=== PATIENT | female | born 1945 | race Hispanic/Latino ===

== ENCOUNTER 2019-02-02 17:28 | Inpatient (IN) | payer MEDICARE ==
[2019-02-02] MEDS: ATIVAN IM PRN (23:17)
[2019-02-02] MEDS: HALDOL IM PRN (23:18)
--- NOTE | 2019-02-03 11:03 | History and Physical Report ---
GP History & Physical - History of Present Illness Date of admission: 02/02/19 Date of Examination: 02/03/19 Reason for Admission: Impaired reality testing, Psychopathology interference, Severe anxiety/depression Chief Complaint: I tired to kill myself History of Present Illness: Patient is a 74 yo retired woman with a history of MDD, Anxiety disorder and multiple medical problems including hypertension, gout, dyslipidemia, CAD s/p CABG, CHF, afib no on anticoagulation, CVA x 2, early dementia and DM type. She was transferred from [facility] to [facility] unit after suicidal attempt via Drug Overdose with Xanax. In my interview with the patient, she admits to have intentional overdosed on Xanax with suicidal intent. She endorses feeling depressed and overwhelmed. She relates her depression to multiple stresses including the behavior of his and their son who lives with them. Her appetite and sleep are decreased. She denies HI/AVH/Paranoia. She continues to feel very depressed and overwhelmed this morning. Legal Status: Voluntary Patient Problems: Current Active Problems Anxiety disorder, unspecified (Acute) MDD (major depressive disorder), recurrent episode, severe (Acute) Reaction to Hospitalization: Resistant Substance History - Substance History Drug Use: none Hx Tobacco Use: No Alcohol Use: No Past psychiatric history - Past Medical History Past Medical History: arthritis, diabetes, hypertension - past Psychiatric treatment and history Psych: Anxiety, Depression - Social History Social history: , lives with family (completed 7th grade ed, retired, no legal problems , has access to guns at home. ) Review of Systems All systems: negative Psychiatric: anxiety, depression Results - Results Labs/Vitals: Laboratory Last Values POC Glucose 264 (70-105) H 02/02/19 21:08 Last Vital Signs Temp 97.5 F L 02/02/19 22:00 Pulse 65 02/02/19 22:00 Resp 18 02/02/19 22:00 BP 182/85 02/02/19 22:00 Pulse Ox 95 02/02/19 22:00 Physical Examination - Constitutional Vitals: Vital Signs Temp Pulse Resp BP Pulse Ox 97.5 F L 65 18 182/85 95 02/02/19 22:00 02/02/19 22:00 02/02/19 22:00 02/02/19 22:00 02/02/19 22:00 Temperature -Last 24 Hours Temperature 97.5 F Temperature 97.5 F General appearance: Present: no acute distress - EENT Eyes: Present: PERRL, EOM intact ENT: hearing intact, clear oral mucosa - Neck Neck: Present: supple, normal ROM - Respiratory Respiratory effort: normal Mental Status Exam - Vital signs Last Vital Signs Temp 97.5 F L 02/02/19 22:00 Pulse 65 02/02/19 22:00 Resp 18 02/02/19 22:00 BP 182/85 02/02/19 22:00 Pulse Ox 95 02/02/19 22:00 - Exam Orientation: time, place, person Affect: depressed, anxious Mood: congruent with affect Thought Process: Intact Perceptions: none Speech: normal rate and pattern Concentration: focused Motor activity: normal Level of consciousness: alert Memory: Intact Sleep Symptoms: Insomnia Appetite: decreased Interaction: cooperative Mini mental status exam(if necessary): 24-30 Assessment and Plan - Psychiatric problem (1) MDD (major depressive disorder), recurrent episode, severe Current Visit: Yes Status: Acute plan to address problem: Patient will be admitted for inpatient psychiatric evaluation, medication adjustment and close monitoring The patient's behavior, mood, sleep and appetite will be closely monitored. Patient will be enrolled in individual and group therapeutic sessions and encouraged to attend. Patient will be provided with a safe and structured environment. Patient's physical health needs will be addressed by the Hospitalist. Social Assessment will be completed and the Cardiac Monitor Technician will work with patient and family to ensure a suitable and safe disposition Medication adjustment will be made as clinically indicated The patient agreed on the treatment plan, understood the risk, benefit, alternative treatment, potential consequence of no treatment, and gave informed consent. (2) Anxiety disorder, unspecified Current Visit: Yes Status: Acute plan to address problem: As above Physician Certification - Certification Statement Physician Certification Statement: This is an acknowledgement statement that STEPHANY STEPHENSON is a 74 year old F who requires inpatient psychiatric admission for treatment which could reasonably be expected to improve the patient's condition for MDD Estimated period of time patient will need to remain in the hospital: 7 days Plan for post-hospital care: Out-patient treatment Medications & Allergies - Medications Allergies/Adverse Reactions: Allergies codeine Adverse Reaction (Verified 02/03/19 03:04) Unknown morphine Adverse Reaction (Verified 02/03/19 03:04) Unknown Penicillins Adverse Reaction (Verified 02/03/19 03:04) Unknown Home Medications: Home Medications Medication Instructions Recorded Confirmed Last Taken Type Hydrocodone-Acetamin 5-300 mg 5 - 325 mg PO BID PRN 02/02/19 02/02/19 Unknown History Insulin NPH Human Isophane 10 units SUB-Q TID 02/02/19 02/02/19 Unknown History [Humulin N] ALPRAZolam [Xanax TAB] 0.5 mg PO BID 02/03/19 02/03/19 Unknown History ARIPiprazole [Abilify TAB] 2 mg PO DAILY 02/03/19 02/03/19 Unknown History Allopurinol [Zyloprim] 300 mg PO DAILY 02/03/19 02/03/19 Unknown History Aspirin 325 mg PO DAILY 02/03/19 02/03/19 Unknown History Atenolol [Tenormin] 50 mg PO DAILY 02/03/19 02/03/19 Unknown History AtorvaSTATin [Lipitor] 40 mg PO HS 02/03/19 02/03/19 Unknown History Clopidogrel [Plavix] 75 mg PO DAILY 02/03/19 02/03/19 Unknown History Escitalopram [Lexapro] 10 mg PO DAILY 02/03/19 02/03/19 Unknown History Fexofenadine HCl 180 mg PO DAILY 02/03/19 02/03/19 Unknown History Insulin Glargine [Lantus VIAL] 30 units SUB-Q HS 02/03/19 02/03/19 Unknown History Insulin Regular, Human [Humulin R] 10 units SUB-Q TID 02/03/19 02/03/19 Unknown History Magnesium Oxide 400 400 mg PO DAILY 02/03/19 02/03/19 Unknown History Montelukast Sodium 10 mg PO DAILY 02/03/19 02/03/19 Unknown History Potassium Chloride [K-Dur] 20 meq PO DAILY 02/03/19 02/03/19 Unknown History Torsemide [Demadex] 20 mg PO DAILY 02/03/19 02/03/19 Unknown History Trazodone HCl 150 mg PO HS 02/03/19 02/03/19 Unknown History amLODIPine [Norvasc] 5 mg PO DAILY 02/03/19 02/03/19 Unknown History Active Medications: Generic Name Dose Route Start Last Admin Trade Name Freq PRN Reason Stop Dose Admin Acetaminophen 650 mg 02/03/19 10:03 Tylenol PO Q6H PRN Pain, Mild (1-3) Haloperidol 5 mg 02/02/19 22:53 Haldol PO Q6H PRN Agitation Haloperidol Lactate 5 mg 02/02/19 22:51 02/02/19 23:18 Haldol IM 5 mg Q6H PRN Administration Agitation Lorazepam 2 mg 02/02/19 22:51 02/02/19 23:17 Ativan IM 2 mg Q6H PRN Administration Agitation Lorazepam 2 mg 02/02/19 22:53 Ativan PO Q6H PRN Agitation
[2019-02-03] MEDS ORDERED: ARIPIPRAZOLE 2 MG PO SCH (11:15)
[2019-02-03 11:36] LABS: Basophils # (Auto) 0.1 K/mm3 (0.0-0.1); Basophils % (Auto) 0.6 % (0.0-1.8); Eosinophils # (Auto) 0.5 K/mm3 (0.0-0.4); Eosinophils % (Auto) 4.8 % (0.0-4.3); Hematocrit 41.5 % (30.3-42.9); Hemoglobin 13.9 gm/dl (10.1-14.3); Lymphocytes # (Auto) 1.8 K/mm3 (1.2-5.4); Lymphocytes % (Auto) 17.8 % (13.4-35.0); Mean Corpuscular HGB Conc 33 % (30-34); Mean Corpuscular Volume 90 fl (79-97); Monocytes # (Auto) 0.8 K/mm3 (0.0-0.8); Monocytes % (Auto) 8.3 % (0.0-7.3); Platelet Count 223 K/mm3 (140-440); Red Blood Count 4.62 M/mm3 (3.65-5.03); Red Cell Distribution Width 14.6 % (13.2-15.2)
[2019-02-03 11:50] LABS: Calcium 8.9 mg/dL (8.4-10.2); Chol/HDL Ratio 5.75 %
[2019-02-03] MEDS: LEXAPRO PO SCH (11:56)
[2019-02-03] MEDS: TYLENOL PO PRN (11:56)
--- NOTE | 2019-02-03 12:27 | Consultation ---
History of Present Illness - Reason for Consult Consult date: 02/03/19 Hyperglycemia, Diabetes Mellitus needing SSI - History of Present Illness Patient is a 74 yo woman with a history of hypertension, gout, dyslipidemia, CAD s/p CABG, CHF, afib no on anticoagulation, CVA x 2, early d ementia, depression and IDDM type 2 on Lantus and Humulin R SSI who presented from [facility] to [facility] Ger[facility] unit after suicidal attempt via Drug Overdose with Xanax. We are consulted for Medical evaluation and management of DM. Patient denies SI. She fell and bite her tongue after the drug overdose. Currently, she denies any specific complaints. PMH: as hpi PSH: left shoulder surgery, bilateral TKR, hysterectomy, CABG, back surgery with rods down spine SH: denies tob/etoh/illicit drug use FH: hypertesnion, DM, OA ROS: Constitutional: denies: fever ENT: denies: throat or neck pain Respiratory: denies: cough, shortness of breath Cardiovascular: denies: chest pain Endocrine: denies unexplained weight loss or gain Gastrointestinal: denies: abdominal pain, nausea Genitourinary: denies: dysuria Rectal: denies no incontinence, no bleeding, no itching, no discharge Musculoskeletal: denies swelling, myaglia, muscle weakness Skin: denies: rash Neurological: denies: headache Hematological/Lymphatic: denies: easy bleeding or easy bruising Allergic/Immunologic: no urticaria, no allergic rhinitis, no anaphylaxis Psych: denies sadness or hopelessness, SI/HI Medications and Allergies Allergies Allergy/AdvReac Type Severity Reaction Status Date / Time codeine AdvReac Unknown Verified 02/03/19 03:04 morphine AdvReac Unknown Verified 02/03/19 03:04 Penicillins AdvReac Unknown Verified 02/03/19 03:04 Home Medications Medication Instructions Recorded Confirmed Last Taken Type Hydrocodone-Acetamin 5-300 mg 5 - 325 mg PO BID PRN 02/02/19 02/02/19 Unknown History Insulin NPH Human Isophane 10 units SUB-Q TID 02/02/19 02/02/19 Unknown History [Humulin N] ALPRAZolam [Xanax TAB] 0.5 mg PO BID 02/03/19 02/03/19 Unknown History ARIPiprazole [Abilify TAB] 2 mg PO DAILY 02/03/19 02/03/19 Unknown History Allopurinol [Zyloprim] 300 mg PO DAILY 02/03/19 02/03/19 Unknown History Aspirin 325 mg PO DAILY 02/03/19 02/03/19 Unknown History Atenolol [Tenormin] 50 mg PO DAILY 02/03/19 02/03/19 Unknown History AtorvaSTATin [Lipitor] 40 mg PO HS 02/03/19 02/03/19 Unknown History Clopidogrel [Plavix] 75 mg PO DAILY 02/03/19 02/03/19 Unknown History Escitalopram [Lexapro] 10 mg PO DAILY 02/03/19 02/03/19 Unknown History Fexofenadine HCl 180 mg PO DAILY 02/03/19 02/03/19 Unknown History Insulin Glargine [Lantus VIAL] 30 units SUB-Q HS 02/03/19 02/03/19 Unknown History Insulin Regular, Human [Humulin R] 10 units SUB-Q TID 02/03/19 02/03/19 Unknown History Magnesium Oxide 400 400 mg PO DAILY 02/03/19 02/03/19 Unknown History Montelukast Sodium 10 mg PO DAILY 02/03/19 02/03/19 Unknown History Potassium Chloride [K-Dur] 20 meq PO DAILY 02/03/19 02/03/19 Unknown History Torsemide [Demadex] 20 mg PO DAILY 02/03/19 02/03/19 Unknown History Trazodone HCl 150 mg PO HS 02/03/19 02/03/19 Unknown History amLODIPine [Norvasc] 5 mg PO DAILY 02/03/19 02/03/19 Unknown History Active Meds: Active Medications Acetaminophen (Tylenol) 650 mg PO Q6H PRN PRN Reason: Pain, Mild (1-3) Last Admin: 02/03/19 11:56 Dose: 650 mg Documented by: Clonazepam (Klonopin) 0.5 mg PO BID [facility] Last Admin: 02/03/19 11:56 Dose: 0.5 mg Documented by: Escitalopram Oxalate (Lexapro) 10 mg PO DAILY [facility] Last Admin: 02/03/19 11:56 Dose: 10 mg Documented by: Haloperidol (Haldol) 5 mg PO Q6H PRN PRN Reason: Agitation Haloperidol Lactate (Haldol) 5 mg IM Q6H PRN PRN Reason: Agitation Last Admin: 02/02/19 23:18 Dose: 5 mg Documented by: Lorazepam (Ativan) 2 mg IM Q6H PRN PRN Reason: Agitation Last Admin: 02/02/19 23:17 Dose: 2 mg Documented by: Lorazepam (Ativan) 2 mg PO Q6H PRN PRN Reason: Agitation Miscellaneous Medication (Aripiprazole [Abilify Tab]) 2 mg PO DAILY BENEDICTO Trazodone HCl (Desyrel) 150 mg PO QHS BENEDICTO Exam - Physical Exam Narrative exam: Gen: WDWN, NAD, Awake, Alert, Orientated HEENT: NCAT, EOMI, PERRL, OP with right tip of tongue laceration Neck: supple, no adenopathy, no thyromegaly, no JVD CVS/Heart: irregular normal S1S2, pulses present bilaterally Chest/Lungs: CTA B, Symmetrical chest expansion, good air entry bilaterally GI/Abdomen: soft, NTND, good bowel sounds, no guarding or rebound /Bladder: no suprapubic tenderness, no CVA or paraspinal tenderness Extermity/Skin: no c/c/e, no obvious rash MSK: FROM x 4 Neuro: CN 2-12 grossly intact, no new focal deficits Psych: calm - Constitutional Vitals: Temp Pulse Resp BP Pulse Ox 97.5 F L 65 18 182/85 95 02/02/19 22:00 02/02/19 22:00 02/02/19 22:00 02/02/19 22:00 02/02/19 22:00 Results - Labs CBC & Chem 7: 02/03/19 11:18 02/03/19 11:18 Labs: Abnormal lab results 02/02/19 02/03/19 02/03/19 Range/Units 21:08 07:04 11:18 Arroyo % (Auto) 8.3 H (0.0-7.3) % Eos % (Auto) 4.8 H (0.0-4.3) % Eos # 0.5 H (0.0-0.4) K/mm3 Sodium (137-145) mmol/L Potassium (3.6-5.0) mmol/L Carbon Dioxide (22-30) mmol/L BUN (7-17) mg/dL Glucose (65-100) mg/dL POC Glucose 264 H 263 H (70-105) Hemoglobin A1c (4-6) % Albumin (3.9-5) g/dL Triglycerides (2-149) mg/dL HDL Cholesterol (40-59) mg/dL 02/03/19 02/03/19 02/03/19 Range/Units 11:18 11:18 11:57 Arroyo % (Auto) (0.0-7.3) % Eos % (Auto) (0.0-4.3) % Eos # (0.0-0.4) K/mm3 Sodium 136 L (137-145) mmol/L Potassium 3.5 L (3.6-5.0) mmol/L Carbon Dioxide 20 L (22-30) mmol/L BUN 18 H (7-17) mg/dL Glucose 333 H (65-100) mg/dL POC Glucose 308 H (70-105) Hemoglobin A1c 9.1 H (4-6) % Albumin 3.0 L (3.9-5) g/dL Triglycerides 315 H (2-149) mg/dL HDL Cholesterol 33 L (40-59) mg/dL Assessment and Plan Patient is a 74 yo woman with a history of hypertension, gout, dyslipidemia, CAD s/p CABG, CHF, afib no on anticoagulation, CVA x 2, early dementia, depression and IDDM type 2 on Lantus and Humulin R SSI who presented from [facility] to [facility] unit after suicidal attempt via Drug Overdose with Xanax. We are consulted for Medical evaluation and management of DM. Patient denies SI. She fell and bite her tongue after the drug overdose. Currently, she denies any specific complaints. -Uncontrolled type 2 DM with hyperglycemia on insulin: Restart Lantus and sliding scale, check A1C (I reviewed [facility] medical records and did not see an A1c) -Afib: continue rate control medication, not on anticoagulation maybe due to f all risk,get baseline EKG -CHF: continue lasix 20mg/d -Gout: Allopurinol -Depression with SA: per psych -Stage 2 sacral ulcer: consult wound care -Functional quadriplegia: consult PT -Accelerated hypertension: restart bblocker Thank you, please call me with future issues
[2019-02-03] MEDS ORDERED: NON-FORMULARY (Aripiprazole [Abilify Tab] 5 MG) PO SCH (13:00)
[2019-02-03] MEDS ORDERED: ZYLOPRIM PO SCH (13:00)
[2019-02-03] MEDS ORDERED: MIRALAX 3350 PO PRN (13:00)
[2019-02-03] MEDS ORDERED: D50W (25GM) Syringe IV PRN (13:00)
[2019-02-03] MEDS: ARIPiprazole PO SCH (13:36)
[2019-02-03] MEDS: ASPIRIN PO SCH (13:38)
[2019-02-03] MEDS: PLAVIX PO SCH (13:38)
[2019-02-03] MEDS: PROTONIX PO SCH (13:38)
[2019-02-03] MEDS: HumaLOG SUB-Q SCH ×2 (13:39→17:15)
[2019-02-03] MEDS: NORVASC PO SCH (13:56)
[2019-02-03] MEDS: ZYLOPRIM PO SCH (15:27)
[2019-02-03 15:50] LABS: Bilirubin,Urine NEG (Negative); Blood,Urine MOD (Negative); Color,Urine Yellow (Yellow); Hyaline Casts,Urine 2 /LPF; Mucus,Urine FEW /HPF; Urobilinogen,Urine < 2.0 mg/dL (<2.0)
[2019-02-03 15:57] LABS: Protein,Urine >500 mg/dL (Negative)
[2019-02-03] MEDS ORDERED: NON-FORMULARY (Trazodone Hcl [Trazodone Hcl] 150 MG) PO SCH (22:00)
[2019-02-03] MEDS: ATIVAN PO PRN (22:35)
[2019-02-03] MEDS: DESYREL PO SCH (22:36)
[2019-02-03] MEDS: LANTUS SUB-Q SCH (23:45)
[2019-02-04] MEDS: HumaLOG SUB-Q SCH ×5 (00:11→21:14)
[2019-02-04 07:04] LABS: Hematocrit 39.1 % (30.3-42.9); Hemoglobin 13.4 gm/dl (10.1-14.3); Mean Corpuscular HGB Conc 34 % (30-34); Mean Corpuscular Volume 89 fl (79-97); Platelet Count 197 K/mm3 (140-440); Red Cell Distribution Width 14.7 % (13.2-15.2)
[2019-02-04] MEDS ORDERED: K-DUR PO NR (07:31)
[2019-02-04 07:35] LABS: Calcium 8.8 mg/dL (8.4-10.2)
[2019-02-04] MEDS ORDERED: NON-FORMULARY (Fexofenadine Hcl [Fexofenadine Hcl] 180 MG) PO SCH (10:00)
[2019-02-04] MEDS ORDERED: MAGNESIUM OXIDE PO SCH (10:00)
[2019-02-04] MEDS: ARIPiprazole PO SCH (10:12)
[2019-02-04] MEDS: ZYLOPRIM PO SCH (10:14)
[2019-02-04] MEDS: K-DUR PO SCH (10:14)
[2019-02-04] MEDS: ASPIRIN PO SCH (10:15)
[2019-02-04] MEDS: LEXAPRO PO SCH (10:15)
[2019-02-04] MEDS: PLAVIX PO SCH (10:15)
[2019-02-04] MEDS: SINGULAIR PO SCH (10:15)
[2019-02-04] MEDS: CLARITIN PO SCH (10:15)
[2019-02-04] MEDS: PROTONIX PO SCH (10:15)
[2019-02-04] MEDS: MAG-OX PO SCH (10:15)
[2019-02-04] MEDS: NORVASC PO SCH (10:17)
[2019-02-04] MEDS: TENORMIN PO SCH (10:17)
[2019-02-04] MEDS: HALDOL PO PRN (21:13)
[2019-02-04] MEDS: ATIVAN PO PRN (21:13)
[2019-02-04] MEDS: DESYREL PO SCH (21:13)
[2019-02-04] MEDS: LANTUS SUB-Q SCH (22:16)
[2019-02-05] MEDS: HumaLOG SUB-Q SCH ×4 (08:11→21:18)
[2019-02-05] MEDS: K-DUR PO SCH (09:13)
[2019-02-05] MEDS: ARIPiprazole PO SCH (09:13)
[2019-02-05] MEDS: PLAVIX PO SCH (09:13)
[2019-02-05] MEDS: ASPIRIN PO SCH (09:14)
[2019-02-05] MEDS: CLARITIN PO SCH (09:14)
[2019-02-05] MEDS: TENORMIN PO SCH (09:14)
[2019-02-05] MEDS: SINGULAIR PO SCH (09:15)
[2019-02-05] MEDS: NORVASC PO SCH (09:15)
[2019-02-05] MEDS: ZYLOPRIM PO SCH (09:15)
[2019-02-05] MEDS: PROTONIX PO SCH (09:46)
[2019-02-05] MEDS: LEXAPRO PO SCH (09:46)
[2019-02-05] MEDS: MAG-OX PO SCH (09:46)
--- NOTE | 2019-02-05 16:56 | Progress Note ---
Subjective Date of service: 02/05/19 Principal diagnosis: Severe depression and Anxiety Subjective Comment: The patient is easily irritable, anxious and very depressed. She is guarded and unrealistic. She denies SI/HI/AVH/Paranoia. She is compliant with medications and denies side effects. MSE Orientation: time, place, person Affect: depressed, anxious Mood: congruent with affect Thought Process: Intact Perceptions: none Speech: normal rate and pattern Concentration: focused Motor activity: normal Level of consciousness: alert Memory: Intact Sleep Symptoms: Insomnia Appetite: decreased Interaction: cooperative Objective - Criteria for Continued Treatment Criteria for Continued Treatment: Improving Level of Functioning, Stablizing Level of Functioning, Improving Emotional/Socia - Objective Observation Participation Level: Moderate Assessment and Plan - Patient Problems (1) MDD (major depressive disorder), recurrent episode, severe Current Visit: Yes Status: Acute Plan to address problem: Patient will be admitted for inpatient psychiatric evaluation, medication adjustment and close monitoring The patient's behavior, mood, sleep and appetite will be closely monitored. Patient will be enrolled in individual and group therapeutic sessions and encouraged to attend. Patient will be provided with a safe and structured environment. Patient's physical health needs will be addressed by the Hospitalist. Social Assessment will be completed and the Instrumentation And Controls Technician will work with patient and family to ensure a suitable and safe disposition Medication adjustment will be made as clinically indicated The patient agreed on the treatment plan, understood the risk, benefit, alternative treatment, potential consequence of no treatment, and gave informed consent. (2) Anxiety disorder, unspecified Current Visit: Yes Status: Acute Plan to address problem: As above Medications & Allergies - Medications Allergies/Adverse Reactions: Allergies codeine Adverse Reaction (Verified 02/03/19 03:04) Unknown morphine Adverse Reaction (Verified 02/03/19 03:04) Unknown Penicillins Adverse Reaction (Verified 02/03/19 03:04) Unknown Home Medications: Home Medications Medication Instructions Recorded Confirmed Last Taken Type Hydrocodone-Acetamin 5-300 mg 5 - 325 mg PO BID PRN 02/02/19 02/02/19 Unknown History Insulin NPH Human Isophane 10 units SUB-Q TID 02/02/19 02/02/19 Unknown History [Humulin N] ALPRAZolam [Xanax TAB] 0.5 mg PO BID 02/03/19 02/03/19 Unknown History ARIPiprazole [Abilify TAB] 2 mg PO DAILY 02/03/19 02/03/19 Unknown History Allopurinol [Zyloprim] 300 mg PO DAILY 02/03/19 02/03/19 Unknown History Aspirin 325 mg PO DAILY 02/03/19 02/03/19 Unknown History Atenolol [Tenormin] 50 mg PO DAILY 02/03/19 02/03/19 Unknown History AtorvaSTATin [Lipitor] 40 mg PO HS 02/03/19 02/03/19 Unknown History Clopidogrel [Plavix] 75 mg PO DAILY 02/03/19 02/03/19 Unknown History Escitalopram [Lexapro] 10 mg PO DAILY 02/03/19 02/03/19 Unknown History Fexofenadine HCl 180 mg PO DAILY 02/03/19 02/03/19 Unknown History Insulin Glargine [Lantus VIAL] 30 units SUB-Q HS 02/03/19 02/03/19 Unknown History Insulin Regular, Human [Humulin R] 10 units SUB-Q TID 02/03/19 02/03/19 Unknown History Magnesium Oxide 400 400 mg PO DAILY 02/03/19 02/03/19 Unknown History Montelukast Sodium 10 mg PO DAILY 02/03/19 02/03/19 Unknown History Potassium Chloride [K-Dur] 20 meq PO DAILY 02/03/19 02/03/19 Unknown History Torsemide [Demadex] 20 mg PO DAILY 02/03/19 02/03/19 Unknown History Trazodone HCl 150 mg PO HS 02/03/19 02/03/19 Unknown History amLODIPine [Norvasc] 5 mg PO DAILY 02/03/19 02/03/19 Unknown History Active Medications: Generic Name Dose Route Start Last Admin Trade Name Freq PRN Reason Stop Dose Admin Acetaminophen 650 mg 02/03/19 10:03 02/03/19 11:56 Tylenol PO 650 mg Q6H PRN Administration Pain, Mild (1-3) Allopurinol 150 mg 02/03/19 14:00 02/05/19 09:15 Zyloprim PO 150 mg DAILY BENEDICTO Administration Amlodipine Besylate 5 mg 02/03/19 14:00 02/05/19 09:15 Norvasc PO 5 mg DAILY BENEDICTO Administration Aripiprazole 5 mg 02/03/19 14:00 02/05/19 09:13 Abilify PO 5 mg QDAY BENEDICTO Administration Aspirin 325 mg 02/03/19 14:00 02/05/19 09:14 Aspirin PO 325 mg DAILY BENEDICTO Administration Atenolol 50 mg 02/04/19 10:00 02/05/19 09:14 Tenormin PO 50 mg DAILY BENEDICTO Administration Atorvastatin Calcium 40 mg 02/03/19 22:00 02/04/19 21:12 Lipitor PO 40 mg HS BENEDICTO Administration Clonazepam 0.5 mg 02/03/19 12:00 02/05/19 09:13 Klonopin PO 0.5 mg BID BENEDICTO Administration Clopidogrel Bisulfate 75 mg 02/03/19 14:00 02/05/19 09:13 Plavix PO 75 mg DAILY BENEDICTO Administration Dextrose 50 ml 02/03/19 13:00 D50w (25gm) Syringe IV PRN PRN Hypoglycemia Escitalopram Oxalate 10 mg 02/03/19 12:00 02/05/19 09:46 Lexapro PO 10 mg DAILY BENEDICTO Administration Haloperidol 5 mg 02/02/19 22:53 02/04/19 21:13 Haldol PO 5 mg Q6H PRN Administration Agitation Haloperidol Lactate 5 mg 02/02/19 22:51 02/02/19 23:18 Haldol IM 5 mg Q6H PRN Administration Agitation Insulin Glargine 20 units 02/03/19 22:00 02/04/19 22:16 Lantus SUB-Q 20 units HS BENEDICTO Administration Insulin Human Lispro 0 unit 02/03/19 13:00 02/05/19 11:47 Humalog SUB-Q 6 unit ACHS BENEDICTO Administration Protocol Loratadine 10 mg 02/04/19 10:00 02/05/19 09:14 Claritin PO 10 mg DAILY BENEDICTO Administration Lorazepam 2 mg 02/02/19 22:51 02/02/19 23:17 Ativan IM 2 mg Q6H PRN Administration Agitation Lorazepam 2 mg 02/02/19 22:53 02/04/19 21:13 Ativan PO 2 mg Q6H PRN Administration Agitation Magnesium Oxide 400 mg 02/04/19 10:00 02/05/19 09:46 Mag-Ox PO 400 mg QDAY BENEDICTO Administration Montelukast Sodium 10 mg 02/04/19 10:00 02/05/19 09:15 Singulair PO 10 mg DAILY BENEDICTO Administration Pantoprazole Sodium 40 mg 02/03/19 13:00 02/05/19 09:46 Protonix PO 40 mg QDAY BENEDICTO Administration Polyethylene Glycol 17 gm 02/03/19 13:00 Miralax 3350 PO QDAY PRN Constipation Potassium Chloride 20 meq 02/04/19 10:00 02/05/19 09:13 K-Dur PO 20 meq DAILY BENEDICTO Administration Trazodone HCl 150 mg 02/03/19 22:00 02/04/19 21:13 Desyrel PO 150 mg QHS BENEDICTO Administration
[2019-02-05] MEDS: TYLENOL PO PRN (17:04)
[2019-02-05] MEDS: HALDOL PO PRN (20:13)
[2019-02-05] MEDS: ATIVAN PO PRN (20:13)
[2019-02-05] MEDS: LANTUS SUB-Q SCH (21:17)
[2019-02-05] MEDS: DESYREL PO SCH (21:19)
--- NOTE | 2019-02-06 09:15 | Progress Note ---
Subjective Date of service: 02/06/19 Principal diagnosis: Severe depression and Anxiety Subjective Comment: The patient is anxious and very depressed. She is guarded and unrealistic. She denies SI/HI/AVH/Paranoia. She is compliant with medications and denies side effects. MSE Orientation: time, place, person Affect: depressed, anxious Mood: congruent with affect Thought Process: Intact Perceptions: none Speech: normal rate and pattern Concentration: focused Motor activity: normal Level of consciousness: alert Memory: Intact Sleep Symptoms: Insomnia Appetite: decreased Interaction: cooperative Objective - Criteria for Continued Treatment Criteria for Continued Treatment: Improving Level of Functioning, Stablizing Level of Functioning, Improving Emotional/Socia - Objective Observation Participation Level: Minimal Assessment and Plan - Patient Problems (1) MDD (major depressive disorder), recurrent episode, severe Current Visit: Yes Status: Acute Plan to address problem: Patient will be admitted for inpatient psychiatric evaluation, medication adjustment and close monitoring The patient's behavior, mood, sleep and appetite will be closely monitored. Patient will be enrolled in individual and group therapeutic sessions and encouraged to attend. Patient will be provided with a safe and structured environment. Patient's physical health needs will be addressed by the Hospitalist. Social Assessment will be completed and the Outdoor Landscape Architect will work with patient and family to ensure a suitable and safe disposition Medication adjustment will be made as clinically indicated The patient agreed on the treatment plan, understood the risk, benefit, alternative treatment, potential consequence of no treatment, and gave informed consent. (2) Anxiety disorder, unspecified Current Visit: Yes Status: Acute Plan to address problem: As above
[2019-02-06] MEDS: HumaLOG SUB-Q SCH ×4 (09:30→21:42)
[2019-02-06] MEDS: ASPIRIN PO SCH (09:31)
[2019-02-06] MEDS: CLARITIN PO SCH (09:31)
[2019-02-06] MEDS: ARIPiprazole PO SCH (09:31)
[2019-02-06] MEDS: K-DUR PO SCH (09:32)
[2019-02-06] MEDS: PROTONIX PO SCH (09:32)
[2019-02-06] MEDS: PLAVIX PO SCH (09:32)
[2019-02-06] MEDS: LEXAPRO PO SCH (09:32)
[2019-02-06] MEDS: MAG-OX PO SCH (09:32)
[2019-02-06] MEDS: SINGULAIR PO SCH (09:33)
[2019-02-06] MEDS: ZYLOPRIM PO SCH (09:35)
[2019-02-06] MEDS: TENORMIN PO SCH (10:09)
[2019-02-06] MEDS: NORVASC PO SCH (10:10)
[2019-02-06] MEDS: TYLENOL PO PRN ×2 (14:23→20:39)
[2019-02-06] MEDS: HALDOL PO PRN (20:40)
[2019-02-06] MEDS: ATIVAN PO PRN (20:40)
[2019-02-06] MEDS: DESYREL PO SCH (21:41)
[2019-02-06] MEDS: LANTUS SUB-Q SCH (21:43)
[2019-02-07] MEDS: TYLENOL PO PRN (03:20)
[2019-02-07] MEDS: ATIVAN IM PRN (03:43)
[2019-02-07] MEDS: HALDOL IM PRN (03:45)
[2019-02-07] MEDS: HumaLOG SUB-Q SCH ×4 (08:57→22:00)
[2019-02-07] MEDS: NORVASC PO SCH (09:53)
[2019-02-07] MEDS: MAG-OX PO SCH (09:53)
[2019-02-07] MEDS: LEXAPRO PO SCH (09:54)
[2019-02-07] MEDS: ASPIRIN PO SCH (09:54)
[2019-02-07] MEDS: PLAVIX PO SCH (09:54)
[2019-02-07] MEDS: K-DUR PO SCH (09:54)
[2019-02-07] MEDS: SINGULAIR PO SCH (09:54)
[2019-02-07] MEDS: ARIPiprazole PO SCH (09:54)
[2019-02-07] MEDS: TENORMIN PO SCH (09:55)
[2019-02-07] MEDS: CLARITIN PO SCH (09:55)
[2019-02-07] MEDS: ZYLOPRIM PO SCH (09:55)
[2019-02-07] MEDS: PROTONIX PO SCH (09:55)
[2019-02-07] MEDS ORDERED: HumaLOG SUB-Q ONE (18:00)
[2019-02-07] MEDS: DESYREL PO SCH (22:57)
[2019-02-07] MEDS: LANTUS SUB-Q SCH (23:58)
--- NOTE | 2019-02-08 06:50 | Progress Note ---
Subjective Date of service: 03/09/19 Principal diagnosis: Severe depression and Anxiety Subjective Comment: The patient irritable, disruptive and required PRN Haldol and Lorazepam last night. She continues to be anxious and very depressed. She denies SI/HI/AVH/Paranoia. She is compliant with medications and denies side effects. MSE Orientation: time, place, person Affect: depressed, anxious Mood: congruent with affect Thought Process: Intact Perceptions: none Speech: normal rate and pattern Concentration: focused Motor activity: normal Level of consciousness: alert Memory: Intact Sleep Symptoms: Insomnia Appetite: decreased Interaction: cooperative Objective - Criteria for Continued Treatment Criteria for Continued Treatment: Improving Level of Functioning, Stablizing Level of Functioning, Improving Emotional/Socia - Objective Observation Participation Level: Minimal Assessment and Plan - Patient Problems (1) MDD (major depressive disorder), recurrent episode, severe Current Visit: Yes Status: Acute Plan to address problem: Patient will be admitted for inpatient psychiatric evaluation, medication adjustment and close monitoring The patient's behavior, mood, sleep and appetite will be closely monitored. Patient will be enrolled in individual and group therapeutic sessions and encouraged to attend. Patient will be provided with a safe and structured environment. Patient's physical health needs will be addressed by the Hospitalist. Social Assessment will be completed and the Safemaker will work with patient and family to ensure a suitable and safe disposition Medication adjustment will be made as clinically indicated Will gradually decrease and discontinue Clonazepam The patient agreed on the treatment plan, understood the risk, benefit, alternative treatment, potential consequence of no treatment, and gave informed consent. (2) Anxiety disorder, unspecified Current Visit: Yes Status: Acute Plan to address problem: As above Medications & Allergies - Medications Allergies/Adverse Reactions: Allergies codeine Adverse Reaction (Verified 02/03/19 03:04) Unknown morphine Adverse Reaction (Verified 02/03/19 03:04) Unknown Penicillins Adverse Reaction (Verified 02/03/19 03:04) Unknown Home Medications: Home Medications Medication Instructions Recorded Confirmed Last Taken Type Hydrocodone-Acetamin 5-300 mg 5 - 325 mg PO BID PRN 02/02/19 02/02/19 Unknown History Insulin NPH Human Isophane 10 units SUB-Q TID 02/02/19 02/02/19 Unknown History [Humulin N] ALPRAZolam [Xanax TAB] 0.5 mg PO BID 02/03/19 02/03/19 Unknown History ARIPiprazole [Abilify TAB] 2 mg PO DAILY 02/03/19 02/03/19 Unknown History Allopurinol [Zyloprim] 300 mg PO DAILY 02/03/19 02/03/19 Unknown History Aspirin 325 mg PO DAILY 02/03/19 02/03/19 Unknown History Atenolol [Tenormin] 50 mg PO DAILY 02/03/19 02/03/19 Unknown History AtorvaSTATin [Lipitor] 40 mg PO HS 02/03/19 02/03/19 Unknown History Clopidogrel [Plavix] 75 mg PO DAILY 02/03/19 02/03/19 Unknown History Escitalopram [Lexapro] 10 mg PO DAILY 02/03/19 02/03/19 Unknown History Fexofenadine HCl 180 mg PO DAILY 02/03/19 02/03/19 Unknown History Insulin Glargine [Lantus VIAL] 30 units SUB-Q HS 02/03/19 02/03/19 Unknown History Insulin Regular, Human [Humulin R] 10 units SUB-Q TID 02/03/19 02/03/19 Unknown History Magnesium Oxide 400 400 mg PO DAILY 02/03/19 02/03/19 Unknown History Montelukast Sodium 10 mg PO DAILY 02/03/19 02/03/19 Unknown History Potassium Chloride [K-Dur] 20 meq PO DAILY 02/03/19 02/03/19 Unknown History Torsemide [Demadex] 20 mg PO DAILY 02/03/19 02/03/19 Unknown History Trazodone HCl 150 mg PO HS 02/03/19 02/03/19 Unknown History amLODIPine [Norvasc] 5 mg PO DAILY 02/03/19 02/03/19 Unknown History Active Medications: Generic Name Dose Route Start Last Admin Trade Name Freq PRN Reason Stop Dose Admin Acetaminophen 650 mg 02/03/19 10:03 02/07/19 03:20 Tylenol PO 650 mg Q6H PRN Administration Pain, Mild (1-3) Allopurinol 150 mg 02/03/19 14:00 02/07/19 09:55 Zyloprim PO 150 mg DAILY BENEDICTO Administration Amlodipine Besylate 5 mg 02/03/19 14:00 02/07/19 09:53 Norvasc PO 5 mg DAILY BENEDICTO Administration Aripiprazole 5 mg 02/03/19 14:00 02/07/19 09:54 Abilify PO 5 mg QDAY BENEDICTO Administration Aspirin 325 mg 02/03/19 14:00 02/07/19 09:54 Aspirin PO 325 mg DAILY BENEDICTO Administration Atenolol 50 mg 02/04/19 10:00 02/07/19 09:55 Tenormin PO 50 mg DAILY BENEDICTO Administration Atorvastatin Calcium 40 mg 02/03/19 22:00 02/07/19 22:58 Lipitor PO 40 mg HS BENEDICTO Administration Clonazepam 0.5 mg 02/03/19 12:00 02/07/19 22:58 Klonopin PO 0.5 mg BID BENEDICTO Administration Clopidogrel Bisulfate 75 mg 02/03/19 14:00 02/07/19 09:54 Plavix PO 75 mg DAILY BENEDICTO Administration Dextrose 50 ml 02/03/19 13:00 D50w (25gm) Syringe IV PRN PRN Hypoglycemia Escitalopram Oxalate 10 mg 02/03/19 12:00 02/07/19 09:54 Lexapro PO 10 mg DAILY BENEDICTO Administration Haloperidol 5 mg 02/02/19 22:53 02/06/19 20:40 Haldol PO 5 mg Q6H PRN Administration Agitation Haloperidol Lactate 5 mg 02/02/19 22:51 02/07/19 03:45 Haldol IM 5 mg Q6H PRN Administration Agitation Insulin Glargine 20 units 02/03/19 22:00 02/07/19 23:58 Lantus SUB-Q 20 units HS BENEDICTO Administration Insulin Human Lispro 0 unit 02/03/19 13:00 02/07/19 22:00 Humalog SUB-Q 4 unit ACHS BENEDICTO Administration Protocol Loratadine 10 mg 02/04/19 10:00 02/07/19 09:55 Claritin PO 10 mg DAILY BENEDICTO Administration Lorazepam 2 mg 02/02/19 22:51 02/07/19 03:43 Ativan IM 2 mg Q6H PRN Administration Agitation Lorazepam 2 mg 02/02/19 22:53 02/06/19 20:40 Ativan PO 2 mg Q6H PRN Administration Agitation Magnesium Oxide 400 mg 02/04/19 10:00 02/07/19 09:53 Mag-Ox PO 400 mg QDAY BENEDICTO Administration Montelukast Sodium 10 mg 02/04/19 10:00 02/07/19 09:54 Singulair PO 10 mg DAILY BENEDICTO Administration Pantoprazole Sodium 40 mg 02/03/19 13:00 02/07/19 09:55 Protonix PO 40 mg QDAY BENEDICTO Administration Polyethylene Glycol 17 gm 02/03/19 13:00 Miralax 3350 PO QDAY PRN Constipation Potassium Chloride 20 meq 02/04/19 10:00 02/07/19 09:54 K-Dur PO 20 meq DAILY BENEDICTO Administration Trazodone HCl 150 mg 02/03/19 22:00 02/07/19 22:57 Desyrel PO 150 mg QHS BENEDICTO Administration
[2019-02-08] MEDS: ARIPiprazole PO SCH (09:25)
[2019-02-08] MEDS: CLARITIN PO SCH (09:26)
[2019-02-08] MEDS: PLAVIX PO SCH (09:26)
[2019-02-08] MEDS: TENORMIN PO SCH (09:26)
[2019-02-08] MEDS: MAG-OX PO SCH (09:26)
[2019-02-08] MEDS: PROTONIX PO SCH (09:27)
[2019-02-08] MEDS: ASPIRIN PO SCH (09:27)
[2019-02-08] MEDS: SINGULAIR PO SCH (09:27)
[2019-02-08] MEDS: ZYLOPRIM PO SCH (09:27)
[2019-02-08] MEDS: K-DUR PO SCH (09:27)
[2019-02-08] MEDS: NORVASC PO SCH (09:30)
[2019-02-08] MEDS: HumaLOG SUB-Q SCH ×4 (09:32→21:08)
[2019-02-08] MEDS: LEXAPRO PO SCH (10:00)
--- NOTE | 2019-02-08 11:30 | Progress Note ---
Subjective Date of service: 02/08/19 Principal diagnosis: Severe depression and Anxiety Subjective Comment: The patient continues to be irritable, disruptive, anxious and very depressed. She denies SI/HI/AVH/Paranoia. She is compliant with medications and denies side effects. MSE Orientation: time, place, person Affect: depressed, anxious Mood: congruent with affect Thought Process: Intact Perceptions: none Speech: normal rate and pattern Concentration: focused Motor activity: normal Level of consciousness: alert Memory: Intact Sleep Symptoms: Insomnia Appetite: decreased Interaction: cooperative Objective - Criteria for Continued Treatment Criteria for Continued Treatment: Improving Level of Functioning, Reducing Isolative Behaviors, Stablizing Level of Functioning, Improving Emotional/Socia - Objective Observation Participation Level: Minimal Assessment and Plan - Patient Problems (1) MDD (major depressive disorder), recurrent episode, severe Current Visit: Yes Status: Acute Plan to address problem: Patient will be admitted for inpatient psychiatric evaluation, medication adjustment and close monitoring The patient's behavior, mood, sleep and appetite will be closely monitored. Patient will be enrolled in individual and group therapeutic sessions and encouraged to attend. Patient will be provided with a safe and structured environment. Patient's physical health needs will be addressed by the Hospitalist. Social Assessment will be completed and the Agricultural Plow Operator will work with patient and family to ensure a suitable and safe disposition Medication adjustment will be made as clinically indicated Will continue to wean off Clonazepam The patient agreed on the treatment plan, understood the risk, benefit, alternative treatment, potential consequence of no treatment, and gave informed consent. (2) Anxiety disorder, unspecified Current Visit: Yes Status: Acute Plan to address problem: As above
[2019-02-08] MEDS: ATIVAN PO PRN (21:09)
[2019-02-08] MEDS: DESYREL PO SCH (21:10)
[2019-02-08] MEDS: HALDOL PO PRN (21:10)
[2019-02-08] MEDS: LANTUS SUB-Q SCH (21:26)
[2019-02-09] MEDS ORDERED: ATIVAN IM ONE (01:16)
[2019-02-09] MEDS ORDERED: HALDOL IM ONE (01:16)
[2019-02-09] MEDS ORDERED: COGENTIN IM ONE (01:17)
[2019-02-09] MEDS: TYLENOL PO PRN ×3 (04:16→20:12)
[2019-02-09] MEDS: HumaLOG SUB-Q SCH ×4 (08:12→21:38)
[2019-02-09] MEDS: PLAVIX PO SCH (09:41)
[2019-02-09] MEDS: LEXAPRO PO SCH (09:42)
[2019-02-09] MEDS: TENORMIN PO SCH (09:42)
[2019-02-09] MEDS: NORVASC PO SCH (09:42)
[2019-02-09] MEDS: PROTONIX PO SCH (09:42)
[2019-02-09] MEDS: ASPIRIN PO SCH (09:42)
[2019-02-09] MEDS: K-DUR PO SCH (09:42)
[2019-02-09] MEDS: SINGULAIR PO SCH (09:42)
[2019-02-09] MEDS: MAG-OX PO SCH (09:42)
[2019-02-09] MEDS: ZYLOPRIM PO SCH (09:43)
[2019-02-09] MEDS: CLARITIN PO SCH (09:43)
[2019-02-09] MEDS: ARIPiprazole PO SCH (09:43)
--- NOTE | 2019-02-09 10:47 | Progress Note ---
Subjective Date of service: 02/09/19 Principal diagnosis: Severe depression and Anxiety Subjective Comment: The patient was very agitated, restless and distressed last night. She hallucinated, called out for people that were not in the room. She received multiple PRN meds for agitation. She did not sleep well last night. She continues to be irritable, disruptive, anxious and very depressed. No SI/HI She is compliant with medications and denies side effects. MSE Orientation: time, place, person Affect: depressed, anxious Mood: congruent with affect Thought Process: Intact Perceptions: none Speech: normal rate and pattern Concentration: focused Motor activity: normal Level of consciousness: alert Memory: Intact Sleep Symptoms: Insomnia Appetite: decreased Interaction: cooperative Objective - Criteria for Continued Treatment Criteria for Continued Treatment: Improving Level of Functioning, Stablizing Level of Functioning, Improving Emotional/Socia - Objective Observation Participation Level: Minimal Reason(s) For Not Participating: Not Interested Assessment and Plan - Patient Problems (1) MDD (major depressive disorder), recurrent episode, severe Current Visit: Yes Status: Acute Plan to address problem: Patient will be admitted for inpatient psychiatric evaluation, medication adjustment and close monitoring The patient's behavior, mood, sleep and appetite will be closely monitored. Patient will be enrolled in individual and group therapeutic sessions and encouraged to attend. Patient will be provided with a safe and structured environment. Patient's physical health needs will be addressed by the Hospitalist. Social Assessment will be completed and the Wheelchair Van Driver will work with patient and family to ensure a suitable and safe disposition Medication adjustment will be made as clinically indicated Will continue to wean off Clonazepam. Will decrease it to 0.5mg qhs from tonight. The patient agreed on the treatment plan, understood the risk, benefit, alternative treatment, potential consequence of no treatment, and gave informed consent. (2) Anxiety disorder, unspecified Current Visit: Yes Status: Acute Plan to address problem: As above Medications & Allergies - Medications Allergies/Adverse Reactions: Allergies codeine Adverse Reaction (Verified 02/03/19 03:04) Unknown morphine Adverse Reaction (Verified 02/03/19 03:04) Unknown Penicillins Adverse Reaction (Verified 02/03/19 03:04) Unknown Home Medications: Home Medications Medication Instructions Recorded Confirmed Last Taken Type Hydrocodone-Acetamin 5-300 mg 5 - 325 mg PO BID PRN 02/02/19 02/02/19 Unknown History Insulin NPH Human Isophane 10 units SUB-Q TID 02/02/19 02/02/19 Unknown History [Humulin N] ALPRAZolam [Xanax TAB] 0.5 mg PO BID 02/03/19 02/03/19 Unknown History ARIPiprazole [Abilify TAB] 2 mg PO DAILY 02/03/19 02/03/19 Unknown History Allopurinol [Zyloprim] 300 mg PO DAILY 02/03/19 02/03/19 Unknown History Aspirin 325 mg PO DAILY 02/03/19 02/03/19 Unknown History Atenolol [Tenormin] 50 mg PO DAILY 02/03/19 02/03/19 Unknown History AtorvaSTATin [Lipitor] 40 mg PO HS 02/03/19 02/03/19 Unknown History Clopidogrel [Plavix] 75 mg PO DAILY 02/03/19 02/03/19 Unknown History Escitalopram [Lexapro] 10 mg PO DAILY 02/03/19 02/03/19 Unknown History Fexofenadine HCl 180 mg PO DAILY 02/03/19 02/03/19 Unknown History Insulin Glargine [Lantus VIAL] 30 units SUB-Q HS 02/03/19 02/03/19 Unknown History Insulin Regular, Human [Humulin R] 10 units SUB-Q TID 02/03/19 02/03/19 Unknown History Magnesium Oxide 400 400 mg PO DAILY 02/03/19 02/03/19 Unknown History Montelukast Sodium 10 mg PO DAILY 02/03/19 02/03/19 Unknown History Potassium Chloride [K-Dur] 20 meq PO DAILY 02/03/19 02/03/19 Unknown History Torsemide [Demadex] 20 mg PO DAILY 02/03/19 02/03/19 Unknown History Trazodone HCl 150 mg PO HS 02/03/19 02/03/19 Unknown History amLODIPine [Norvasc] 5 mg PO DAILY 02/03/19 02/03/19 Unknown History Active Medications: Generic Name Dose Route Start Last Admin Trade Name Freq PRN Reason Stop Dose Admin Acetaminophen 650 mg 02/03/19 10:03 02/09/19 04:16 Tylenol PO 650 mg Q6H PRN Administration Pain, Mild (1-3) Allopurinol 150 mg 02/03/19 14:00 02/09/19 09:43 Zyloprim PO 150 mg DAILY BENEDICTO Administration Amlodipine Besylate 5 mg 02/03/19 14:00 02/09/19 09:42 Norvasc PO 5 mg DAILY BENEDICTO Administration Aripiprazole 5 mg 02/03/19 14:00 02/09/19 09:43 Abilify PO 5 mg QDAY BENEDICTO Administration Aspirin 325 mg 02/03/19 14:00 02/09/19 09:42 Aspirin PO 325 mg DAILY BENEDICTO Administration Atenolol 50 mg 02/04/19 10:00 02/09/19 09:42 Tenormin PO 50 mg DAILY BENEDICTO Administration Atorvastatin Calcium 40 mg 02/03/19 22:00 02/08/19 21:09 Lipitor PO 40 mg HS BENEDICTO Administration Clonazepam 0.5 mg 02/03/19 12:00 02/09/19 09:41 Klonopin PO 0.5 mg BID BENEDICTO Administration Clopidogrel Bisulfate 75 mg 02/03/19 14:00 02/09/19 09:41 Plavix PO 75 mg DAILY BENEDICTO Administration Dextrose 50 ml 02/03/19 13:00 D50w (25gm) Syringe IV PRN PRN Hypoglycemia Escitalopram Oxalate 10 mg 02/03/19 12:00 02/09/19 09:42 Lexapro PO 10 mg DAILY BENEDICTO Administration Haloperidol 5 mg 02/02/19 22:53 02/08/19 21:10 Haldol PO 5 mg Q6H PRN Administration Agitation Haloperidol Lactate 5 mg 02/02/19 22:51 02/07/19 03:45 Haldol IM 5 mg Q6H PRN Administration Agitation Insulin Glargine 20 units 02/03/19 22:00 02/08/19 21:26 Lantus SUB-Q 20 units HS BENEDICTO Administration Insulin Human Lispro 0 unit 02/03/19 13:00 02/09/19 08:12 Humalog SUB-Q 2 unit ACHS BENEDICTO Administration Protocol Loratadine 10 mg 02/04/19 10:00 02/09/19 09:43 Claritin PO 10 mg DAILY BENEDICTO Administration Lorazepam 2 mg 02/02/19 22:51 02/07/19 03:43 Ativan IM 2 mg Q6H PRN Administration Agitation Lorazepam 2 mg 02/02/19 22:53 02/08/19 21:09 Ativan PO 2 mg Q6H PRN Administration Agitation Magnesium Oxide 400 mg 02/04/19 10:00 02/09/19 09:42 Mag-Ox PO 400 mg QDAY BENEDICTO Administration Montelukast Sodium 10 mg 02/04/19 10:00 02/09/19 09:42 Singulair PO 10 mg DAILY BENEDICTO Administration Pantoprazole Sodium 40 mg 02/03/19 13:00 02/09/19 09:42 Protonix PO 40 mg QDAY BENEDICTO Administration Polyethylene Glycol 17 gm 02/03/19 13:00 Miralax 3350 PO QDAY PRN Constipation Potassium Chloride 20 meq 02/04/19 10:00 02/09/19 09:42 K-Dur PO 20 meq DAILY BENEDICTO Administration Trazodone HCl 150 mg 02/03/19 22:00 02/08/19 21:10 Desyrel PO 150 mg QHS BENEDICTO Administration
[2019-02-09] MEDS: HALDOL PO PRN (20:12)
[2019-02-09] MEDS: ATIVAN PO PRN (20:12)
[2019-02-09] MEDS: DESYREL PO SCH (21:14)
[2019-02-09] MEDS: LANTUS SUB-Q SCH (21:35)
[2019-02-10] MEDS: HumaLOG SUB-Q SCH ×4 (08:07→22:06)
[2019-02-10] MEDS: HALDOL IM PRN (08:09)
--- NOTE | 2019-02-10 09:48 | Progress Note ---
Subjective Date of service: 02/10/19 Principal diagnosis: Severe depression and Anxiety Subjective Comment: The patient continues to be very agitated, restless and distressed by hallucinations. Her sleep is poor. She continues to be irritable, disruptive, anxious and very depressed. No SI/HI She is compliant with medications and denies side effects. MSE Orientation: time, place, person Affect: depressed, anxious Mood: congruent with affect Thought Process: Intact Perceptions: none Speech: normal rate and pattern Concentration: focused Motor activity: normal Level of consciousness: alert Memory: Intact Sleep Symptoms: Insomnia Appetite: decreased Interaction: cooperative Objective - Criteria for Continued Treatment Criteria for Continued Treatment: Improving Level of Functioning, Stablizing Level of Functioning, Improving Emotional/Socia - Objective Observation Participation Level: Minimal Assessment and Plan - Patient Problems (1) MDD (major depressive disorder), recurrent episode, severe Current Visit: Yes Status: Acute Plan to address problem: Patient will be admitted for inpatient psychiatric evaluation, medication adjustment and close monitoring The patient's behavior, mood, sleep and appetite will be closely monitored. Patient will be enrolled in individual and group therapeutic sessions and encouraged to attend. Patient will be provided with a safe and structured environment. Patient's physical health needs will be addressed by the Hospitalist. Social Assessment will be completed and the Tree Inspector will work with patient and family to ensure a suitable and safe disposition Medication adjustment will be made as clinically indicated Will continue to wean off Clonazepam. The patient agreed on the treatment plan, understood the risk, benefit, alternative treatment, potential consequence of no treatment, and gave informed consent. (2) Anxiety disorder, unspecified Current Visit: Yes Status: Acute Plan to address problem: As above Medications & Allergies - Medications Allergies/Adverse Reactions: Allergies codeine Adverse Reaction (Verified 02/03/19 03:04) Unknown morphine Adverse Reaction (Verified 02/03/19 03:04) Unknown Penicillins Adverse Reaction (Verified 02/03/19 03:04) Unknown Home Medications: Home Medications Medication Instructions Recorded Confirmed Last Taken Type Hydrocodone-Acetamin 5-300 mg 5 - 325 mg PO BID PRN 02/02/19 02/02/19 Unknown History Insulin NPH Human Isophane 10 units SUB-Q TID 02/02/19 02/02/19 Unknown History [Humulin N] ALPRAZolam [Xanax TAB] 0.5 mg PO BID 02/03/19 02/03/19 Unknown History ARIPiprazole [Abilify TAB] 2 mg PO DAILY 02/03/19 02/03/19 Unknown History Allopurinol [Zyloprim] 300 mg PO DAILY 02/03/19 02/03/19 Unknown History Aspirin 325 mg PO DAILY 02/03/19 02/03/19 Unknown History Atenolol [Tenormin] 50 mg PO DAILY 02/03/19 02/03/19 Unknown History AtorvaSTATin [Lipitor] 40 mg PO HS 02/03/19 02/03/19 Unknown History Clopidogrel [Plavix] 75 mg PO DAILY 02/03/19 02/03/19 Unknown History Escitalopram [Lexapro] 10 mg PO DAILY 02/03/19 02/03/19 Unknown History Fexofenadine HCl 180 mg PO DAILY 02/03/19 02/03/19 Unknown History Insulin Glargine [Lantus VIAL] 30 units SUB-Q HS 02/03/19 02/03/19 Unknown History Insulin Regular, Human [Humulin R] 10 units SUB-Q TID 02/03/19 02/03/19 Unknown History Magnesium Oxide 400 400 mg PO DAILY 02/03/19 02/03/19 Unknown History Montelukast Sodium 10 mg PO DAILY 02/03/19 02/03/19 Unknown History Potassium Chloride [K-Dur] 20 meq PO DAILY 02/03/19 02/03/19 Unknown History Torsemide [Demadex] 20 mg PO DAILY 02/03/19 02/03/19 Unknown History Trazodone HCl 150 mg PO HS 02/03/19 02/03/19 Unknown History amLODIPine [Norvasc] 5 mg PO DAILY 02/03/19 02/03/19 Unknown History Active Medications: Generic Name Dose Route Start Last Admin Trade Name Freq PRN Reason Stop Dose Admin Acetaminophen 650 mg 02/03/19 10:03 02/09/19 20:12 Tylenol PO 650 mg Q6H PRN Administration Pain, Mild (1-3) Allopurinol 150 mg 02/03/19 14:00 02/09/19 09:43 Zyloprim PO 150 mg DAILY BENEDICTO Administration Amlodipine Besylate 5 mg 02/03/19 14:00 02/09/19 09:42 Norvasc PO 5 mg DAILY BENEDICTO Administration Aripiprazole 5 mg 02/03/19 14:00 02/09/19 09:43 Abilify PO 5 mg QDAY BENEDICTO Administration Aspirin 325 mg 02/03/19 14:00 02/09/19 09:42 Aspirin PO 325 mg DAILY BENEDICTO Administration Atenolol 50 mg 02/04/19 10:00 02/09/19 09:42 Tenormin PO 50 mg DAILY BENEDICTO Administration Atorvastatin Calcium 40 mg 02/03/19 22:00 02/09/19 21:14 Lipitor PO 40 mg HS BENEDICTO Administration Clonazepam 0.5 mg 02/09/19 22:00 02/09/19 21:14 Klonopin PO 0.5 mg QHS BENEDICTO Administration Clopidogrel Bisulfate 75 mg 02/03/19 14:00 02/09/19 09:41 Plavix PO 75 mg DAILY BENEDICTO Administration Dextrose 50 ml 02/03/19 13:00 D50w (25gm) Syringe IV PRN PRN Hypoglycemia Escitalopram Oxalate 10 mg 02/03/19 12:00 02/09/19 09:42 Lexapro PO 10 mg DAILY BENEDICTO Administration Haloperidol 5 mg 02/02/19 22:53 02/09/19 20:12 Haldol PO 5 mg Q6H PRN Administration Agitation Haloperidol Lactate 5 mg 02/02/19 22:51 02/10/19 08:09 Haldol IM 5 mg Q6H PRN Administration Agitation Insulin Glargine 20 units 02/03/19 22:00 02/09/19 21:35 Lantus SUB-Q 20 units HS BENEDICTO Administration Insulin Human Lispro 0 unit 02/03/19 13:00 02/10/19 08:07 Humalog SUB-Q 2 unit ACHS BENEDICTO Administration Protocol Loratadine 10 mg 02/04/19 10:00 02/09/19 09:43 Claritin PO 10 mg DAILY BENEDICTO Administration Lorazepam 2 mg 02/02/19 22:51 02/07/19 03:43 Ativan IM 2 mg Q6H PRN Administration Agitation Lorazepam 2 mg 02/02/19 22:53 02/09/19 20:12 Ativan PO 2 mg Q6H PRN Administration Agitation Magnesium Oxide 400 mg 02/04/19 10:00 02/09/19 09:42 Mag-Ox PO 400 mg QDAY BENEDICTO Administration Montelukast Sodium 10 mg 02/04/19 10:00 02/09/19 09:42 Singulair PO 10 mg DAILY BENEDICTO Administration Pantoprazole Sodium 40 mg 02/03/19 13:00 02/09/19 09:42 Protonix PO 40 mg QDAY BENEDICTO Administration Polyethylene Glycol 17 gm 02/03/19 13:00 Miralax 3350 PO QDAY PRN Constipation Potassium Chloride 20 meq 02/04/19 10:00 02/09/19 09:42 K-Dur PO 20 meq DAILY BENEDICTO Administration Trazodone HCl 150 mg 02/03/19 22:00 02/09/19 21:14 Desyrel PO 150 mg QHS BENEDICTO Administration
[2019-02-10] MEDS: ZYLOPRIM PO SCH (10:11)
[2019-02-10] MEDS: PLAVIX PO SCH (10:11)
[2019-02-10] MEDS: SINGULAIR PO SCH (10:11)
[2019-02-10] MEDS: LEXAPRO PO SCH (10:11)
[2019-02-10] MEDS: ARIPiprazole PO SCH (10:12)
[2019-02-10] MEDS: CLARITIN PO SCH (10:12)
[2019-02-10] MEDS: K-DUR PO SCH (10:12)
[2019-02-10] MEDS: TENORMIN PO SCH (10:13)
[2019-02-10] MEDS: ASPIRIN PO SCH (10:14)
[2019-02-10] MEDS: NORVASC PO SCH (10:14)
[2019-02-10] MEDS: PROTONIX PO SCH (10:31)
[2019-02-10] MEDS: MAG-OX PO SCH (10:31)
[2019-02-10] MEDS: RisperDAL PO SCH ×2 (10:33→22:03)
[2019-02-10] MEDS: LANTUS SUB-Q SCH (22:00)
[2019-02-10] MEDS: DESYREL PO SCH (22:02)
[2019-02-11] MEDS: HumaLOG SUB-Q SCH ×4 (09:00→21:36)
[2019-02-11] MEDS: K-DUR PO SCH (10:05)
[2019-02-11] MEDS: ASPIRIN PO SCH (10:07)
[2019-02-11] MEDS: TENORMIN PO SCH (10:07)
[2019-02-11] MEDS: ZYLOPRIM PO SCH (10:08)
[2019-02-11] MEDS: PLAVIX PO SCH (10:08)
[2019-02-11] MEDS: MAG-OX PO SCH (10:10)
[2019-02-11] MEDS: SINGULAIR PO SCH (10:10)
[2019-02-11] MEDS: ARIPiprazole PO SCH (10:10)
[2019-02-11] MEDS: NORVASC PO SCH (10:12)
[2019-02-11] MEDS: RisperDAL PO SCH (10:12)
[2019-02-11] MEDS: LEXAPRO PO SCH (10:12)
[2019-02-11] MEDS: PROTONIX PO SCH (10:12)
[2019-02-11] MEDS: CLARITIN PO SCH (10:12)
[2019-02-11] MEDS: LANTUS SUB-Q SCH (21:32)
[2019-02-11] MEDS: DESYREL PO SCH (21:37)
[2019-02-12] MEDS: ATIVAN IM PRN (00:22)
[2019-02-12] MEDS: HALDOL IM PRN (00:24)
[2019-02-12] MEDS: HumaLOG SUB-Q SCH ×5 (09:26→21:44)
[2019-02-12] MEDS: PLAVIX PO SCH (09:48)
[2019-02-12] MEDS: NORVASC PO SCH (09:48)
[2019-02-12] MEDS: ZYLOPRIM PO SCH (09:49)
[2019-02-12] MEDS: MAG-OX PO SCH (09:51)
[2019-02-12] MEDS: TENORMIN PO SCH (09:51)
[2019-02-12] MEDS: CLARITIN PO SCH (09:52)
[2019-02-12] MEDS: ASPIRIN PO SCH (09:52)
[2019-02-12] MEDS: SINGULAIR PO SCH (09:52)
[2019-02-12] MEDS: PROTONIX PO SCH (09:53)
[2019-02-12] MEDS: LEXAPRO PO SCH (09:53)
[2019-02-12] MEDS: K-DUR PO SCH (10:25)
[2019-02-12] MEDS: HALDOL PO PRN (20:57)
[2019-02-12] MEDS: DESYREL PO SCH (21:02)
[2019-02-12] MEDS: LANTUS SUB-Q SCH (21:34)
[2019-02-13] MEDS: HALDOL IM PRN ×3 (00:29→15:34)
[2019-02-13] MEDS: ATIVAN IM PRN ×2 (00:29→15:34)
[2019-02-13] MEDS: HumaLOG SUB-Q SCH ×4 (08:00→22:00)
[2019-02-13] MEDS: ATIVAN PO PRN (09:34)
[2019-02-13] MEDS: MAG-OX PO SCH (10:07)
[2019-02-13] MEDS: K-DUR PO SCH (10:07)
[2019-02-13] MEDS: PROTONIX PO SCH (10:07)
[2019-02-13] MEDS: ASPIRIN PO SCH (10:07)
[2019-02-13] MEDS: PLAVIX PO SCH (10:08)
[2019-02-13] MEDS: SINGULAIR PO SCH (10:08)
[2019-02-13] MEDS: CLARITIN PO SCH (10:08)
[2019-02-13] MEDS: TENORMIN PO SCH (10:08)
[2019-02-13] MEDS: LEXAPRO PO SCH (10:08)
[2019-02-13] MEDS: ZYLOPRIM PO SCH (10:09)
[2019-02-13] MEDS: NORVASC PO SCH (10:09)
[2019-02-13] MEDS: TYLENOL PO PRN (13:29)
--- NOTE | 2019-02-13 16:46 | Progress Note ---
Subjective Date of service: 02/11/19 Principal diagnosis: Severe depression and Anxiety Subjective Comment: The patient continues to be very agitated, restless and distressed by hallucinations. Her sleep is poor. She continues to be irritable, disruptive, anxious and very depressed. No SI/HI She is compliant with medications and denies side effects. MSE Orientation: time, place, person Affect: depressed, anxious Mood: congruent with affect Thought Process: Intact Perceptions: none Speech: normal rate and pattern Concentration: focused Motor activity: normal Level of consciousness: alert Memory: Intact Sleep Symptoms: Insomnia Appetite: decreased Interaction: cooperative Objective - Criteria for Continued Treatment Criteria for Continued Treatment: Improving Level of Functioning, Reducing Isolative Behaviors, Improving Emotional/Socia - Objective Observation Participation Level: Minimal Assessment and Plan - Patient Problems (1) MDD (major depressive disorder), recurrent episode, severe Current Visit: Yes Status: Acute Plan to address problem: Patient will be admitted for inpatient psychiatric evaluation, medication adjustment and close monitoring The patient's behavior, mood, sleep and appetite will be closely monitored. Patient will be enrolled in individual and group therapeutic sessions and encouraged to attend. Patient will be provided with a safe and structured environment. Patient's physical health needs will be addressed by the Hospitalist. Social Assessment will be completed and the Wire Coiner will work with patient and family to ensure a suitable and safe disposition Medication adjustment will be made as clinically indicated Will continue to wean off Clonazepam. The patient agreed on the treatment plan, understood the risk, benefit, alternative treatment, potential consequence of no treatment, and gave informed consent. (2) Anxiety disorder, unspecified Current Visit: Yes Status: Acute Plan to address problem: As above
--- NOTE | 2019-02-13 16:47 | Progress Note ---
Subjective Date of service: 02/12/19 Principal diagnosis: Severe depression and Anxiety Subjective Comment: The patient continues to be very agitated, restless and distressed by hallucinations. Her sleep is poor. She continues to be irritable, disruptive, anxious and very depressed. No SI/HI She is compliant with medications and denies side effects. MSE Orientation: time, place, person Affect: depressed, anxious Mood: congruent with affect Thought Process: Intact Perceptions: none Speech: normal rate and pattern Concentration: focused Motor activity: normal Level of consciousness: alert Memory: Intact Sleep Symptoms: Insomnia Appetite: decreased Interaction: cooperative Objective - Criteria for Continued Treatment Criteria for Continued Treatment: Improving Level of Functioning, Stablizing Level of Functioning, Improving Emotional/Socia - Objective Observation Participation Level: Minimal Assessment and Plan - Patient Problems (1) MDD (major depressive disorder), recurrent episode, severe Current Visit: Yes Status: Acute Plan to address problem: Patient will be admitted for inpatient psychiatric evaluation, medication adjustment and close monitoring The patient's behavior, mood, sleep and appetite will be closely monitored. Patient will be enrolled in individual and group therapeutic sessions and encouraged to attend. Patient will be provided with a safe and structured environment. Patient's physical health needs will be addressed by the Hospitalist. Social Assessment will be completed and the Switch Inspector will work with patient and family to ensure a suitable and safe disposition Medication adjustment will be made as clinically indicated Will increase Clonazepam. The patient agreed on the treatment plan, understood the risk, benefit, alternative treatment, potential consequence of no treatment, and gave informed consent. (2) Anxiety disorder, unspecified Current Visit: Yes Status: Acute Plan to address problem: As above
--- NOTE | 2019-02-13 16:50 | Progress Note ---
Subjective Date of service: 02/13/19 Principal diagnosis: Severe depression and Anxiety Subjective Comment: The patient continues to be very agitated, restless and distressed by hallucinations. Her sleep is poor. She continues to be irritable, disruptive, anxious and very depressed. No SI/HI She is compliant with medications and denies side effects. MSE Orientation: time, place, person Affect: depressed, anxious Mood: congruent with affect Thought Process: Intact Perceptions: none Speech: normal rate and pattern Concentration: focused Motor activity: normal Level of consciousness: alert Memory: Intact Sleep Symptoms: Insomnia Appetite: decreased Interaction: cooperative Objective - Criteria for Continued Treatment Criteria for Continued Treatment: Improving Level of Functioning, Stablizing Level of Functioning, Improving Emotional/Socia - Objective Observation Participation Level: Minimal Assessment and Plan - Patient Problems (1) MDD (major depressive disorder), recurrent episode, severe Current Visit: Yes Status: Acute Plan to address problem: Patient will be admitted for inpatient psychiatric evaluation, medication adjustment and close monitoring The patient's behavior, mood, sleep and appetite will be closely monitored. Patient will be enrolled in individual and group therapeutic sessions and encouraged to attend. Patient will be provided with a safe and structured environment. Patient's physical health needs will be addressed by the Hospitalist. Social Assessment will be completed and the Sorter [employer] will work with patient and family to ensure a suitable and safe disposition Medication adjustment will be made as clinically indicated (2) Anxiety disorder, unspecified Current Visit: Yes Status: Acute Medications & Allergies - Medications Allergies/Adverse Reactions: Allergies codeine Adverse Reaction (Verified 02/03/19 03:04) Unknown morphine Adverse Reaction (Verified 02/03/19 03:04) Unknown Penicillins Adverse Reaction (Verified 02/03/19 03:04) Unknown Home Medications: Home Medications Medication Instructions Recorded Confirmed Last Taken Type Hydrocodone-Acetamin 5-300 mg 5 - 325 mg PO BID PRN 02/02/19 02/02/19 Unknown History Insulin NPH Human Isophane 10 units SUB-Q TID 02/02/19 02/02/19 Unknown History [Humulin N] ALPRAZolam [Xanax TAB] 0.5 mg PO BID 02/03/19 02/03/19 Unknown History ARIPiprazole [Abilify TAB] 2 mg PO DAILY 02/03/19 02/03/19 Unknown History Allopurinol [Zyloprim] 300 mg PO DAILY 02/03/19 02/03/19 Unknown History Aspirin 325 mg PO DAILY 02/03/19 02/03/19 Unknown History Atenolol [Tenormin] 50 mg PO DAILY 02/03/19 02/03/19 Unknown History AtorvaSTATin [Lipitor] 40 mg PO HS 02/03/19 02/03/19 Unknown History Clopidogrel [Plavix] 75 mg PO DAILY 02/03/19 02/03/19 Unknown History Escitalopram [Lexapro] 10 mg PO DAILY 02/03/19 02/03/19 Unknown History Fexofenadine HCl 180 mg PO DAILY 02/03/19 02/03/19 Unknown History Insulin Glargine [Lantus VIAL] 30 units SUB-Q HS 02/03/19 02/03/19 Unknown History Insulin Regular, Human [Humulin R] 10 units SUB-Q TID 02/03/19 02/03/19 Unknown History Magnesium Oxide 400 400 mg PO DAILY 02/03/19 02/03/19 Unknown History Montelukast Sodium 10 mg PO DAILY 02/03/19 02/03/19 Unknown History Potassium Chloride [K-Dur] 20 meq PO DAILY 02/03/19 02/03/19 Unknown History Torsemide [Demadex] 20 mg PO DAILY 02/03/19 02/03/19 Unknown History Trazodone HCl 150 mg PO HS 02/03/19 02/03/19 Unknown History amLODIPine [Norvasc] 5 mg PO DAILY 02/03/19 02/03/19 Unknown History Active Medications: Generic Name Dose Route Start Last Admin Trade Name Freq PRN Reason Stop Dose Admin Acetaminophen 650 mg 02/03/19 10:03 02/13/19 13:29 Tylenol PO 650 mg Q6H PRN Administration Pain, Mild (1-3) Allopurinol 150 mg 02/03/19 14:00 02/13/19 10:09 Zyloprim PO 150 mg DAILY BENEDICTO Administration Amlodipine Besylate 5 mg 02/03/19 14:00 02/13/19 10:09 Norvasc PO 5 mg DAILY BENEDICTO Administration Aspirin 325 mg 02/03/19 14:00 02/13/19 10:07 Aspirin PO 325 mg DAILY BENEDICTO Administration Atenolol 50 mg 02/04/19 10:00 02/13/19 10:08 Tenormin PO 50 mg DAILY BENEDICTO Administration Atorvastatin Calcium 40 mg 02/03/19 22:00 02/12/19 21:02 Lipitor PO 40 mg HS BENEDICTO Administration Clonazepam 0.5 mg 02/09/19 22:00 02/12/19 21:03 Klonopin PO 0.5 mg QHS BEENDICTO Administration Clopidogrel Bisulfate 75 mg 02/03/19 14:00 02/13/19 10:08 Plavix PO 75 mg DAILY BENEDICTO Administration Dextrose 50 ml 02/03/19 13:00 D50w (25gm) Syringe IV PRN PRN Hypoglycemia Divalproex Sodium 500 mg 02/11/19 22:00 02/12/19 21:02 Depakote Er PO 500 mg HS BENEDICTO Administration Escitalopram Oxalate 10 mg 02/03/19 12:00 02/13/19 10:08 Lexapro PO 10 mg DAILY BENEDICTO Administration Haloperidol 5 mg 02/02/19 22:53 02/12/19 20:57 Haldol PO 5 mg Q6H PRN Administration Agitation Haloperidol Lactate 5 mg 02/02/19 22:51 02/13/19 15:34 Haldol IM 5 mg Q6H PRN Administration Agitation Insulin Glargine 20 units 02/03/19 22:00 02/12/19 21:34 Lantus SUB-Q 20 units HS BENEDICTO Administration Insulin Human Lispro 0 unit 02/03/19 13:00 02/13/19 12:21 Humalog SUB-Q 2 unit ACHS BENEDICTO Administration Protocol Loratadine 10 mg 02/04/19 10:00 02/13/19 10:08 Claritin PO 10 mg DAILY BENEDICTO Administration Lorazepam 2 mg 02/02/19 22:51 02/13/19 15:34 Ativan IM 2 mg Q6H PRN Administration Agitation Lorazepam 2 mg 02/02/19 22:53 02/13/19 09:34 Ativan PO 2 mg Q6H PRN Administration Agitation Magnesium Oxide 400 mg 02/04/19 10:00 02/13/19 10:07 Mag-Ox PO 400 mg QDAY BENEDICTO Administration Montelukast Sodium 10 mg 02/04/19 10:00 02/13/19 10:08 Singulair PO 10 mg DAILY BENEDICTO Administration Pantoprazole Sodium 40 mg 02/03/19 13:00 02/13/19 10:07 Protonix PO 40 mg QDAY BENEDICTO Administration Polyethylene Glycol 17 gm 02/03/19 13:00 Miralax 3350 PO QDAY PRN Constipation Potassium Chloride 20 meq 02/04/19 10:00 02/13/19 10:07 K-Dur PO 20 meq DAILY BENEDICTO Administration Quetiapine Fumarate 100 mg 02/11/19 22:00 02/12/19 21:03 Seroquel PO 100 mg QHS BENEDICTO Administration Trazodone HCl 150 mg 02/03/19 22:00 02/12/19 21:02 Desyrel PO 150 mg QHS BENEDICTO Administration
[2019-02-13] MEDS: RisperDAL PO SCH (17:55)
[2019-02-13] MEDS: MELATONIN PO SCH (17:56)
[2019-02-13] MEDS: DESYREL PO SCH (21:11)
[2019-02-13] MEDS: HALDOL PO PRN (21:12)
[2019-02-13] MEDS: LANTUS SUB-Q SCH (21:24)
[2019-02-14] MEDS: ATIVAN IM PRN (02:04)
[2019-02-14] MEDS: HALDOL IM PRN ×2 (04:47→13:55)
--- NOTE | 2019-02-14 09:08 | Progress Note ---
Subjective Date of service: 02/14/19 Principal diagnosis: Severe depression and Anxiety Subjective Comment: The patient continues to be very agitated, restless and distressed by hallucinations. Her sleep is poor. She continues to be irritable, disruptive, anxious and very depressed. No SI/HI She is compliant with medications and denies side effects. Last night's Nursing Report: @ 05:54: Pt was still agitated Haldol 5mg Im given as ordered @ 0430 and medication was effective. Pt asleep no s/s distress noted. Pt was compliant with her routine meds. @ 02:10: Pt awake restless shouting and hallucinating calling for and talking to people that are not there. Pt is oriented to reality but continues to shout. Ativan 2mg Im given for agitation. @ 19:04 Pt observed in the dayroom yelling "help me" with eyes closed but has no visible sign of distress and denies any pain. She is confused and a/o to self only. She appears neat and appropriately dressed, sitting in the jose chair with wheels locked and in place. MSE Orientation: time, place, person Affect: depressed, anxious Mood: congruent with affect Thought Process: Intact Perceptions: none Speech: normal rate and pattern Concentration: focused Motor activity: normal Level of consciousness: alert Memory: Intact Sleep Symptoms: Insomnia Appetite: decreased Interaction: cooperative Objective - Criteria for Continued Treatment Criteria for Continued Treatment: Improving Level of Functioning, Stablizing Level of Functioning, Improving Emotional/Socia - Objective Observation Participation Level: Minimal Reason(s) For Not Participating: Unable Assessment and Plan - Patient Problems (1) MDD (major depressive disorder), recurrent episode, severe Current Visit: Yes Status: Acute Plan to address problem: Patient will be admitted for inpatient psychiatric evaluation, medication adjustment and close monitoring The patient's behavior, mood, sleep and appetite will be closely monitored. Patient will be enrolled in individual and group therapeutic sessions and encouraged to attend. Patient will be provided with a safe and structured environment. Patient's physical health needs will be addressed by the Hospitalist. Social Assessment will be completed and the Farmworker [employer] will work with patient and family to ensure a suitable and safe disposition Medication adjustment will be made as clinically indicated (2) Anxiety disorder, unspecified Current Visit: Yes Status: Acute Plan to address problem: As above Medications & Allergies - Medications Allergies/Adverse Reactions: Allergies codeine Adverse Reaction (Verified 02/03/19 03:04) Unknown morphine Adverse Reaction (Verified 02/03/19 03:04) Unknown Penicillins Adverse Reaction (Verified 02/03/19 03:04) Unknown Home Medications: Home Medications Medication Instructions Recorded Confirmed Last Taken Type Hydrocodone-Acetamin 5-300 mg 5 - 325 mg PO BID PRN 02/02/19 02/02/19 Unknown History Insulin NPH Human Isophane 10 units SUB-Q TID 02/02/19 02/02/19 Unknown History [Humulin N] ALPRAZolam [Xanax TAB] 0.5 mg PO BID 02/03/19 02/03/19 Unknown History ARIPiprazole [Abilify TAB] 2 mg PO DAILY 02/03/19 02/03/19 Unknown History Allopurinol [Zyloprim] 300 mg PO DAILY 02/03/19 02/03/19 Unknown History Aspirin 325 mg PO DAILY 02/03/19 02/03/19 Unknown History Atenolol [Tenormin] 50 mg PO DAILY 02/03/19 02/03/19 Unknown History AtorvaSTATin [Lipitor] 40 mg PO HS 02/03/19 02/03/19 Unknown History Clopidogrel [Plavix] 75 mg PO DAILY 02/03/19 02/03/19 Unknown History Escitalopram [Lexapro] 10 mg PO DAILY 02/03/19 02/03/19 Unknown History Fexofenadine HCl 180 mg PO DAILY 02/03/19 02/03/19 Unknown History Insulin Glargine [Lantus VIAL] 30 units SUB-Q HS 02/03/19 02/03/19 Unknown History Insulin Regular, Human [Humulin R] 10 units SUB-Q TID 02/03/19 02/03/19 Unknown History Magnesium Oxide 400 400 mg PO DAILY 02/03/19 02/03/19 Unknown History Montelukast Sodium 10 mg PO DAILY 02/03/19 02/03/19 Unknown History Potassium Chloride [K-Dur] 20 meq PO DAILY 02/03/19 02/03/19 Unknown History Torsemide [Demadex] 20 mg PO DAILY 02/03/19 02/03/19 Unknown History Trazodone HCl 150 mg PO HS 02/03/19 02/03/19 Unknown History amLODIPine [Norvasc] 5 mg PO DAILY 02/03/19 02/03/19 Unknown History Active Medications: Generic Name Dose Route Start Last Admin Trade Name Freq PRN Reason Stop Dose Admin Acetaminophen 650 mg 02/03/19 10:03 02/13/19 13:29 Tylenol PO 650 mg Q6H PRN Administration Pain, Mild (1-3) Allopurinol 150 mg 02/03/19 14:00 02/13/19 10:09 Zyloprim PO 150 mg DAILY BENEDICTO Administration Amlodipine Besylate 5 mg 02/03/19 14:00 02/13/19 10:09 Norvasc PO 5 mg DAILY BENEDICTO Administration Aspirin 325 mg 02/03/19 14:00 02/13/19 10:07 Aspirin PO 325 mg DAILY BENEDICTO Administration Atenolol 50 mg 02/04/19 10:00 02/13/19 10:08 Tenormin PO 50 mg DAILY BENEDICTO Administration Atorvastatin Calcium 40 mg 02/03/19 22:00 02/13/19 21:12 Lipitor PO 40 mg HS BENEDICTO Administration Clonazepam 0.5 mg 02/09/19 22:00 02/13/19 21:12 Klonopin PO 0.5 mg QHS BENEDICTO Administration Clopidogrel Bisulfate 75 mg 02/03/19 14:00 02/13/19 10:08 Plavix PO 75 mg DAILY BENEDICTO Administration Dextrose 50 ml 02/03/19 13:00 D50w (25gm) Syringe IV PRN PRN Hypoglycemia Divalproex Sodium 250 mg 02/13/19 18:00 02/13/19 17:47 Depakote Er PO 250 mg QPM BENEDICTO Administration Divalproex Sodium 500 mg 02/13/19 18:00 02/13/19 17:48 Depakote Er PO 500 mg QPM BENEDICTO Administration Haloperidol 5 mg 02/02/19 22:53 02/13/19 21:12 Haldol PO 5 mg Q6H PRN Administration Agitation Haloperidol Lactate 5 mg 02/02/19 22:51 02/14/19 04:47 Haldol IM 5 mg Q6H PRN Administration Agitation Insulin Glargine 20 units 02/03/19 22:00 02/13/19 21:24 Lantus SUB-Q 20 units HS BENEDICTO Administration Insulin Human Lispro 0 unit 02/03/19 13:00 02/13/19 22:00 Humalog SUB-Q 2 unit ACHS BENEDICTO Administration Protocol Loratadine 10 mg 02/04/19 10:00 02/13/19 10:08 Claritin PO 10 mg DAILY BENEDICTO Administration Lorazepam 2 mg 02/02/19 22:51 02/14/19 02:04 Ativan IM 2 mg Q6H PRN Administration Agitation Lorazepam 2 mg 02/02/19 22:53 02/13/19 09:34 Ativan PO 2 mg Q6H PRN Administration Agitation Magnesium Oxide 400 mg 02/04/19 10:00 02/13/19 10:07 Mag-Ox PO 400 mg QDAY BENEDICTO Administration Melatonin 10 mg 02/13/19 18:00 02/13/19 17:56 Melatonin PO 10 mg QPM BENEDICTO Administration Montelukast Sodium 10 mg 02/04/19 10:00 02/13/19 10:08 Singulair PO 10 mg DAILY BENEDICTO Administration Pantoprazole Sodium 40 mg 02/03/19 13:00 02/13/19 10:07 Protonix PO 40 mg QDAY BENEDICTO Administration Polyethylene Glycol 17 gm 02/03/19 13:00 Miralax 3350 PO QDAY PRN Constipation Potassium Chloride 20 meq 02/04/19 10:00 02/13/19 10:07 K-Dur PO 20 meq DAILY BENEDICTO Administration Risperidone 2 mg 02/13/19 18:00 02/13/19 17:55 Risperdal PO 2 mg QPM BENEDICTO Administration Trazodone HCl 150 mg 02/03/19 22:00 02/13/19 21:11 Desyrel PO 150 mg QHS BENEDICTO Administration
[2019-02-14] MEDS: K-DUR PO SCH (10:05)
[2019-02-14] MEDS: CLARITIN PO SCH (10:05)
[2019-02-14] MEDS: SINGULAIR PO SCH (10:05)
[2019-02-14] MEDS: ASPIRIN PO SCH (11:27)
[2019-02-14] MEDS: PLAVIX PO SCH (11:28)
[2019-02-14] MEDS: XANAX PO SCH ×2 (11:33→21:02)
[2019-02-14] MEDS: TENORMIN PO SCH (11:33)
[2019-02-14] MEDS: NORVASC PO SCH (11:35)
[2019-02-14] MEDS: ZYLOPRIM PO SCH (11:37)
[2019-02-14] MEDS: HumaLOG SUB-Q SCH ×4 (11:40→21:03)
[2019-02-14] MEDS: MAG-OX PO SCH (13:45)
[2019-02-14] MEDS: PROTONIX PO SCH (13:46)
[2019-02-14] MEDS: RisperDAL PO SCH (19:56)
[2019-02-14] MEDS: MELATONIN PO SCH (19:58)
[2019-02-14] MEDS: DESYREL PO SCH (21:03)
[2019-02-14] MEDS: LANTUS SUB-Q SCH (21:07)
[2019-02-15] MEDS: XANAX PO SCH ×3 (05:44→18:20)
--- NOTE | 2019-02-15 07:59 | Progress Note ---
Subjective Date of service: 02/15/19 Principal diagnosis: Severe depression and Anxiety Subjective Comment: The patient is requiring 1:1 close monitoring. She is agitated, restless and distressed by hallucinations. Her sleep is poor. She continues to be irritable, disruptive, anxious and very depressed. No SI/HI She is compliant with medications and denies side effects. Last night's Nursing Report: Pt yelling "daddy come get me." Pt alert and oriented x 1. Pt needs constant redirection and reorientation. Pt attempting to disrobe in the day room. Pt observed with eyes closed no distress noted. Pt is 1:1 observation with sitter for safety. MSE Orientation: time, place, person Affect: depressed, anxious Mood: congruent with affect Thought Process: Intact Perceptions: none Speech: normal rate and pattern Concentration: focused Motor activity: normal Level of consciousness: alert Memory: Intact Sleep Symptoms: Insomnia Appetite: decreased Interaction: cooperative Objective - Criteria for Continued Treatment Criteria for Continued Treatment: Improving Level of Functioning, Stablizing Level of Functioning, Improving Emotional/Socia - Objective Observation Participation Level: Minimal Reason(s) For Not Participating: Unable Assessment and Plan - Patient Problems (1) MDD (major depressive disorder), recurrent episode, severe Current Visit: Yes Status: Acute Plan to address problem: Patient will be admitted for inpatient psychiatric evaluation, medication adjustment and close monitoring The patient's behavior, mood, sleep and appetite will be closely monitored. Patient will be enrolled in individual and group therapeutic sessions and encouraged to attend. Patient will be provided with a safe and structured environment. Patient's physical health needs will be addressed by the Hospitalist. Social Assessment will be completed and the Stereotyper Helper will work with patient and family to ensure a suitable and safe disposition Medication adjustment will be made as clinically indicated Alprazolam (Xanax) 0.5 mg PO Q8H was added yesterday (2) Anxiety disorder, unspecified Current Visit: Yes Status: Acute Plan to address problem: As above Medications and Allergies Allergies Allergy/AdvReac Type Severity Reaction Status Date / Time codeine AdvReac Unknown Verified 02/03/19 03:04 morphine AdvReac Unknown Verified 02/03/19 03:04 Penicillins AdvReac Unknown Verified 02/03/19 03:04 Home Medications Medication Instructions Recorded Confirmed Last Taken Type Hydrocodone-Acetamin 5-300 mg 5 - 325 mg PO BID PRN 02/02/19 02/02/19 Unknown History Insulin NPH Human Isophane 10 units SUB-Q TID 02/02/19 02/02/19 Unknown History [Humulin N] ALPRAZolam [Xanax TAB] 0.5 mg PO BID 02/03/19 02/03/19 Unknown History ARIPiprazole [Abilify TAB] 2 mg PO DAILY 02/03/19 02/03/19 Unknown History Allopurinol [Zyloprim] 300 mg PO DAILY 02/03/19 02/03/19 Unknown History Aspirin 325 mg PO DAILY 02/03/19 02/03/19 Unknown History Atenolol [Tenormin] 50 mg PO DAILY 02/03/19 02/03/19 Unknown History AtorvaSTATin [Lipitor] 40 mg PO HS 02/03/19 02/03/19 Unknown History Clopidogrel [Plavix] 75 mg PO DAILY 02/03/19 02/03/19 Unknown History Escitalopram [Lexapro] 10 mg PO DAILY 02/03/19 02/03/19 Unknown History Fexofenadine HCl 180 mg PO DAILY 02/03/19 02/03/19 Unknown History Insulin Glargine [Lantus VIAL] 30 units SUB-Q HS 02/03/19 02/03/19 Unknown History Insulin Regular, Human [Humulin R] 10 units SUB-Q TID 02/03/19 02/03/19 Unknown History Magnesium Oxide 400 400 mg PO DAILY 02/03/19 02/03/19 Unknown History Montelukast Sodium 10 mg PO DAILY 02/03/19 02/03/19 Unknown History Potassium Chloride [K-Dur] 20 meq PO DAILY 02/03/19 02/03/19 Unknown History Torsemide [Demadex] 20 mg PO DAILY 02/03/19 02/03/19 Unknown History Trazodone HCl 150 mg PO HS 02/03/19 02/03/19 Unknown History amLODIPine [Norvasc] 5 mg PO DAILY 02/03/19 02/03/19 Unknown History Active Meds: Active Medications Acetaminophen (Tylenol) 650 mg PO Q6H PRN PRN Reason: Pain, Mild (1-3) Last Admin: 02/13/19 13:29 Dose: 650 mg Documented by: Allopurinol (Zyloprim) 150 mg PO DAILY [facility] Last Admin: 02/14/19 11:37 Dose: 150 mg Documented by: Alprazolam (Xanax) 0.5 mg PO Q8H [facility] Last Admin: 02/15/19 05:44 Dose: Not Given Documented by: Amlodipine Besylate (Norvasc) 5 mg PO DAILY [facility] Last Admin: 02/14/19 11:35 Dose: 5 mg Documented by: Aspirin (Aspirin) 325 mg PO DAILY [facility] Last Admin: 02/14/19 11:27 Dose: 325 mg Documented by: Atenolol (Tenormin) 50 mg PO DAILY [facility] Last Admin: 02/14/19 11:33 Dose: 50 mg Documented by: Atorvastatin Calcium (Lipitor) 40 mg PO HS [facility] Last Admin: 02/14/19 21:02 Dose: 40 mg Documented by: Clopidogrel Bisulfate (Plavix) 75 mg PO DAILY [facility] Last Admin: 02/14/19 11:28 Dose: 75 mg Documented by: Dextrose (D50w (25gm) Syringe) 50 ml IV PRN PRN PRN Reason: Hypoglycemia Divalproex Sodium (Depakote Er) 250 mg PO QPM [facility] Last Admin: 02/14/19 19:56 Dose: 250 mg Documented by: Divalproex Sodium (Depakote Er) 500 mg PO QPM [facility] Last Admin: 02/14/19 19:55 Dose: 500 mg Documented by: Haloperidol (Haldol) 5 mg PO Q6H PRN PRN Reason: Agitation Last Admin: 02/13/19 21:12 Dose: 5 mg Documented by: Haloperidol Lactate (Haldol) 5 mg IM Q6H PRN PRN Reason: Agitation Last Admin: 02/14/19 13:55 Dose: 5 mg Documented by: Insulin Glargine (Lantus) 20 units SUB-Q [facility] Last Admin: 02/14/19 21:07 Dose: 20 units Documented by: Insulin Human Lispro (Humalog) 0 unit SUB-Q [facility]; Protocol Last Admin: 02/14/19 21:03 Dose: 2 unit Documented by: Loratadine (Claritin) 10 mg PO DAILY [facility] Last Admin: 02/14/19 10:05 Dose: 10 mg Documented by: Lorazepam (Ativan) 2 mg IM Q6H PRN PRN Reason: Agitation Last Admin: 02/14/19 02:04 Dose: 2 mg Documented by: Lorazepam (Ativan) 2 mg PO Q6H PRN PRN Reason: Agitation Last Admin: 02/13/19 09:34 Dose: 2 mg Documented by: Magnesium Oxide (Mag-Ox) 400 mg PO QDAY [facility] Last Admin: 02/14/19 13:45 Dose: 400 mg Documented by: Melatonin (Melatonin) 10 mg PO QPM [facility] Last Admin: 02/14/19 19:58 Dose: 10 mg Documented by: Montelukast Sodium (Singulair) 10 mg PO DAILY [facility] Last Admin: 02/14/19 10:05 Dose: 10 mg Documented by: Pantoprazole Sodium (Protonix) 40 mg PO QDAY [facility] Last Admin: 02/14/19 13:46 Dose: 40 mg Documented by: Polyethylene Glycol (Miralax 3350) 17 gm PO QDAY PRN PRN Reason: Constipation Potassium Chloride (K-Dur) 20 meq PO DAILY [facility] Last Admin: 02/14/19 10:05 Dose: 20 meq Documented by: Risperidone (Risperdal) 2 mg PO QPM [facility] Last Admin: 02/14/19 19:56 Dose: 2 mg Documented by: Trazodone HCl (Desyrel) 150 mg PO QHS [facility] Last Admin: 02/14/19 21:03 Dose: 150 mg Documented by: Results - Results Labs/Vitals: Laboratory Last Values WBC 7.6 K/mm3 (4.5-11.0) 02/04/19 06:44 RBC 4.40 M/mm3 (3.65-5.03) 02/04/19 06:44 Hgb 13.4 gm/dl (10.1-14.3) 02/04/19 06:44 Hct 39.1 % (30.3-42.9) 02/04/19 06:44 MCV 89 fl (79-97) 02/04/19 06:44 MCH 31 pg (28-32) 02/04/19 06:44 MCHC 34 % (30-34) 02/04/19 06:44 RDW 14.7 % (13.2-15.2) 02/04/19 06:44 Plt Count 197 K/mm3 (140-440) 02/04/19 06:44 Lymph % (Auto) 17.8 % (13.4-35.0) 02/03/19 11:18 [place] % (Auto) 8.3 % (0.0-7.3) H 02/03/19 11:18 Eos % (Auto) 4.8 % (0.0-4.3) H 02/03/19 11:18 Baso % (Auto) 0.6 % (0.0-1.8) 02/03/19 11:18 Lymph # 1.8 K/mm3 (1.2-5.4) 02/03/19 11:18 [place] # 0.8 K/mm3 (0.0-0.8) 02/03/19 11:18 Eos # 0.5 K/mm3 (0.0-0.4) H 02/03/19 11:18 Baso # 0.1 K/mm3 (0.0-0.1) 02/03/19 11:18 Seg Neutrophils % 68.5 % (40.0-70.0) 02/03/19 11:18 Seg Neutrophils # 6.9 K/mm3 (1.8-7.7) 02/03/19 11:18 Sodium 141 mmol/L (137-145) 02/04/19 06:44 Potassium 3.2 mmol/L (3.6-5.0) L 02/04/19 06:44 Chloride 103.1 mmol/L (98-107) 02/04/19 06:44 Carbon Dioxide 23 mmol/L (22-30) 02/04/19 06:44 Anion Gap 18 mmol/L 02/04/19 06:44 BUN 20 mg/dL (7-17) H 02/04/19 06:44 Creatinine 1.5 mg/dL (0.7-1.2) H 02/04/19 06:44 Estimated GFR 34 ml/min 02/04/19 06:44 BUN/Creatinine Ratio 13 % 02/04/19 06:44 Glucose 244 mg/dL (65-100) H 02/04/19 06:44 POC Glucose 93 (70-105) 02/15/19 06:43 Hemoglobin A1c 9.1 % (4-6) H 02/03/19 11:18 Calcium 8.8 mg/dL (8.4-10.2) 02/04/19 06:44 Total Bilirubin 0.90 mg/dL (0.1-1.2) 02/03/19 11:18 AST 32 units/L (5-40) 02/03/19 11:18 ALT 25 units/L (7-56) 02/03/19 11:18 Alkaline Phosphatase 88 units/L (35-129) 02/03/19 11:18 Total Protein 6.7 g/dL (6.3-8.2) 02/03/19 11:18 Albumin 3.0 g/dL (3.9-5) L 02/03/19 11:18 Albumin/Globulin Ratio 0.8 % 02/03/19 11:18 Triglycerides 315 mg/dL (2-149) H 02/03/19 11:18 Cholesterol 190 mg/dL (50-199) 02/03/19 11:18 LDL Cholesterol Direct 116 mg/dL (50-130) 02/03/19 11:18 HDL Cholesterol 33 mg/dL (40-59) L 02/03/19 11:18 Cholesterol/HDL Ratio 5.75 % 02/03/19 11:18 Urine Color Yellow (Yellow) 02/03/19 15:09 Urine Turbidity Clear (Clear) 02/03/19 15:09 Urine pH 6.0 (5.0-7.0) 02/03/19 15:09 Ur Specific [place] 1.017 (1.003-1.030) 02/03/19 15:09 Urine Protein >500 mg/dL (Negative) 02/03/19 15:09 Urine Glucose (UA) >=500 mg/dL (Negative) 02/03/19 15:09 Urine Ketones Tr mg/dL (Negative) 02/03/19 15:09 Urine Blood Mod (Negative) 02/03/19 15:09 Urine Nitrite Neg (Negative) 02/03/19 15:09 Urine Bilirubin Neg (Negative) 02/03/19 15:09 Urine Urobilinogen < 2.0 mg/dL (<2.0) 02/03/19 15:09 Ur Leukocyte Esterase Neg (Negative) 02/03/19 15:09 Urine WBC (Auto) 1.0 /HPF (0.0-6.0) 02/03/19 15:09 Urine RBC (Auto) 1.0 /HPF (0.0-6.0) 02/03/19 15:09 U Epithel Cells (Auto) 1.0 /HPF (0-13.0) 02/03/19 15:09 Hyaline Casts 2 /LPF 02/03/19 15:09 Urine Mucus Few /HPF 02/03/19 15:09 Last Vital Signs Temp 97.9 F 02/14/19 20:48 Pulse 70 02/14/19 20:48 Resp 18 02/14/19 20:48 BP 170/68 02/14/19 20:48 Pulse Ox 95 02/14/19 20:48
[2019-02-15] MEDS: HumaLOG SUB-Q SCH ×4 (10:10→23:51)
[2019-02-15] MEDS: NORVASC PO SCH (11:51)
[2019-02-15] MEDS: K-DUR PO SCH (11:52)
[2019-02-15] MEDS: ASPIRIN PO SCH (11:52)
[2019-02-15] MEDS: MAG-OX PO SCH (11:52)
[2019-02-15] MEDS: PROTONIX PO SCH (11:52)
[2019-02-15] MEDS: PLAVIX PO SCH (11:53)
[2019-02-15] MEDS: TENORMIN PO SCH (11:53)
[2019-02-15] MEDS: SINGULAIR PO SCH (11:53)
[2019-02-15] MEDS: CLARITIN PO SCH (11:53)
[2019-02-15] MEDS: ZYLOPRIM PO SCH (11:54)
[2019-02-15 18:11] LABS: Bilirubin,Urine NEG (Negative); Blood,Urine SM (Negative); Color,Urine Yellow (Yellow); Urobilinogen,Urine < 2.0 mg/dL (<2.0)
[2019-02-15] MEDS: MELATONIN PO SCH (18:17)
[2019-02-15] MEDS: RisperDAL PO SCH (18:17)
[2019-02-15] MEDS: DESYREL PO SCH (21:43)
[2019-02-15] MEDS: LANTUS SUB-Q SCH (23:39)
[2019-02-16] MEDS: XANAX PO SCH ×4 (06:11→21:14)
[2019-02-16] MEDS: HumaLOG SUB-Q SCH ×4 (08:15→21:25)
--- NOTE | 2019-02-16 09:00 | Progress Note ---
Subjective Date of service: 02/16/19 Principal diagnosis: Severe depression and Anxiety Subjective Comment: The patient slept through the night. She continues to require 1:1 She is restless No SI/HI. She is compliant with medications and denies side effects. MSE Orientation: time, place, person Affect: depressed, anxious Mood: congruent with affect Thought Process: Intact Perceptions: none Speech: normal rate and pattern Concentration: focused Motor activity: normal Level of consciousness: alert Memory: Intact Sleep Symptoms: Insomnia Appetite: decreased Interaction: cooperative Objective - Criteria for Continued Treatment Criteria for Continued Treatment: Improving Level of Functioning, Stablizing Level of Functioning, Improving Emotional/Socia - Objective Observation Participation Level: Minimal Assessment and Plan - Patient Problems (1) MDD (major depressive disorder), recurrent episode, severe Current Visit: Yes Status: Acute Plan to address problem: Patient will be admitted for inpatient psychiatric evaluation, medication adjustment and close monitoring The patient's behavior, mood, sleep and appetite will be closely monitored. Patient will be enrolled in individual and group therapeutic sessions and encouraged to attend. Patient will be provided with a safe and structured environment. Patient's physical health needs will be addressed by the Hospitalist. Social Assessment will be completed and the Fitness Assistant will work with patient and family to ensure a suitable and safe disposition Medication adjustment will be made as clinically indicated Alprazolam (Xanax) 0.5 mg PO Q8H was added yesterday (2) Anxiety disorder, unspecified Current Visit: Yes Status: Acute Medications and Allergies Allergies Allergy/AdvReac Type Severity Reaction Status Date / Time codeine AdvReac Unknown Verified 02/03/19 03:04 morphine AdvReac Unknown Verified 02/03/19 03:04 Penicillins AdvReac Unknown Verified 02/03/19 03:04 Home Medications Medication Instructions Recorded Confirmed Last Taken Type Hydrocodone-Acetamin 5-300 mg 5 - 325 mg PO BID PRN 02/02/19 02/02/19 Unknown History Insulin NPH Human Isophane 10 units SUB-Q TID 02/02/19 02/02/19 Unknown History [Humulin N] ALPRAZolam [Xanax TAB] 0.5 mg PO BID 02/03/19 02/03/19 Unknown History ARIPiprazole [Abilify TAB] 2 mg PO DAILY 02/03/19 02/03/19 Unknown History Allopurinol [Zyloprim] 300 mg PO DAILY 02/03/19 02/03/19 Unknown History Aspirin 325 mg PO DAILY 02/03/19 02/03/19 Unknown History Atenolol [Tenormin] 50 mg PO DAILY 02/03/19 02/03/19 Unknown History AtorvaSTATin [Lipitor] 40 mg PO HS 02/03/19 02/03/19 Unknown History Clopidogrel [Plavix] 75 mg PO DAILY 02/03/19 02/03/19 Unknown History Escitalopram [Lexapro] 10 mg PO DAILY 02/03/19 02/03/19 Unknown History Fexofenadine HCl 180 mg PO DAILY 02/03/19 02/03/19 Unknown History Insulin Glargine [Lantus VIAL] 30 units SUB-Q HS 02/03/19 02/03/19 Unknown History Insulin Regular, Human [Humulin R] 10 units SUB-Q TID 02/03/19 02/03/19 Unknown History Magnesium Oxide 400 400 mg PO DAILY 02/03/19 02/03/19 Unknown History Montelukast Sodium 10 mg PO DAILY 02/03/19 02/03/19 Unknown History Potassium Chloride [K-Dur] 20 meq PO DAILY 02/03/19 02/03/19 Unknown History Torsemide [Demadex] 20 mg PO DAILY 02/03/19 02/03/19 Unknown History Trazodone HCl 150 mg PO HS 02/03/19 02/03/19 Unknown History amLODIPine [Norvasc] 5 mg PO DAILY 02/03/19 02/03/19 Unknown History Active Meds: Active Medications Acetaminophen (Tylenol) 650 mg PO Q6H PRN PRN Reason: Pain, Mild (1-3) Last Admin: 02/13/19 13:29 Dose: 650 mg Documented by: Allopurinol (Zyloprim) 150 mg PO DAILY [facility] Last Admin: 02/15/19 11:54 Dose: 150 mg Documented by: Alprazolam (Xanax) 0.5 mg PO Q8H [facility] Last Admin: 02/16/19 06:11 Dose: Not Given Documented by: Amlodipine Besylate (Norvasc) 5 mg PO DAILY [facility] Last Admin: 02/15/19 11:51 Dose: 5 mg Documented by: Aspirin (Aspirin) 325 mg PO DAILY [facility] Last Admin: 02/15/19 11:52 Dose: 325 mg Documented by: Atenolol (Tenormin) 50 mg PO DAILY [facility] Last Admin: 02/15/19 11:53 Dose: 50 mg Documented by: Atorvastatin Calcium (Lipitor) 40 mg PO HS [facility] Last Admin: 02/15/19 21:44 Dose: 40 mg Documented by: Clopidogrel Bisulfate (Plavix) 75 mg PO DAILY [facility] Last Admin: 02/15/19 11:53 Dose: 75 mg Documented by: Dextrose (D50w (25gm) Syringe) 50 ml IV PRN PRN PRN Reason: Hypoglycemia Divalproex Sodium (Depakote Er) 250 mg PO QPM [facility] Last Admin: 02/15/19 18:17 Dose: 250 mg Documented by: Divalproex Sodium (Depakote Er) 500 mg PO QPM [facility] Last Admin: 02/15/19 18:17 Dose: 500 mg Documented by: Haloperidol (Haldol) 5 mg PO Q6H PRN PRN Reason: Agitation Last Admin: 02/13/19 21:12 Dose: 5 mg Documented by: Haloperidol Lactate (Haldol) 5 mg IM Q6H PRN PRN Reason: Agitation Last Admin: 02/14/19 13:55 Dose: 5 mg Documented by: Insulin Glargine (Lantus) 20 units SUB-Q [facility] Last Admin: 02/15/19 23:39 Dose: 20 units Documented by: Insulin Human Lispro (Humalog) 0 unit SUB-Q [facility]; Protocol Last Admin: 02/15/19 23:51 Dose: 3 unit Documented by: Loratadine (Claritin) 10 mg PO DAILY [facility] Last Admin: 02/15/19 11:53 Dose: 10 mg Documented by: Lorazepam (Ativan) 2 mg IM Q6H PRN PRN Reason: Agitation Last Admin: 02/14/19 02:04 Dose: 2 mg Documented by: Lorazepam (Ativan) 2 mg PO Q6H PRN PRN Reason: Agitation Last Admin: 02/13/19 09:34 Dose: 2 mg Documented by: Magnesium Oxide (Mag-Ox) 400 mg PO QDAY [facility] Last Admin: 02/15/19 11:52 Dose: 400 mg Documented by: Melatonin (Melatonin) 10 mg PO QPM [facility] Last Admin: 02/15/19 18:17 Dose: 10 mg Documented by: Montelukast Sodium (Singulair) 10 mg PO DAILY [facility] Last Admin: 02/15/19 11:53 Dose: 10 mg Documented by: Pantoprazole Sodium (Protonix) 40 mg PO QDAY [facility] Last Admin: 02/15/19 11:52 Dose: 40 mg Documented by: Polyethylene Glycol (Miralax 3350) 17 gm PO QDAY PRN PRN Reason: Constipation Potassium Chloride (K-Dur) 20 meq PO DAILY [facility] Last Admin: 02/15/19 11:52 Dose: 20 meq Documented by: Risperidone (Risperdal) 2 mg PO QPM [facility] Last Admin: 02/15/19 18:17 Dose: 2 mg Documented by: Trazodone HCl (Desyrel) 150 mg PO QHS [facility] Last Admin: 02/15/19 21:43 Dose: 150 mg Documented by: Results - Results Labs/Vitals: Laboratory Last Values WBC 7.6 K/mm3 (4.5-11.0) 02/04/19 06:44 RBC 4.40 M/mm3 (3.65-5.03) 02/04/19 06:44 Hgb 13.4 gm/dl (10.1-14.3) 02/04/19 06:44 Hct 39.1 % (30.3-42.9) 02/04/19 06:44 MCV 89 fl (79-97) 02/04/19 06:44 MCH 31 pg (28-32) 02/04/19 06:44 MCHC 34 % (30-34) 02/04/19 06:44 RDW 14.7 % (13.2-15.2) 02/04/19 06:44 Plt Count 197 K/mm3 (140-440) 02/04/19 06:44 Lymph % (Auto) 17.8 % (13.4-35.0) 02/03/19 11:18 [place] % (Auto) 8.3 % (0.0-7.3) H 02/03/19 11:18 Eos % (Auto) 4.8 % (0.0-4.3) H 02/03/19 11:18 Baso % (Auto) 0.6 % (0.0-1.8) 02/03/19 11:18 Lymph # 1.8 K/mm3 (1.2-5.4) 02/03/19 11:18 [place] # 0.8 K/mm3 (0.0-0.8) 02/03/19 11:18 Eos # 0.5 K/mm3 (0.0-0.4) H 02/03/19 11:18 Baso # 0.1 K/mm3 (0.0-0.1) 02/03/19 11:18 Seg Neutrophils % 68.5 % (40.0-70.0) 02/03/19 11:18 Seg Neutrophils # 6.9 K/mm3 (1.8-7.7) 02/03/19 11:18 Sodium 141 mmol/L (137-145) 02/04/19 06:44 Potassium 3.2 mmol/L (3.6-5.0) L 02/04/19 06:44 Chloride 103.1 mmol/L (98-107) 02/04/19 06:44 Carbon Dioxide 23 mmol/L (22-30) 02/04/19 06:44 Anion Gap 18 mmol/L 02/04/19 06:44 BUN 20 mg/dL (7-17) H 02/04/19 06:44 Creatinine 1.5 mg/dL (0.7-1.2) H 02/04/19 06:44 Estimated GFR 34 ml/min 02/04/19 06:44 BUN/Creatinine Ratio 13 % 02/04/19 06:44 Glucose 244 mg/dL (65-100) H 02/04/19 06:44 POC Glucose 96 (70-105) 02/16/19 08:28 Hemoglobin A1c 9.1 % (4-6) H 02/03/19 11:18 Calcium 8.8 mg/dL (8.4-10.2) 02/04/19 06:44 Total Bilirubin 0.90 mg/dL (0.1-1.2) 02/03/19 11:18 AST 32 units/L (5-40) 02/03/19 11:18 ALT 25 units/L (7-56) 02/03/19 11:18 Alkaline Phosphatase 88 units/L (35-129) 02/03/19 11:18 Total Protein 6.7 g/dL (6.3-8.2) 02/03/19 11:18 Albumin 3.0 g/dL (3.9-5) L 02/03/19 11:18 Albumin/Globulin Ratio 0.8 % 02/03/19 11:18 Triglycerides 315 mg/dL (2-149) H 02/03/19 11:18 Cholesterol 190 mg/dL (50-199) 02/03/19 11:18 LDL Cholesterol Direct 116 mg/dL (50-130) 02/03/19 11:18 HDL Cholesterol 33 mg/dL (40-59) L 02/03/19 11:18 Cholesterol/HDL Ratio 5.75 % 02/03/19 11:18 Urine Color Yellow (Yellow) 02/15/19 15:25 Urine Turbidity Clear (Clear) 02/15/19 15:25 Urine pH 7.0 (5.0-7.0) 02/15/19 15:25 Ur Specific [place] 1.007 (1.003-1.030) 02/15/19 15:25 Urine Protein 100 mg/dl mg/dL (Negative) 02/15/19 15:25 Urine Glucose (UA) >=500 mg/dL (Negative) 02/15/19 15:25 Urine Ketones Neg mg/dL (Negative) 02/15/19 15:25 Urine Blood Sm (Negative) 02/15/19 15:25 Urine Nitrite Neg (Negative) 02/15/19 15:25 Urine Bilirubin Neg (Negative) 02/15/19 15:25 Urine Urobilinogen < 2.0 mg/dL (<2.0) 02/15/19 15:25 Ur Leukocyte Esterase Neg (Negative) 02/15/19 15:25 Urine WBC (Auto) 7.0 /HPF (0.0-6.0) H 02/15/19 15:25 Urine RBC (Auto) 3.0 /HPF (0.0-6.0) 02/15/19 15:25 U Epithel Cells (Auto) < 1.0 /HPF (0-13.0) 02/15/19 15:25 Hyaline Casts 2 /LPF 02/03/19 15:09 Urine Mucus Few /HPF 02/03/19 15:09 Urine Yeast (Budding) 2+ /HPF 02/15/19 15:25 Last Vital Signs Temp 97.8 F 02/15/19 20:20 Pulse 67 02/15/19 20:20 Resp 18 02/15/19 20:20 BP 153/69 10/08/19 20:20 Pulse Ox 95 02/15/19 20:20
[2019-02-16] MEDS: PLAVIX PO SCH (11:44)
[2019-02-16] MEDS: MAG-OX PO SCH (11:44)
[2019-02-16] MEDS: PROTONIX PO SCH (11:44)
[2019-02-16] MEDS: ASPIRIN PO SCH (11:44)
[2019-02-16] MEDS: SINGULAIR PO SCH (11:45)
[2019-02-16] MEDS: TENORMIN PO SCH (11:45)
[2019-02-16] MEDS: K-DUR PO SCH (11:45)
[2019-02-16] MEDS: NORVASC PO SCH (11:46)
[2019-02-16] MEDS: CLARITIN PO SCH (11:46)
[2019-02-16] MEDS: ZYLOPRIM PO SCH (11:46)
--- NOTE | 2019-02-16 12:46 | Progress Note ---
Assessment and Plan Assessment and plan: Patient is a 74 yo woman with a history of hypertension, gout, dyslipidemia, CAD s/p CABG, CHF, afib not on anticoagulation, CVA x 2, early dementia, depression and IDDM type 2 on Lantus and Humulin R SSI who presented from [facility] to [facility] unit after suicidal attempt via Drug Overdose with Xanax. We are consulted for Medical evaluation and management of DM. Patient denies SI. She fell and bite her tongue after the drug overdose. Currently, she denies any specific complaints. -UTI, urine culture pending, uncomplicated acute simple cystitis: treat with cipro or levaquin (PCN allergic) x 3-5 days, -Uncontrolled type 2 DM with hyperglycemia on insulin: Restart Lantus and sliding scale, checked A1C 9.1 -Afib: continue rate control medication, not on anticoagulation maybe due to fall risk,get baseline EKG -CHF: continue lasix 20mg/d -Gout: Allopurinol -Depression with SA: per psych -Stage 2 sacral ulcer: consult wound care -Functional quadriplegia: consult PT -Accelerated hypertension: restart bblocker UA culture pending BMP Start Levaquin 250mg/day x 3 days. History Interval history: VIJAY Hough called me to re-evaluate patient because UA was abnormal, it was ordered by Psychiatrist, Dr. Mckeon Hospitalist Physical - Physical exam Narrative exam: Gen: WDWN, NAD, Awake, Alert, Orientated HEENT: NCAT, EOMI, PERRL, OP with right tip of tongue laceration Neck: supple, no adenopathy, no thyromegaly, no JVD CVS/Heart: irregular normal S1S2, pulses present bilaterally Chest/Lungs: CTA B, Symmetrical chest expansion, good air entry bilaterally GI/Abdomen: soft, NTND, good bowel sounds, no guarding or rebound /Bladder: no suprapubic tenderness, no CVA or paraspinal tenderness Extermity/Skin: no c/c/e, no obvious rash MSK: FROM x 4 Neuro: CN 2-12 grossly intact, no new focal deficits Psych: calm - Constitutional Vitals: Temp Pulse Resp BP Pulse Ox 97.8 F 56 L 18 144/58 98 02/15/19 20:20 02/16/19 11:46 02/15/19 20:20 02/16/19 11:46 02/16/19 11:39 General appearance: Present: no acute distress Results - Labs CBC & Chem 7: 02/04/19 06:44 02/04/19 06:44 Labs: Laboratory Last Values WBC 7.6 K/mm3 (4.5-11.0) 02/04/19 06:44 RBC 4.40 M/mm3 (3.65-5.03) 02/04/19 06:44 Hgb 13.4 gm/dl (10.1-14.3) 02/04/19 06:44 Hct 39.1 % (30.3-42.9) 02/04/19 06:44 MCV 89 fl (79-97) 02/04/19 06:44 MCH 31 pg (28-32) 02/04/19 06:44 MCHC 34 % (30-34) 02/04/19 06:44 RDW 14.7 % (13.2-15.2) 02/04/19 06:44 Plt Count 197 K/mm3 (140-440) 02/04/19 06:44 Lymph % (Auto) 17.8 % (13.4-35.0) 02/03/19 11:18 [place] % (Auto) 8.3 % (0.0-7.3) H 02/03/19 11:18 Eos % (Auto) 4.8 % (0.0-4.3) H 02/03/19 11:18 Baso % (Auto) 0.6 % (0.0-1.8) 02/03/19 11:18 Lymph # 1.8 K/mm3 (1.2-5.4) 02/03/19 11:18 [place] # 0.8 K/mm3 (0.0-0.8) 02/03/19 11:18 Eos # 0.5 K/mm3 (0.0-0.4) H 02/03/19 11:18 Baso # 0.1 K/mm3 (0.0-0.1) 02/03/19 11:18 Seg Neutrophils % 68.5 % (40.0-70.0) 02/03/19 11:18 Seg Neutrophils # 6.9 K/mm3 (1.8-7.7) 02/03/19 11:18 Sodium 141 mmol/L (137-145) 02/04/19 06:44 Potassium 3.2 mmol/L (3.6-5.0) L 02/04/19 06:44 Chloride 103.1 mmol/L (98-107) 02/04/19 06:44 Carbon Dioxide 23 mmol/L (22-30) 02/04/19 06:44 Anion Gap 18 mmol/L 02/04/19 06:44 BUN 20 mg/dL (7-17) H 02/04/19 06:44 Creatinine 1.5 mg/dL (0.7-1.2) H 02/04/19 06:44 Estimated GFR 34 ml/min 02/04/19 06:44 BUN/Creatinine Ratio 13 % 02/04/19 06:44 Glucose 244 mg/dL (65-100) H 02/04/19 06:44 POC Glucose 135 (70-105) H 02/16/19 12:05 Hemoglobin A1c 9.1 % (4-6) H 02/03/19 11:18 Calcium 8.8 mg/dL (8.4-10.2) 02/04/19 06:44 Total Bilirubin 0.90 mg/dL (0.1-1.2) 02/03/19 11:18 AST 32 units/L (5-40) 02/03/19 11:18 ALT 25 units/L (7-56) 02/03/19 11:18 Alkaline Phosphatase 88 units/L (35-129) 02/03/19 11:18 Total Protein 6.7 g/dL (6.3-8.2) 02/03/19 11:18 Albumin 3.0 g/dL (3.9-5) L 02/03/19 11:18 Albumin/Globulin Ratio 0.8 % 02/03/19 11:18 Triglycerides 315 mg/dL (2-149) H 02/03/19 11:18 Cholesterol 190 mg/dL (50-199) 02/03/19 11:18 LDL Cholesterol Direct 116 mg/dL (50-130) 02/03/19 11:18 HDL Cholesterol 33 mg/dL (40-59) L 02/03/19 11:18 Cholesterol/HDL Ratio 5.75 % 02/03/19 11:18 Urine Color Yellow (Yellow) 02/15/19 15:25 Urine Turbidity Clear (Clear) 02/15/19 15:25 Urine pH 7.0 (5.0-7.0) 02/15/19 15:25 Ur Specific [place] 1.007 (1.003-1.030) 02/15/19 15:25 Urine Protein 100 mg/dl mg/dL (Negative) 02/15/19 15:25 Urine Glucose (UA) >=500 mg/dL (Negative) 02/15/19 15:25 Urine Ketones Neg mg/dL (Negative) 02/15/19 15:25 Urine Blood Sm (Negative) 02/15/19 15:25 Urine Nitrite Neg (Negative) 02/15/19 15:25 Urine Bilirubin Neg (Negative) 02/15/19 15:25 Urine Urobilinogen < 2.0 mg/dL (<2.0) 02/15/19 15:25 Ur Leukocyte Esterase Neg (Negative) 02/15/19 15:25 Urine WBC (Auto) 7.0 /HPF (0.0-6.0) H 02/15/19 15:25 Urine RBC (Auto) 3.0 /HPF (0.0-6.0) 02/15/19 15:25 U Epithel Cells (Auto) < 1.0 /HPF (0-13.0) 02/15/19 15:25 Hyaline Casts 2 /LPF 02/03/19 15:09 Urine Mucus Few /HPF 02/03/19 15:09 Urine Yeast (Budding) 2+ /HPF 02/15/19 15:25 Active Medications - Current Medications Current Medications: Generic Name Dose Route Start Last Admin Trade Name Shyam PRN Reason Stop Dose Admin Acetaminophen 650 mg 02/03/19 10:03 02/13/19 13:29 Tylenol PO 650 mg Q6H PRN Administration Pain, Mild (1-3) Allopurinol 150 mg 02/03/19 14:00 02/16/19 11:46 Zyloprim PO 150 mg DAILY BENEDICTO Administration Alprazolam 0.5 mg 02/16/19 14:00 Xanax PO Q8HR BENEDICTO Amlodipine Besylate 5 mg 02/03/19 14:00 02/16/19 11:46 Norvasc PO 5 mg DAILY BENEDICTO Administration Aspirin 325 mg 02/03/19 14:00 02/16/19 11:44 Aspirin PO 325 mg DAILY BENEDICTO Administration Atenolol 50 mg 02/04/19 10:00 02/16/19 11:45 Tenormin PO 50 mg DAILY BENEDICTO Administration Atorvastatin Calcium 40 mg 02/03/19 22:00 02/15/19 21:44 Lipitor PO 40 mg HS BENEDICTO Administration Clopidogrel Bisulfate 75 mg 02/03/19 14:00 02/16/19 11:44 Plavix PO 75 mg DAILY BENEDICTO Administration Dextrose 50 ml 02/03/19 13:00 D50w (25gm) Syringe IV PRN PRN Hypoglycemia Divalproex Sodium 250 mg 02/13/19 18:00 02/15/19 18:17 Depakote Er PO 250 mg QPM BENEDICTO Administration Divalproex Sodium 500 mg 02/13/19 18:00 02/15/19 18:17 Depakote Er PO 500 mg QPM BENEDICTO Administration Haloperidol 5 mg 02/02/19 22:53 02/13/19 21:12 Haldol PO 5 mg Q6H PRN Administration Agitation Haloperidol Lactate 5 mg 02/02/19 22:51 02/14/19 13:55 Haldol IM 5 mg Q6H PRN Administration Agitation Insulin Glargine 20 units 02/03/19 22:00 02/15/19 23:39 Lantus SUB-Q 20 units HS BENEDICTO Administration Insulin Human Lispro 0 unit 02/03/19 13:00 02/16/19 08:15 Humalog SUB-Q Not Given ACHS [facility] Protocol Loratadine 10 mg 02/04/19 10:00 02/16/19 11:46 Claritin PO 10 mg DAILY BENEDICTO Administration Lorazepam 2 mg 02/02/19 22:51 02/14/19 02:04 Ativan IM 2 mg Q6H PRN Administration Agitation Lorazepam 2 mg 02/02/19 22:53 02/13/19 09:34 Ativan PO 2 mg Q6H PRN Administration Agitation Magnesium Oxide 400 mg 02/04/19 10:00 02/16/19 11:44 Mag-Ox PO 400 mg QDAY BENEDICTO Administration Melatonin 10 mg 02/13/19 18:00 02/15/19 18:17 Melatonin PO 10 mg QPM BENEDICTO Administration Montelukast Sodium 10 mg 02/04/19 10:00 02/16/19 11:45 Singulair PO 10 mg DAILY BENEDICTO Administration Pantoprazole Sodium 40 mg 02/03/19 13:00 02/16/19 11:44 Protonix PO 40 mg QDAY BENEDICTO Administration Polyethylene Glycol 17 gm 02/03/19 13:00 Miralax 3350 PO QDAY PRN Constipation Potassium Chloride 20 meq 02/04/19 10:00 02/16/19 11:45 K-Dur PO 20 meq DAILY BENEDICTO Administration Risperidone 2 mg 02/13/19 18:00 02/15/19 18:17 Risperdal PO 2 mg QPM BENEDICTO Administration Trazodone HCl 150 mg 02/03/19 22:00 02/15/19 21:43 Desyrel PO 150 mg QHS BENEDICTO Administration Nutrition/Malnutrition Assess - Dietary Evaluation Nutrition/Malnutrition Findings: Nutrition Notes Start: 02/09/19 09:51 Freq: Status: Active Protocol: Document 02/09/19 09:51 PS (Rec: 02/09/19 10:35 PS [id number]) Co-Sign 02/09/19 09:51 NHALL Nutrition Notes Need for Assessment generated from: LOS Initial or Follow up Brief Note Current Diagnosis Diabetes,Hypertension Other Pertinent Diagnosis MDD, Anxiety Disorder Current Diet Cardiac/Consistent Carbohydrate Labs/Tests POC Glu 196 Pertinent Medications Reviewed Height 5 ft 4 in Weight 92.9 kg Switchback Body Weight (kg) 54.54 BMI 35.2 Weight Status Obese Subjective/Other Information Consult for LOS. Pt. intakes noted in GP ADLs of 75-100% the past week. Burn Absent Trauma Absent Nutrition Intervention Anticipated Discharge Needs: Cardiac/Consistent Carbohydrate Diet Revisit per MD consult or patient Sign Off request:
[2019-02-16 14:24] LABS: Calcium 8.3 mg/dL (8.4-10.2)
[2019-02-16] MEDS: MELATONIN PO SCH (17:27)
[2019-02-16] MEDS: LEVAQUIN PO SCH (17:27)
[2019-02-16] MEDS: TYLENOL PO PRN (18:08)
[2019-02-16] MEDS: RisperDAL PO SCH (20:13)
[2019-02-16] MEDS: DESYREL PO SCH (21:14)
[2019-02-16] MEDS: LANTUS SUB-Q SCH (21:25)
[2019-02-17] MEDS: XANAX PO SCH ×3 (06:28→21:22)
[2019-02-17] MEDS: HumaLOG SUB-Q SCH ×4 (08:25→21:20)
--- NOTE | 2019-02-17 09:51 | Progress Note ---
Subjective Date of service: 02/17/19 Principal diagnosis: Severe depression and Anxiety Subjective Comment: The patient slept through the night. She continues to require 1:1 as she attempts to walk but her gait is very unsteady. Nursing staff reports that she slept for 6 to 7hrs during the night, her appetite is good, MSE Orientation: time, place, person Affect: depressed, anxious Mood: congruent with affect Thought Process: Intact Perceptions: none Speech: normal rate and pattern Concentration: focused Motor activity: normal Level of consciousness: alert Memory: Intact Appetite: WNL Interaction: cooperative Objective - Criteria for Continued Treatment Criteria for Continued Treatment: Stablizing Level of Functioning, Improving Emotional/Socia - Objective Observation Participation Level: Minimal Reason(s) For Not Participating: Unable Assessment and Plan - Patient Problems (1) MDD (major depressive disorder), recurrent episode, severe Current Visit: Yes Status: Acute Plan to address problem: Patient will be admitted for inpatient psychiatric evaluation, medication adjustment and close monitoring The patient's behavior, mood, sleep and appetite will be closely monitored. Patient will be enrolled in individual and group therapeutic sessions and encouraged to attend. Patient will be provided with a safe and structured environment. Patient's physical health needs will be addressed by the Hospitalist. Social Assessment will be completed and the Boat Outboard [employer] Mechanic will work with patient and family to ensure a suitable and safe disposition Medication adjustment will be made as clinically indicated Continue Alprazolam (Xanax) 0.5 mg PO Q8H Will discontinue Depakote - does not appear to be beneficial. Will decrease Trazodone to 50mg qhs (2) Anxiety disorder, unspecified Current Visit: Yes Status: Acute Medications and Allergies Allergies Allergy/AdvReac Type Severity Reaction Status Date / Time codeine AdvReac Unknown Verified 02/03/19 03:04 morphine AdvReac Unknown Verified 02/03/19 03:04 Penicillins AdvReac Unknown Verified 02/03/19 03:04 Home Medications Medication Instructions Recorded Confirmed Last Taken Type Hydrocodone-Acetamin 5-300 mg 5 - 325 mg PO BID PRN 02/02/19 02/02/19 Unknown History Insulin NPH Human Isophane 10 units SUB-Q TID 02/02/19 02/02/19 Unknown History [Humulin N] ALPRAZolam [Xanax TAB] 0.5 mg PO BID 02/03/19 02/03/19 Unknown History ARIPiprazole [Abilify TAB] 2 mg PO DAILY 02/03/19 02/03/19 Unknown History Allopurinol [Zyloprim] 300 mg PO DAILY 02/03/19 02/03/19 Unknown History Aspirin 325 mg PO DAILY 02/03/19 02/03/19 Unknown History Atenolol [Tenormin] 50 mg PO DAILY 02/03/19 02/03/19 Unknown History AtorvaSTATin [Lipitor] 40 mg PO HS 02/03/19 02/03/19 Unknown History Clopidogrel [Plavix] 75 mg PO DAILY 02/03/19 02/03/19 Unknown History Escitalopram [Lexapro] 10 mg PO DAILY 02/03/19 02/03/19 Unknown History Fexofenadine HCl 180 mg PO DAILY 02/03/19 02/03/19 Unknown History Insulin Glargine [Lantus VIAL] 30 units SUB-Q HS 02/03/19 02/03/19 Unknown History Insulin Regular, Human [Humulin R] 10 units SUB-Q TID 02/03/19 02/03/19 Unknown History Magnesium Oxide 400 400 mg PO DAILY 02/03/19 02/03/19 Unknown History Montelukast Sodium 10 mg PO DAILY 02/03/19 02/03/19 Unknown History Potassium Chloride [K-Dur] 20 meq PO DAILY 02/03/19 02/03/19 Unknown History Torsemide [Demadex] 20 mg PO DAILY 02/03/19 02/03/19 Unknown History Trazodone HCl 150 mg PO HS 02/03/19 02/03/19 Unknown History amLODIPine [Norvasc] 5 mg PO DAILY 02/03/19 02/03/19 Unknown History Active Meds: Active Medications Acetaminophen (Tylenol) 650 mg PO Q6H PRN PRN Reason: Pain, Mild (1-3) Last Admin: 02/13/19 13:29 Dose: 650 mg Documented by: Allopurinol (Zyloprim) 150 mg PO DAILY [facility] Last Admin: 02/16/19 11:46 Dose: 150 mg Documented by: Alprazolam (Xanax) 0.5 mg PO Q8HR [facility] Last Admin: 02/17/19 06:28 Dose: 0.5 mg Documented by: Amlodipine Besylate (Norvasc) 5 mg PO DAILY [facility] Last Admin: 02/16/19 11:46 Dose: 5 mg Documented by: Aspirin (Aspirin) 325 mg PO DAILY [facility] Last Admin: 02/16/19 11:44 Dose: 325 mg Documented by: Atenolol (Tenormin) 50 mg PO DAILY [facility] Last Admin: 02/16/19 11:45 Dose: 50 mg Documented by: Atorvastatin Calcium (Lipitor) 40 mg PO [facility] Last Admin: 02/16/19 21:14 Dose: 40 mg Documented by: Clopidogrel Bisulfate (Plavix) 75 mg PO DAILY [facility] Last Admin: 02/16/19 11:44 Dose: 75 mg Documented by: Dextrose (D50w (25gm) Syringe) 50 ml IV PRN PRN PRN Reason: Hypoglycemia Divalproex Sodium (Depakote Er) 250 mg PO QPM [facility] Last Admin: 02/16/19 20:13 Dose: 250 mg Documented by: Divalproex Sodium (Depakote Er) 500 mg PO QPM [facility] Last Admin: 02/16/19 20:12 Dose: 500 mg Documented by: Haloperidol (Haldol) 5 mg PO Q6H PRN PRN Reason: Agitation Last Admin: 02/13/19 21:12 Dose: 5 mg Documented by: Haloperidol Lactate (Haldol) 5 mg IM Q6H PRN PRN Reason: Agitation Last Admin: 02/14/19 13:55 Dose: 5 mg Documented by: Insulin Glargine (Lantus) 20 units SUB-Q [facility] Last Admin: 02/16/19 21:25 Dose: 20 units Documented by: Insulin Human Lispro (Humalog) 0 unit SUB-Q [facility]; Protocol Last Admin: 02/17/19 08:25 Dose: 2 unit Documented by: Levofloxacin (Levaquin) 250 mg PO Q24HR [facility] Stop: 02/18/19 10:01 Last Admin: 02/16/19 17:27 Dose: Not Given Documented by: Loratadine (Claritin) 10 mg PO DAILY [facility] Last Admin: 02/16/19 11:46 Dose: 10 mg Documented by: Lorazepam (Ativan) 2 mg IM Q6H PRN PRN Reason: Agitation Last Admin: 02/14/19 02:04 Dose: 2 mg Documented by: Lorazepam (Ativan) 2 mg PO Q6H PRN PRN Reason: Agitation Last Admin: 02/13/19 09:34 Dose: 2 mg Documented by: Magnesium Oxide (Mag-Ox) 400 mg PO QDAY [facility] Last Admin: 02/16/19 11:44 Dose: 400 mg Documented by: Melatonin (Melatonin) 10 mg PO QPM [facility] Last Admin: 02/16/19 17:27 Dose: Not Given Documented by: Montelukast Sodium (Singulair) 10 mg PO DAILY [facility] Last Admin: 02/16/19 11:45 Dose: 10 mg Documented by: Pantoprazole Sodium (Protonix) 40 mg PO QDAY [facility] Last Admin: 02/16/19 11:44 Dose: 40 mg Documented by: Polyethylene Glycol (Miralax 3350) 17 gm PO QDAY PRN PRN Reason: Constipation Potassium Chloride (K-Dur) 20 meq PO DAILY [facility] Last Admin: 02/16/19 11:45 Dose: 20 meq Documented by: Risperidone (Risperdal) 2 mg PO QPM [facility] Last Admin: 02/16/19 20:13 Dose: 2 mg Documented by: Trazodone HCl (Desyrel) 150 mg PO QHS [facility] Last Admin: 02/16/19 21:14 Dose: 150 mg Documented by: Results - Results Labs/Vitals: Laboratory Last Values WBC 7.6 K/mm3 (4.5-11.0) 02/04/19 06:44 RBC 4.40 M/mm3 (3.65-5.03) 02/04/19 06:44 Hgb 13.4 gm/dl (10.1-14.3) 02/04/19 06:44 Hct 39.1 % (30.3-42.9) 02/04/19 06:44 MCV 89 fl (79-97) 02/04/19 06:44 MCH 31 pg (28-32) 02/04/19 06:44 MCHC 34 % (30-34) 02/04/19 06:44 RDW 14.7 % (13.2-15.2) 02/04/19 06:44 Plt Count 197 K/mm3 (140-440) 02/04/19 06:44 Lymph % (Auto) 17.8 % (13.4-35.0) 02/03/19 11:18 [place] % (Auto) 8.3 % (0.0-7.3) H 02/03/19 11:18 Eos % (Auto) 4.8 % (0.0-4.3) H 02/03/19 11:18 Baso % (Auto) 0.6 % (0.0-1.8) 02/03/19 11:18 Lymph # 1.8 K/mm3 (1.2-5.4) 02/03/19 11:18 [place] # 0.8 K/mm3 (0.0-0.8) 02/03/19 11:18 Eos # 0.5 K/mm3 (0.0-0.4) H 02/03/19 11:18 Baso # 0.1 K/mm3 (0.0-0.1) 02/03/19 11:18 Seg Neutrophils % 68.5 % (40.0-70.0) 02/03/19 11:18 Seg Neutrophils # 6.9 K/mm3 (1.8-7.7) 02/03/19 11:18 Sodium 138 mmol/L (137-145) 02/16/19 13:45 Potassium 4.7 mmol/L (3.6-5.0) 02/16/19 13:45 Chloride 104.5 mmol/L (98-107) 02/16/19 13:45 Carbon Dioxide 23 mmol/L (22-30) 02/16/19 13:45 Anion Gap 15 mmol/L 02/16/19 13:45 BUN 23 mg/dL (7-17) H 02/16/19 13:45 Creatinine 1.4 mg/dL (0.7-1.2) H 02/16/19 13:45 Estimated GFR 37 ml/min 02/16/19 13:45 BUN/Creatinine Ratio 16 % 02/16/19 13:45 Glucose 153 mg/dL (65-100) H 02/16/19 13:45 POC Glucose 158 (70-105) H 02/17/19 06:39 Hemoglobin A1c 9.1 % (4-6) H 02/03/19 11:18 Calcium 8.3 mg/dL (8.4-10.2) L 02/16/19 13:45 Total Bilirubin 0.90 mg/dL (0.1-1.2) 02/03/19 11:18 AST 32 units/L (5-40) 02/03/19 11:18 ALT 25 units/L (7-56) 02/03/19 11:18 Alkaline Phosphatase 88 units/L (35-129) 02/03/19 11:18 Total Protein 6.7 g/dL (6.3-8.2) 02/03/19 11:18 Albumin 3.0 g/dL (3.9-5) L 02/03/19 11:18 Albumin/Globulin Ratio 0.8 % 02/03/19 11:18 Triglycerides 315 mg/dL (2-149) H 02/03/19 11:18 Cholesterol 190 mg/dL (50-199) 02/03/19 11:18 LDL Cholesterol Direct 116 mg/dL (50-130) 02/03/19 11:18 HDL Cholesterol 33 mg/dL (40-59) L 02/03/19 11:18 Cholesterol/HDL Ratio 5.75 % 02/03/19 11:18 Urine Color Yellow (Yellow) 02/15/19 15:25 Urine Turbidity Clear (Clear) 02/15/19 15:25 Urine pH 7.0 (5.0-7.0) 02/15/19 15:25 Ur Specific [place] 1.007 (1.003-1.030) 02/15/19 15:25 Urine Protein 100 mg/dl mg/dL (Negative) 02/15/19 15:25 Urine Glucose (UA) >=500 mg/dL (Negative) 02/15/19 15:25 Urine Ketones Neg mg/dL (Negative) 02/15/19 15:25 Urine Blood Sm (Negative) 02/15/19 15:25 Urine Nitrite Neg (Negative) 02/15/19 15:25 Urine Bilirubin Neg (Negative) 02/15/19 15:25 Urine Urobilinogen < 2.0 mg/dL (<2.0) 02/15/19 15:25 Ur Leukocyte Esterase Neg (Negative) 02/15/19 15:25 Urine WBC (Auto) 7.0 /HPF (0.0-6.0) H 02/15/19 15:25 Urine RBC (Auto) 3.0 /HPF (0.0-6.0) 02/15/19 15:25 U Epithel Cells (Auto) < 1.0 /HPF (0-13.0) 02/15/19 15:25 Hyaline Casts 2 /LPF 02/03/19 15:09 Urine Mucus Few /HPF 02/03/19 15:09 Urine Yeast (Budding) 2+ /HPF 02/15/19 15:25 Last Vital Signs Temp 98.1 F 02/16/19 22:00 Pulse 59 L 02/16/19 22:00 Resp 20 02/16/19 22:00 BP 145/51 02/16/19 22:00 Pulse Ox 96 02/16/19 22:00
[2019-02-17] MEDS: TENORMIN PO SCH (10:22)
[2019-02-17] MEDS: ZYLOPRIM PO SCH (10:23)
[2019-02-17] MEDS: K-DUR PO SCH (10:23)
[2019-02-17] MEDS: PROTONIX PO SCH (10:23)
[2019-02-17] MEDS: ASPIRIN PO SCH (10:24)
[2019-02-17] MEDS: SINGULAIR PO SCH (10:24)
[2019-02-17] MEDS: MAG-OX PO SCH (10:24)
[2019-02-17] MEDS: CLARITIN PO SCH (10:24)
[2019-02-17] MEDS: PLAVIX PO SCH (10:24)
[2019-02-17] MEDS: NORVASC PO SCH (10:25)
[2019-02-17] MEDS: LEVAQUIN PO SCH (10:27)
[2019-02-17] MEDS: MELATONIN PO SCH (17:20)
[2019-02-17] MEDS: RisperDAL PO SCH (17:20)
[2019-02-17] MEDS: LANTUS SUB-Q SCH (21:20)
[2019-02-17] MEDS: DESYREL PO SCH (21:21)
[2019-02-18] MEDS: ATIVAN IM PRN ×2 (00:15→21:23)
[2019-02-18] MEDS: HALDOL IM PRN ×2 (00:15→21:22)
[2019-02-18] MEDS: HumaLOG SUB-Q SCH ×4 (07:26→21:21)
[2019-02-18] MEDS: XANAX PO SCH ×3 (07:56→21:22)
[2019-02-18] MEDS: ASPIRIN PO SCH (12:32)
[2019-02-18] MEDS: NORVASC PO SCH (12:32)
[2019-02-18] MEDS: LEVAQUIN PO SCH (12:33)
[2019-02-18] MEDS: MAG-OX PO SCH (12:33)
[2019-02-18] MEDS: ZYLOPRIM PO SCH (12:34)
[2019-02-18] MEDS: PLAVIX PO SCH (12:34)
[2019-02-18] MEDS: SINGULAIR PO SCH (12:34)
[2019-02-18] MEDS: TENORMIN PO SCH (12:34)
[2019-02-18] MEDS: K-DUR PO SCH (12:35)
[2019-02-18] MEDS: PROTONIX PO SCH (12:35)
[2019-02-18] MEDS: CLARITIN PO SCH (12:35)
[2019-02-18] MEDS: RisperDAL PO SCH (17:49)
[2019-02-18] MEDS: MELATONIN PO SCH (17:50)
[2019-02-18] MEDS: DESYREL PO SCH (21:22)
[2019-02-18] MEDS: LANTUS SUB-Q SCH (21:22)
[2019-02-19] MEDS: XANAX PO SCH ×3 (06:10→21:15)
[2019-02-19] MEDS: HumaLOG SUB-Q SCH ×4 (15:29→21:16)
[2019-02-19] MEDS: MAG-OX PO SCH (15:30)
[2019-02-19] MEDS: K-DUR PO SCH (15:31)
[2019-02-19] MEDS: ASPIRIN PO SCH (15:31)
[2019-02-19] MEDS: PLAVIX PO SCH (15:31)
[2019-02-19] MEDS: PROTONIX PO SCH (15:32)
[2019-02-19] MEDS: ZYLOPRIM PO SCH (15:32)
[2019-02-19] MEDS: CLARITIN PO SCH (15:32)
[2019-02-19] MEDS: SINGULAIR PO SCH (15:32)
[2019-02-19] MEDS: TENORMIN PO SCH (15:33)
[2019-02-19] MEDS: NORVASC PO SCH (15:34)
--- NOTE | 2019-02-19 16:52 | Progress Note ---
Subjective Date of service: 02/18/19 Principal diagnosis: Severe depression and Anxiety Subjective Comment: The patient is not doing well. Multiple medication adjustment has been made with no significant progress. Per Nursing Note, patient was medicated with Haldol and Ativan IM/MD order at 0015 for, unorganized thoughts, hallucinations and anxiety. Patient was yelling that someone is raping her and continued to talk to herself. Patient was attempting to get out the bed and disrobe. MSE Orientation: time, place, person Affect: depressed, anxious Mood: congruent with affect Thought Process: Intact Perceptions: none Speech: normal rate and pattern Concentration: focused Motor activity: normal Level of consciousness: alert Memory: Intact Appetite: WNL Interaction: uncooperative Objective - Criteria for Continued Treatment Criteria for Continued Treatment: Improving Level of Functioning, Stablizing Level of Functioning, Improving Emotional/Socia - Objective Observation Participation Level: Minimal Reason(s) For Not Participating: Unable Assessment and Plan - Patient Problems (1) MDD (major depressive disorder), recurrent episode, severe Current Visit: Yes Status: Acute Plan to address problem: Patient will be admitted for inpatient psychiatric evaluation, medication adjustment and close monitoring The patient's behavior, mood, sleep and appetite will be closely monitored. Patient will be enrolled in individual and group therapeutic sessions and encouraged to attend. Patient will be provided with a safe and structured environment. Patient's physical health needs will be addressed by the Hospitalist. Social Assessment will be completed and the Manager Garage will work with patient and family to ensure a suitable and safe disposition Medication adjustment will be made as clinically indicated (2) Anxiety disorder, unspecified Current Visit: Yes Status: Acute Plan to address problem: As above Medications and Allergies Allergies Allergy/AdvReac Type Severity Reaction Status Date / Time codeine AdvReac Unknown Verified 02/03/19 03:04 morphine AdvReac Unknown Verified 02/03/19 03:04 Penicillins AdvReac Unknown Verified 02/03/19 03:04 Home Medications Medication Instructions Recorded Confirmed Last Taken Type Hydrocodone-Acetamin 5-300 mg 5 - 325 mg PO BID PRN 02/02/19 02/02/19 Unknown History Insulin NPH Human Isophane 10 units SUB-Q TID 02/02/19 02/02/19 Unknown History [Humulin N] ALPRAZolam [Xanax TAB] 0.5 mg PO BID 02/03/19 02/03/19 Unknown History ARIPiprazole [Abilify TAB] 2 mg PO DAILY 02/03/19 02/03/19 Unknown History Allopurinol [Zyloprim] 300 mg PO DAILY 02/03/19 02/03/19 Unknown History Aspirin 325 mg PO DAILY 02/03/19 02/03/19 Unknown History Atenolol [Tenormin] 50 mg PO DAILY 02/03/19 02/03/19 Unknown History AtorvaSTATin [Lipitor] 40 mg PO HS 02/03/19 02/03/19 Unknown History Clopidogrel [Plavix] 75 mg PO DAILY 02/03/19 02/03/19 Unknown History Escitalopram [Lexapro] 10 mg PO DAILY 02/03/19 02/03/19 Unknown History Fexofenadine HCl 180 mg PO DAILY 02/03/19 02/03/19 Unknown History Insulin Glargine [Lantus VIAL] 30 units SUB-Q HS 02/03/19 02/03/19 Unknown History Insulin Regular, Human [Humulin R] 10 units SUB-Q TID 02/03/19 02/03/19 Unknown History Magnesium Oxide 400 400 mg PO DAILY 02/03/19 02/03/19 Unknown History Montelukast Sodium 10 mg PO DAILY 02/03/19 02/03/19 Unknown History Potassium Chloride [K-Dur] 20 meq PO DAILY 02/03/19 02/03/19 Unknown History Torsemide [Demadex] 20 mg PO DAILY 02/03/19 02/03/19 Unknown History Trazodone HCl 150 mg PO HS 02/03/19 02/03/19 Unknown History amLODIPine [Norvasc] 5 mg PO DAILY 02/03/19 02/03/19 Unknown History Active Meds: Active Medications Acetaminophen (Tylenol) 650 mg PO Q6H PRN PRN Reason: Pain, Mild (1-3) Last Admin: 02/13/19 13:29 Dose: 650 mg Documented by: Allopurinol (Zyloprim) 150 mg PO DAILY [facility] Last Admin: 02/19/19 15:32 Dose: 150 mg Documented by: Alprazolam (Xanax) 0.5 mg PO Q8HR [facility] Last Admin: 02/19/19 15:32 Dose: 0.5 mg Documented by: Amlodipine Besylate (Norvasc) 5 mg PO DAILY [facility] Last Admin: 10/12/19 15:34 Dose: 5 mg Documented by: Aspirin (Aspirin) 325 mg PO DAILY [facility] Last Admin: 02/19/19 15:31 Dose: 325 mg Documented by: Atenolol (Tenormin) 50 mg PO DAILY [facility] Last Admin: 02/19/19 15:33 Dose: 50 mg Documented by: Atorvastatin Calcium (Lipitor) 40 mg PO HS [facility] Last Admin: 02/18/19 21:22 Dose: 40 mg Documented by: Clopidogrel Bisulfate (Plavix) 75 mg PO DAILY [facility] Last Admin: 02/19/19 15:31 Dose: 75 mg Documented by: Dextrose (D50w (25gm) Syringe) 50 ml IV PRN PRN PRN Reason: Hypoglycemia Haloperidol (Haldol) 5 mg PO Q6H PRN PRN Reason: Agitation Last Admin: 02/13/19 21:12 Dose: 5 mg Documented by: Haloperidol Lactate (Haldol) 5 mg IM Q6H PRN PRN Reason: Agitation Last Admin: 02/18/19 21:22 Dose: 5 mg Documented by: Insulin Glargine (Lantus) 20 units SUB-Q [facility] Last Admin: 02/18/19 21:22 Dose: 20 units Documented by: Insulin Human Lispro (Humalog) 0 unit SUB-Q [facility]; Protocol Last Admin: 02/19/19 15:30 Dose: Not Given Documented by: Loratadine (Claritin) 10 mg PO DAILY [facility] Last Admin: 02/19/19 15:32 Dose: 10 mg Documented by: Lorazepam (Ativan) 2 mg IM Q6H PRN PRN Reason: Agitation Last Admin: 02/18/19 21:23 Dose: 2 mg Documented by: Magnesium Oxide (Mag-Ox) 400 mg PO QDAY [facility] Last Admin: 02/19/19 15:30 Dose: 400 mg Documented by: Melatonin (Melatonin) 10 mg PO QPM [facility] Last Admin: 02/18/19 17:50 Dose: 10 mg Documented by: Montelukast Sodium (Singulair) 10 mg PO DAILY [facility] Last Admin: 02/19/19 15:32 Dose: 10 mg Documented by: Pantoprazole Sodium (Protonix) 40 mg PO QDAY [facility] Last Admin: 02/19/19 15:32 Dose: 40 mg Documented by: Polyethylene Glycol (Miralax 3350) 17 gm PO QDAY PRN PRN Reason: Constipation Potassium Chloride (K-Dur) 20 meq PO DAILY [facility] Last Admin: 02/19/19 15:31 Dose: 20 meq Documented by: Risperidone (Risperdal) 2 mg PO QPM [facility] Last Admin: 02/18/19 17:49 Dose: 2 mg Documented by: Trazodone HCl (Desyrel) 50 mg PO QHS [facility] Last Admin: 02/18/19 21:22 Dose: 50 mg Documented by: Results - Results Labs/Vitals: Laboratory Last Values WBC 7.6 K/mm3 (4.5-11.0) 02/04/19 06:44 RBC 4.40 M/mm3 (3.65-5.03) 02/04/19 06:44 Hgb 13.4 gm/dl (10.1-14.3) 02/04/19 06:44 Hct 39.1 % (30.3-42.9) 02/04/19 06:44 MCV 89 fl (79-97) 02/04/19 06:44 MCH 31 pg (28-32) 02/04/19 06:44 MCHC 34 % (30-34) 02/04/19 06:44 RDW 14.7 % (13.2-15.2) 02/04/19 06:44 Plt Count 197 K/mm3 (140-440) 02/04/19 06:44 Lymph % (Auto) 17.8 % (13.4-35.0) 02/03/19 11:18 [place] % (Auto) 8.3 % (0.0-7.3) H 02/03/19 11:18 Eos % (Auto) 4.8 % (0.0-4.3) H 02/03/19 11:18 Baso % (Auto) 0.6 % (0.0-1.8) 02/03/19 11:18 Lymph # 1.8 K/mm3 (1.2-5.4) 02/03/19 11:18 [place] # 0.8 K/mm3 (0.0-0.8) 02/03/19 11:18 Eos # 0.5 K/mm3 (0.0-0.4) H 02/03/19 11:18 Baso # 0.1 K/mm3 (0.0-0.1) 02/03/19 11:18 Seg Neutrophils % 68.5 % (40.0-70.0) 02/03/19 11:18 Seg Neutrophils # 6.9 K/mm3 (1.8-7.7) 02/03/19 11:18 Sodium 138 mmol/L (137-145) 02/16/19 13:45 Potassium 4.7 mmol/L (3.6-5.0) 02/16/19 13:45 Chloride 104.5 mmol/L (98-107) 02/16/19 13:45 Carbon Dioxide 23 mmol/L (22-30) 02/16/19 13:45 Anion Gap 15 mmol/L 02/16/19 13:45 BUN 23 mg/dL (7-17) H 02/16/19 13:45 Creatinine 1.4 mg/dL (0.7-1.2) H 02/16/19 13:45 Estimated GFR 37 ml/min 02/16/19 13:45 BUN/Creatinine Ratio 16 % 02/16/19 13:45 Glucose 153 mg/dL (65-100) H 02/16/19 13:45 POC Glucose 257 (70-105) H 02/19/19 16:26 Hemoglobin A1c 9.1 % (4-6) H 02/03/19 11:18 Calcium 8.3 mg/dL (8.4-10.2) L 02/16/19 13:45 Total Bilirubin 0.90 mg/dL (0.1-1.2) 02/03/19 11:18 AST 32 units/L (5-40) 02/03/19 11:18 ALT 25 units/L (7-56) 02/03/19 11:18 Alkaline Phosphatase 88 units/L (35-129) 02/03/19 11:18 Total Protein 6.7 g/dL (6.3-8.2) 02/03/19 11:18 Albumin 3.0 g/dL (3.9-5) L 02/03/19 11:18 Albumin/Globulin Ratio 0.8 % 02/03/19 11:18 Triglycerides 315 mg/dL (2-149) H 02/03/19 11:18 Cholesterol 190 mg/dL (50-199) 02/03/19 11:18 LDL Cholesterol Direct 116 mg/dL (50-130) 02/03/19 11:18 HDL Cholesterol 33 mg/dL (40-59) L 02/03/19 11:18 Cholesterol/HDL Ratio 5.75 % 02/03/19 11:18 Urine Color Yellow (Yellow) 02/15/19 15:25 Urine Turbidity Clear (Clear) 02/15/19 15:25 Urine pH 7.0 (5.0-7.0) 02/15/19 15:25 Ur Specific [place] 1.007 (1.003-1.030) 02/15/19 15:25 Urine Protein 100 mg/dl mg/dL (Negative) 02/15/19 15:25 Urine Glucose (UA) >=500 mg/dL (Negative) 02/15/19 15:25 Urine Ketones Neg mg/dL (Negative) 02/15/19 15:25 Urine Blood Sm (Negative) 02/15/19 15:25 Urine Nitrite Neg (Negative) 02/15/19 15:25 Urine Bilirubin Neg (Negative) 02/15/19 15:25 Urine Urobilinogen < 2.0 mg/dL (<2.0) 02/15/19 15:25 Ur Leukocyte Esterase Neg (Negative) 02/15/19 15:25 Urine WBC (Auto) 7.0 /HPF (0.0-6.0) H 02/15/19 15:25 Urine RBC (Auto) 3.0 /HPF (0.0-6.0) 02/15/19 15:25 U Epithel Cells (Auto) < 1.0 /HPF (0-13.0) 02/15/19 15:25 Hyaline Casts 2 /LPF 02/03/19 15:09 Urine Mucus Few /HPF 02/03/19 15:09 Urine Yeast (Budding) 2+ /HPF 02/15/19 15:25 Last Vital Signs Temp 98.8 F 02/18/19 22:00 Pulse 76 02/19/19 15:34 Resp 20 02/18/19 22:00 BP 166/63 02/19/19 15:34 Pulse Ox 97 02/18/19 22:00
--- NOTE | 2019-02-19 17:02 | Progress Note ---
Subjective Date of service: 02/19/19 Principal diagnosis: Severe depression and Anxiety Subjective Comment: The patient is not doing well. Multiple medication adjustment has been made with no significant progress. Per Nursing Note, patient was observed kicking her feet, removing her gown and pulling at her adult brief; she was anxious and agitated, unable to redirect. Alert to self. Hallucinating, stating save my children, reaching for imaginary objects in the air and reaching down, singing ABC's and counting. Patient can be heard yelling and screaming at the nurses station. At 2121, Ativan and Haldol IM given per MD order. MSE Orientation: time, place, person Affect: depressed, anxious Mood: congruent with affect Thought Process: Intact Perceptions: none Speech: normal rate and pattern Concentration: focused Motor activity: normal Level of consciousness: alert Memory: Intact Appetite: WNL Interaction: uncooperative Objective - Criteria for Continued Treatment Criteria for Continued Treatment: Improving Level of Functioning, Improving Emotional/Socia, Decreasing Frequency of Hospitalization - Objective Observation Participation Level: Minimal Reason(s) For Not Participating: Unable Assessment and Plan - Patient Problems (1) MDD (major depressive disorder), recurrent episode, severe Current Visit: Yes Status: Acute Plan to address problem: Patient will be admitted for inpatient psychiatric evaluation, medication adjustment and close monitoring The patient's behavior, mood, sleep and appetite will be closely monitored. Patient will be enrolled in individual and group therapeutic sessions and encouraged to attend. Patient will be provided with a safe and structured environment. Patient's physical health needs will be addressed by the Hospitalist. Social Assessment will be completed and the Dispensing Optician Apprentice will work with patient and family to ensure a suitable and safe disposition Medication adjustment will be made as clinically indicated Will add Gabapentin 300mng tid and Seroquel 150mg qhs. Will decrease and discontinue Risperidone if patient improves with Seroquel. (2) Anxiety disorder, unspecified Current Visit: Yes Status: Acute Plan to address problem: As above Medications and Allergies Allergies Allergy/AdvReac Type Severity Reaction Status Date / Time codeine AdvReac Unknown Verified 02/03/19 03:04 morphine AdvReac Unknown Verified 02/03/19 03:04 Penicillins AdvReac Unknown Verified 02/03/19 03:04 Home Medications Medication Instructions Recorded Confirmed Last Taken Type Hydrocodone-Acetamin 5-300 mg 5 - 325 mg PO BID PRN 02/02/19 02/02/19 Unknown History Insulin NPH Human Isophane 10 units SUB-Q TID 02/02/19 02/02/19 Unknown History [Humulin N] ALPRAZolam [Xanax TAB] 0.5 mg PO BID 02/03/19 02/03/19 Unknown History ARIPiprazole [Abilify TAB] 2 mg PO DAILY 02/03/19 02/03/19 Unknown History Allopurinol [Zyloprim] 300 mg PO DAILY 02/03/19 02/03/19 Unknown History Aspirin 325 mg PO DAILY 02/03/19 02/03/19 Unknown History Atenolol [Tenormin] 50 mg PO DAILY 02/03/19 02/03/19 Unknown History AtorvaSTATin [Lipitor] 40 mg PO HS 02/03/19 02/03/19 Unknown History Clopidogrel [Plavix] 75 mg PO DAILY 02/03/19 02/03/19 Unknown History Escitalopram [Lexapro] 10 mg PO DAILY 02/03/19 02/03/19 Unknown History Fexofenadine HCl 180 mg PO DAILY 02/03/19 02/03/19 Unknown History Insulin Glargine [Lantus VIAL] 30 units SUB-Q HS 02/03/19 02/03/19 Unknown History Insulin Regular, Human [Humulin R] 10 units SUB-Q TID 02/03/19 02/03/19 Unknown History Magnesium Oxide 400 400 mg PO DAILY 02/03/19 02/03/19 Unknown History Montelukast Sodium 10 mg PO DAILY 02/03/19 02/03/19 Unknown History Potassium Chloride [K-Dur] 20 meq PO DAILY 02/03/19 02/03/19 Unknown History Torsemide [Demadex] 20 mg PO DAILY 02/03/19 02/03/19 Unknown History Trazodone HCl 150 mg PO HS 02/03/19 02/03/19 Unknown History amLODIPine [Norvasc] 5 mg PO DAILY 02/03/19 02/03/19 Unknown History Active Meds: Active Medications Acetaminophen (Tylenol) 650 mg PO Q6H PRN PRN Reason: Pain, Mild (1-3) Last Admin: 02/13/19 13:29 Dose: 650 mg Documented by: Allopurinol (Zyloprim) 150 mg PO DAILY [facility] Last Admin: 02/19/19 15:32 Dose: 150 mg Documented by: Alprazolam (Xanax) 0.5 mg PO Q8HR [facility] Last Admin: 02/19/19 15:32 Dose: 0.5 mg Documented by: Amlodipine Besylate (Norvasc) 5 mg PO DAILY [facility] Last Admin: 02/19/19 15:34 Dose: 5 mg Documented by: Aspirin (Aspirin) 325 mg PO DAILY [facility] Last Admin: 02/19/19 15:31 Dose: 325 mg Documented by: Atenolol (Tenormin) 50 mg PO DAILY [facility] Last Admin: 02/19/19 15:33 Dose: 50 mg Documented by: Atorvastatin Calcium (Lipitor) 40 mg PO HS [facility] Last Admin: 02/18/19 21:22 Dose: 40 mg Documented by: Clopidogrel Bisulfate (Plavix) 75 mg PO DAILY [facility] Last Admin: 02/19/19 15:31 Dose: 75 mg Documented by: Dextrose (D50w (25gm) Syringe) 50 ml IV PRN PRN PRN Reason: Hypoglycemia Haloperidol (Haldol) 5 mg PO Q6H PRN PRN Reason: Agitation Last Admin: 02/13/19 21:12 Dose: 5 mg Documented by: Haloperidol Lactate (Haldol) 5 mg IM Q6H PRN PRN Reason: Agitation Last Admin: 02/18/19 21:22 Dose: 5 mg Documented by: Insulin Glargine (Lantus) 20 units SUB-Q [facility] Last Admin: 02/18/19 21:22 Dose: 20 units Documented by: Insulin Human Lispro (Humalog) 0 unit SUB-Q [facility]; Protocol Last Admin: 02/19/19 15:30 Dose: Not Given Documented by: Loratadine (Claritin) 10 mg PO DAILY [facility] Last Admin: 02/19/19 15:32 Dose: 10 mg Documented by: Lorazepam (Ativan) 2 mg IM Q6H PRN PRN Reason: Agitation Last Admin: 02/18/19 21:23 Dose: 2 mg Documented by: Magnesium Oxide (Mag-Ox) 400 mg PO QDAY [facility] Last Admin: 02/19/19 15:30 Dose: 400 mg Documented by: Melatonin (Melatonin) 10 mg PO QPM [facility] Last Admin: 02/18/19 17:50 Dose: 10 mg Documented by: Montelukast Sodium (Singulair) 10 mg PO DAILY [facility] Last Admin: 02/19/19 15:32 Dose: 10 mg Documented by: Pantoprazole Sodium (Protonix) 40 mg PO QDAY [facility] Last Admin: 02/19/19 15:32 Dose: 40 mg Documented by: Polyethylene Glycol (Miralax 3350) 17 gm PO QDAY PRN PRN Reason: Constipation Potassium Chloride (K-Dur) 20 meq PO DAILY [facility] Last Admin: 02/19/19 15:31 Dose: 20 meq Documented by: Risperidone (Risperdal) 2 mg PO QPM [facility] Last Admin: 02/18/19 17:49 Dose: 2 mg Documented by: Trazodone HCl (Desyrel) 50 mg PO QHS [facility] Last Admin: 02/18/19 21:22 Dose: 50 mg Documented by: Results - Results Labs/Vitals: Laboratory Last Values WBC 7.6 K/mm3 (4.5-11.0) 02/04/19 06:44 RBC 4.40 M/mm3 (3.65-5.03) 02/04/19 06:44 Hgb 13.4 gm/dl (10.1-14.3) 02/04/19 06:44 Hct 39.1 % (30.3-42.9) 02/04/19 06:44 MCV 89 fl (79-97) 02/04/19 06:44 MCH 31 pg (28-32) 02/04/19 06:44 MCHC 34 % (30-34) 02/04/19 06:44 RDW 14.7 % (13.2-15.2) 02/04/19 06:44 Plt Count 197 K/mm3 (140-440) 02/04/19 06:44 Lymph % (Auto) 17.8 % (13.4-35.0) 02/03/19 11:18 [place] % (Auto) 8.3 % (0.0-7.3) H 02/03/19 11:18 Eos % (Auto) 4.8 % (0.0-4.3) H 02/03/19 11:18 Baso % (Auto) 0.6 % (0.0-1.8) 02/03/19 11:18 Lymph # 1.8 K/mm3 (1.2-5.4) 02/03/19 11:18 [place] # 0.8 K/mm3 (0.0-0.8) 02/03/19 11:18 Eos # 0.5 K/mm3 (0.0-0.4) H 02/03/19 11:18 Baso # 0.1 K/mm3 (0.0-0.1) 02/03/19 11:18 Seg Neutrophils % 68.5 % (40.0-70.0) 02/03/19 11:18 Seg Neutrophils # 6.9 K/mm3 (1.8-7.7) 02/03/19 11:18 Sodium 138 mmol/L (137-145) 02/16/19 13:45 Potassium 4.7 mmol/L (3.6-5.0) 02/16/19 13:45 Chloride 104.5 mmol/L (98-107) 02/16/19 13:45 Carbon Dioxide 23 mmol/L (22-30) 02/16/19 13:45 Anion Gap 15 mmol/L 02/16/19 13:45 BUN 23 mg/dL (7-17) H 02/16/19 13:45 Creatinine 1.4 mg/dL (0.7-1.2) H 02/16/19 13:45 Estimated GFR 37 ml/min 02/16/19 13:45 BUN/Creatinine Ratio 16 % 02/16/19 13:45 Glucose 153 mg/dL (65-100) H 02/16/19 13:45 POC Glucose 257 (70-105) H 02/19/19 16:26 Hemoglobin A1c 9.1 % (4-6) H 02/03/19 11:18 Calcium 8.3 mg/dL (8.4-10.2) L 02/16/19 13:45 Total Bilirubin 0.90 mg/dL (0.1-1.2) 02/03/19 11:18 AST 32 units/L (5-40) 02/03/19 11:18 ALT 25 units/L (7-56) 02/03/19 11:18 Alkaline Phosphatase 88 units/L (35-129) 02/03/19 11:18 Total Protein 6.7 g/dL (6.3-8.2) 02/03/19 11:18 Albumin 3.0 g/dL (3.9-5) L 02/03/19 11:18 Albumin/Globulin Ratio 0.8 % 02/03/19 11:18 Triglycerides 315 mg/dL (2-149) H 02/03/19 11:18 Cholesterol 190 mg/dL (50-199) 02/03/19 11:18 LDL Cholesterol Direct 116 mg/dL (50-130) 02/03/19 11:18 HDL Cholesterol 33 mg/dL (40-59) L 02/03/19 11:18 Cholesterol/HDL Ratio 5.75 % 02/03/19 11:18 Urine Color Yellow (Yellow) 02/15/19 15:25 Urine Turbidity Clear (Clear) 02/15/19 15:25 Urine pH 7.0 (5.0-7.0) 02/15/19 15:25 Ur Specific [place] 1.007 (1.003-1.030) 02/15/19 15:25 Urine Protein 100 mg/dl mg/dL (Negative) 02/15/19 15:25 Urine Glucose (UA) >=500 mg/dL (Negative) 02/15/19 15:25 Urine Ketones Neg mg/dL (Negative) 02/15/19 15:25 Urine Blood Sm (Negative) 02/15/19 15:25 Urine Nitrite Neg (Negative) 02/15/19 15:25 Urine Bilirubin Neg (Negative) 02/15/19 15:25 Urine Urobilinogen < 2.0 mg/dL (<2.0) 02/15/19 15:25 Ur Leukocyte Esterase Neg (Negative) 02/15/19 15:25 Urine WBC (Auto) 7.0 /HPF (0.0-6.0) H 02/15/19 15:25 Urine RBC (Auto) 3.0 /HPF (0.0-6.0) 02/15/19 15:25 U Epithel Cells (Auto) < 1.0 /HPF (0-13.0) 02/15/19 15:25 Hyaline Casts 2 /LPF 02/03/19 15:09 Urine Mucus Few /HPF 02/03/19 15:09 Urine Yeast (Budding) 2+ /HPF 02/15/19 15:25 Last Vital Signs Temp 98.8 F 02/18/19 22:00 Pulse 76 02/19/19 15:34 Resp 20 02/18/19 22:00 BP 166/63 02/19/19 15:34 Pulse Ox 97 02/18/19 22:00
[2019-02-19] MEDS: RisperDAL PO SCH (18:42)
[2019-02-19] MEDS: MELATONIN PO SCH (18:42)
[2019-02-19] MEDS: NEURONTIN PO SCH (18:47)
[2019-02-19] MEDS: LANTUS SUB-Q SCH (21:05)
[2019-02-19] MEDS: DESYREL PO SCH (21:14)
[2019-02-19] MEDS: HALDOL PO PRN (21:15)
[2019-02-19] MEDS ORDERED: SEROquel 50 MG, SEROquel 100 MG PO SCH (22:00)
[2019-02-20] MEDS: NEURONTIN PO SCH ×3 (02:00→19:00)
[2019-02-20] MEDS: XANAX PO SCH ×3 (06:13→21:51)
[2019-02-20] MEDS: ZYLOPRIM PO SCH (13:25)
[2019-02-20] MEDS: CLARITIN PO SCH (13:27)
[2019-02-20] MEDS: PROTONIX PO SCH (13:27)
[2019-02-20] MEDS: ASPIRIN PO SCH (13:27)
[2019-02-20] MEDS: MAG-OX PO SCH (13:28)
[2019-02-20] MEDS: K-DUR PO SCH (13:28)
[2019-02-20] MEDS: PLAVIX PO SCH (13:28)
[2019-02-20] MEDS: HumaLOG SUB-Q SCH ×3 (13:29→21:50)
[2019-02-20] MEDS: NORVASC PO SCH (13:30)
[2019-02-20] MEDS: TENORMIN PO SCH (13:30)
[2019-02-20] MEDS: SINGULAIR PO SCH (13:31)
--- NOTE | 2019-02-20 14:11 | Progress Note ---
Subjective Date of service: 02/20/19 Principal diagnosis: Severe depression and Anxiety Subjective Comment: The patient is over-sedated today. Will decrease Gabapentin MSE Orientation: time, place, person Affect: depressed, anxious Mood: congruent with affect Thought Process: Intact Perceptions: none Speech: normal rate and pattern Concentration: focused Motor activity: normal Level of consciousness: alert Memory: Intact Appetite: WNL Interaction: uncooperative Objective - Criteria for Continued Treatment Criteria for Continued Treatment: Improving Level of Functioning, Stablizing Level of Functioning, Improving Emotional/Socia - Objective Observation Participation Level: Minimal Assessment and Plan - Patient Problems (1) MDD (major depressive disorder), recurrent episode, severe Current Visit: Yes Status: Acute Plan to address problem: Patient will be admitted for inpatient psychiatric evaluation, medication adjustment and close monitoring The patient's behavior, mood, sleep and appetite will be closely monitored. Patient will be enrolled in individual and group therapeutic sessions and encouraged to attend. Patient will be provided with a safe and structured environment. Patient's physical health needs will be addressed by the Hospitalist. Social Assessment will be completed and the Plating Equipment Tender will work with patient and family to ensure a suitable and safe disposition Medication adjustment will be made as clinically indicated Will decrease Gabapentin to 200mg tid and continue Seroquel 150mg qhs. Will decrease and discontinue Risperidone if patient improves with Seroquel. (2) Anxiety disorder, unspecified Current Visit: Yes Status: Acute Medications and Allergies Allergies Allergy/AdvReac Type Severity Reaction Status Date / Time codeine AdvReac Unknown Verified 02/03/19 03:04 morphine AdvReac Unknown Verified 02/03/19 03:04 Penicillins AdvReac Unknown Verified 02/03/19 03:04 Home Medications Medication Instructions Recorded Confirmed Last Taken Type Hydrocodone-Acetamin 5-300 mg 5 - 325 mg PO BID PRN 02/02/19 02/02/19 Unknown History Insulin NPH Human Isophane 10 units SUB-Q TID 02/02/19 02/02/19 Unknown History [Humulin N] ALPRAZolam [Xanax TAB] 0.5 mg PO BID 02/03/19 02/03/19 Unknown History ARIPiprazole [Abilify TAB] 2 mg PO DAILY 02/03/19 02/03/19 Unknown History Allopurinol [Zyloprim] 300 mg PO DAILY 02/03/19 02/03/19 Unknown History Aspirin 325 mg PO DAILY 02/03/19 02/03/19 Unknown History Atenolol [Tenormin] 50 mg PO DAILY 02/03/19 02/03/19 Unknown History AtorvaSTATin [Lipitor] 40 mg PO HS 02/03/19 02/03/19 Unknown History Clopidogrel [Plavix] 75 mg PO DAILY 02/03/19 02/03/19 Unknown History Escitalopram [Lexapro] 10 mg PO DAILY 02/03/19 02/03/19 Unknown History Fexofenadine HCl 180 mg PO DAILY 02/03/19 02/03/19 Unknown History Insulin Glargine [Lantus VIAL] 30 units SUB-Q HS 02/03/19 02/03/19 Unknown History Insulin Regular, Human [Humulin R] 10 units SUB-Q TID 02/03/19 02/03/19 Unknown History Magnesium Oxide 400 400 mg PO DAILY 02/03/19 02/03/19 Unknown History Montelukast Sodium 10 mg PO DAILY 02/03/19 02/03/19 Unknown History Potassium Chloride [K-Dur] 20 meq PO DAILY 02/03/19 02/03/19 Unknown History Torsemide [Demadex] 20 mg PO DAILY 02/03/19 02/03/19 Unknown History Trazodone HCl 150 mg PO HS 02/03/19 02/03/19 Unknown History amLODIPine [Norvasc] 5 mg PO DAILY 02/03/19 02/03/19 Unknown History Active Meds: Active Medications Acetaminophen (Tylenol) 650 mg PO Q6H PRN PRN Reason: Pain, Mild (1-3) Last Admin: 02/13/19 13:29 Dose: 650 mg Documented by: Allopurinol (Zyloprim) 150 mg PO DAILY [facility] Last Admin: 02/20/19 13:25 Dose: 150 mg Documented by: Alprazolam (Xanax) 0.5 mg PO Q8HR [facility] Last Admin: 02/20/19 13:35 Dose: 0.5 mg Documented by: Amlodipine Besylate (Norvasc) 5 mg PO DAILY [facility] Last Admin: 02/20/19 13:30 Dose: 5 mg Documented by: Aspirin (Aspirin) 325 mg PO DAILY [facility] Last Admin: 02/20/19 13:27 Dose: 325 mg Documented by: Atenolol (Tenormin) 50 mg PO DAILY [facility] Last Admin: 02/20/19 13:30 Dose: 50 mg Documented by: Atorvastatin Calcium (Lipitor) 40 mg PO HS [facility] Last Admin: 02/19/19 21:14 Dose: 40 mg Documented by: Clopidogrel Bisulfate (Plavix) 75 mg PO DAILY [facility] Last Admin: 02/20/19 13:28 Dose: 75 mg Documented by: Dextrose (D50w (25gm) Syringe) 50 ml IV PRN PRN PRN Reason: Hypoglycemia Gabapentin (Neurontin) 300 mg PO Q8H [facility] Last Admin: 02/20/19 13:35 Dose: 300 mg Documented by: Haloperidol (Haldol) 5 mg PO Q6H PRN PRN Reason: Agitation Last Admin: 02/19/19 21:15 Dose: 5 mg Documented by: Haloperidol Lactate (Haldol) 5 mg IM Q6H PRN PRN Reason: Agitation Last Admin: 02/18/19 21:22 Dose: 5 mg Documented by: Insulin Glargine (Lantus) 20 units SUB-Q [facility] Last Admin: 02/19/19 21:05 Dose: 20 units Documented by: Insulin Human Lispro (Humalog) 0 unit SUB-Q [facility]; Protocol Last Admin: 02/20/19 13:29 Dose: Not Given Documented by: Loratadine (Claritin) 10 mg PO DAILY [facility] Last Admin: 02/20/19 13:27 Dose: 10 mg Documented by: Lorazepam (Ativan) 2 mg IM Q6H PRN PRN Reason: Agitation Last Admin: 02/18/19 21:23 Dose: 2 mg Documented by: Magnesium Oxide (Mag-Ox) 400 mg PO QDAY [facility] Last Admin: 02/20/19 13:28 Dose: 400 mg Documented by: Melatonin (Melatonin) 10 mg PO QPM [facility] Last Admin: 02/19/19 18:42 Dose: 10 mg Documented by: Montelukast Sodium (Singulair) 10 mg PO DAILY [facility] Last Admin: 02/20/19 13:31 Dose: 10 mg Documented by: Pantoprazole Sodium (Protonix) 40 mg PO QDAY [facility] Last Admin: 02/20/19 13:27 Dose: 40 mg Documented by: Polyethylene Glycol (Miralax 3350) 17 gm PO QDAY PRN PRN Reason: Constipation Potassium Chloride (K-Dur) 20 meq PO DAILY [facility] Last Admin: 02/20/19 13:28 Dose: 20 meq Documented by: Quetiapine Fumarate (Seroquel) 100 mg PO QHS [facility] Last Admin: 02/19/19 21:15 Dose: 100 mg Documented by: Quetiapine Fumarate (Seroquel) 50 mg PO QHS [facility] Last Admin: 02/19/19 21:14 Dose: 50 mg Documented by: Risperidone (Risperdal) 2 mg PO QPM [facility] Last Admin: 02/19/19 18:42 Dose: 2 mg Documented by: Trazodone HCl (Desyrel) 50 mg PO QHS [facility] Last Admin: 02/19/19 21:14 Dose: 50 mg Documented by: Results - Results Labs/Vitals: Laboratory Last Values WBC 7.6 K/mm3 (4.5-11.0) 02/04/19 06:44 RBC 4.40 M/mm3 (3.65-5.03) 02/04/19 06:44 Hgb 13.4 gm/dl (10.1-14.3) 02/04/19 06:44 Hct 39.1 % (30.3-42.9) 02/04/19 06:44 MCV 89 fl (79-97) 02/04/19 06:44 MCH 31 pg (28-32) 02/04/19 06:44 MCHC 34 % (30-34) 02/04/19 06:44 RDW 14.7 % (13.2-15.2) 02/04/19 06:44 Plt Count 197 K/mm3 (140-440) 02/04/19 06:44 Lymph % (Auto) 17.8 % (13.4-35.0) 02/03/19 11:18 [place] % (Auto) 8.3 % (0.0-7.3) H 02/03/19 11:18 Eos % (Auto) 4.8 % (0.0-4.3) H 02/03/19 11:18 Baso % (Auto) 0.6 % (0.0-1.8) 02/03/19 11:18 Lymph # 1.8 K/mm3 (1.2-5.4) 02/03/19 11:18 [place] # 0.8 K/mm3 (0.0-0.8) 02/03/19 11:18 Eos # 0.5 K/mm3 (0.0-0.4) H 02/03/19 11:18 Baso # 0.1 K/mm3 (0.0-0.1) 02/03/19 11:18 Seg Neutrophils % 68.5 % (40.0-70.0) 02/03/19 11:18 Seg Neutrophils # 6.9 K/mm3 (1.8-7.7) 02/03/19 11:18 Sodium 138 mmol/L (137-145) 02/16/19 13:45 Potassium 4.7 mmol/L (3.6-5.0) 02/16/19 13:45 Chloride 104.5 mmol/L (98-107) 02/16/19 13:45 Carbon Dioxide 23 mmol/L (22-30) 02/16/19 13:45 Anion Gap 15 mmol/L 02/16/19 13:45 BUN 23 mg/dL (7-17) H 02/16/19 13:45 Creatinine 1.4 mg/dL (0.7-1.2) H 02/16/19 13:45 Estimated GFR 37 ml/min 02/16/19 13:45 BUN/Creatinine Ratio 16 % 02/16/19 13:45 Glucose 153 mg/dL (65-100) H 02/16/19 13:45 POC Glucose 108 (70-105) H 02/20/19 11:33 Hemoglobin A1c 9.1 % (4-6) H 02/03/19 11:18 Calcium 8.3 mg/dL (8.4-10.2) L 02/16/19 13:45 Total Bilirubin 0.90 mg/dL (0.1-1.2) 02/03/19 11:18 AST 32 units/L (5-40) 02/03/19 11:18 ALT 25 units/L (7-56) 02/03/19 11:18 Alkaline Phosphatase 88 units/L (35-129) 02/03/19 11:18 Total Protein 6.7 g/dL (6.3-8.2) 02/03/19 11:18 Albumin 3.0 g/dL (3.9-5) L 02/03/19 11:18 Albumin/Globulin Ratio 0.8 % 02/03/19 11:18 Triglycerides 315 mg/dL (2-149) H 02/03/19 11:18 Cholesterol 190 mg/dL (50-199) 02/03/19 11:18 LDL Cholesterol Direct 116 mg/dL (50-130) 02/03/19 11:18 HDL Cholesterol 33 mg/dL (40-59) L 02/03/19 11:18 Cholesterol/HDL Ratio 5.75 % 02/03/19 11:18 Urine Color Yellow (Yellow) 02/15/19 15:25 Urine Turbidity Clear (Clear) 02/15/19 15:25 Urine pH 7.0 (5.0-7.0) 02/15/19 15:25 Ur Specific [place] 1.007 (1.003-1.030) 02/15/19 15:25 Urine Protein 100 mg/dl mg/dL (Negative) 02/15/19 15:25 Urine Glucose (UA) >=500 mg/dL (Negative) 02/15/19 15:25 Urine Ketones Neg mg/dL (Negative) 02/15/19 15:25 Urine Blood Sm (Negative) 02/15/19 15:25 Urine Nitrite Neg (Negative) 02/15/19 15:25 Urine Bilirubin Neg (Negative) 02/15/19 15:25 Urine Urobilinogen < 2.0 mg/dL (<2.0) 02/15/19 15:25 Ur Leukocyte Esterase Neg (Negative) 02/15/19 15:25 Urine WBC (Auto) 7.0 /HPF (0.0-6.0) H 02/15/19 15:25 Urine RBC (Auto) 3.0 /HPF (0.0-6.0) 02/15/19 15:25 U Epithel Cells (Auto) < 1.0 /HPF (0-13.0) 02/15/19 15:25 Hyaline Casts 2 /LPF 02/03/19 15:09 Urine Mucus Few /HPF 02/03/19 15:09 Urine Yeast (Budding) 2+ /HPF 02/15/19 15:25 Last Vital Signs Temp 97.9 F 02/20/19 08:51 Pulse 53 L 02/20/19 13:30 Resp 18 02/20/19 08:51 BP 148/68 02/20/19 13:30 Pulse Ox 94 02/20/19 08:51
[2019-02-20] MEDS: RisperDAL PO SCH (19:00)
[2019-02-20] MEDS: MELATONIN PO SCH (19:00)
[2019-02-20] MEDS: LANTUS SUB-Q SCH (21:50)
[2019-02-20] MEDS: DESYREL PO SCH (21:51)
[2019-02-21] MEDS: XANAX PO SCH ×3 (05:50→21:46)
[2019-02-21] MEDS: NEURONTIN PO SCH ×3 (05:50→21:46)
[2019-02-21] MEDS: HumaLOG SUB-Q SCH ×4 (10:46→22:23)
[2019-02-21 10:52] LABS: Basophils % (Auto) 0.5 % (0.0-1.8); Eosinophils # (Auto) 0.1 K/mm3 (0.0-0.4); Eosinophils % (Auto) 1.2 % (0.0-4.3); Hematocrit 34.9 % (30.3-42.9); Lymphocytes % (Auto) 11.6 % (13.4-35.0); Mean Corpuscular HGB Conc 34 % (30-34); Mean Corpuscular Volume 92 fl (79-97); Monocytes # (Auto) 1.1 K/mm3 (0.0-0.8); Monocytes % (Auto) 13.1 % (0.0-7.3); Platelet Count 210 K/mm3 (140-440); Red Cell Distribution Width 15.1 % (13.2-15.2)
[2019-02-21 11:15] LABS: Albumin 2.7 g/dL (3.9-5); Calcium 8.5 mg/dL (8.4-10.2)
[2019-02-21] MEDS: ZYLOPRIM PO SCH (15:57)
[2019-02-21] MEDS: MAG-OX PO SCH (15:57)
[2019-02-21] MEDS: PROTONIX PO SCH (15:58)
[2019-02-21] MEDS: NORVASC PO SCH (15:58)
[2019-02-21] MEDS: PLAVIX PO SCH (15:59)
[2019-02-21] MEDS: SINGULAIR PO SCH (15:59)
[2019-02-21] MEDS: K-DUR PO SCH (15:59)
[2019-02-21] MEDS: ASPIRIN PO SCH (15:59)
[2019-02-21] MEDS: TENORMIN PO SCH (16:00)
[2019-02-21] MEDS: CLARITIN PO SCH (16:00)
[2019-02-21] MEDS: MELATONIN PO SCH (18:05)
[2019-02-21] MEDS: RisperDAL PO SCH (18:05)
[2019-02-21] MEDS: DESYREL PO SCH (21:45)
[2019-02-21] MEDS: LANTUS SUB-Q SCH (22:22)
[2019-02-22] MEDS: NEURONTIN PO SCH ×4 (05:44→22:16)
[2019-02-22] MEDS: XANAX PO SCH ×3 (05:55→22:17)
[2019-02-22] MEDS: HumaLOG SUB-Q SCH ×3 (11:27→22:00)
[2019-02-22] MEDS: NORVASC PO SCH (12:37)
[2019-02-22] MEDS: CLARITIN PO SCH (12:37)
[2019-02-22] MEDS: PROTONIX PO SCH (12:37)
[2019-02-22] MEDS: ZYLOPRIM PO SCH (12:38)
[2019-02-22] MEDS: K-DUR PO SCH (12:38)
[2019-02-22] MEDS: TENORMIN PO SCH (12:38)
[2019-02-22] MEDS: ASPIRIN PO SCH (12:39)
[2019-02-22] MEDS: MAG-OX PO SCH (12:39)
[2019-02-22] MEDS: PLAVIX PO SCH (12:39)
[2019-02-22] MEDS: SINGULAIR PO SCH (12:39)
--- NOTE | 2019-02-22 16:03 | Progress Note ---
Subjective Date of service: 02/21/19 Principal diagnosis: Severe depression and Anxiety Subjective Comment: The patient continues to be lethargic and over-sedated today. Will continue to taper off medications. MSE Orientation: time, place, person Affect: depressed, anxious Mood: congruent with affect Thought Process: Intact Perceptions: none Speech: normal rate and pattern Concentration: focused Motor activity: normal Level of consciousness: alert Memory: Intact Appetite: WNL Interaction: uncooperative Objective - Criteria for Continued Treatment Criteria for Continued Treatment: Improving Level of Functioning, Stablizing Level of Functioning, Improving Emotional/Socia - Objective Observation Participation Level: Minimal Reason(s) For Not Participating: Unable Assessment and Plan - Patient Problems (1) MDD (major depressive disorder), recurrent episode, severe Current Visit: Yes Status: Acute (2) Anxiety disorder, unspecified Current Visit: Yes Status: Acute Medications and Allergies Allergies Allergy/AdvReac Type Severity Reaction Status Date / Time codeine AdvReac Unknown Verified 02/03/19 03:04 morphine AdvReac Unknown Verified 02/03/19 03:04 Penicillins AdvReac Unknown Verified 02/03/19 03:04 Home Medications Medication Instructions Recorded Confirmed Last Taken Type Hydrocodone-Acetamin 5-300 mg 5 - 325 mg PO BID PRN 02/02/19 02/02/19 Unknown History Insulin NPH Human Isophane 10 units SUB-Q TID 02/02/19 02/02/19 Unknown History [Humulin N] ALPRAZolam [Xanax TAB] 0.5 mg PO BID 02/03/19 02/03/19 Unknown History ARIPiprazole [Abilify TAB] 2 mg PO DAILY 02/03/19 02/03/19 Unknown History Allopurinol [Zyloprim] 300 mg PO DAILY 02/03/19 02/03/19 Unknown History Aspirin 325 mg PO DAILY 02/03/19 02/03/19 Unknown History Atenolol [Tenormin] 50 mg PO DAILY 02/03/19 02/03/19 Unknown History AtorvaSTATin [Lipitor] 40 mg PO HS 02/03/19 02/03/19 Unknown History Clopidogrel [Plavix] 75 mg PO DAILY 02/03/19 02/03/19 Unknown History Escitalopram [Lexapro] 10 mg PO DAILY 02/03/19 02/03/19 Unknown History Fexofenadine HCl 180 mg PO DAILY 02/03/19 02/03/19 Unknown History Insulin Glargine [Lantus VIAL] 30 units SUB-Q HS 02/03/19 02/03/19 Unknown History Insulin Regular, Human [Humulin R] 10 units SUB-Q TID 02/03/19 02/03/19 Unknown History Magnesium Oxide 400 400 mg PO DAILY 02/03/19 02/03/19 Unknown History Montelukast Sodium 10 mg PO DAILY 02/03/19 02/03/19 Unknown History Potassium Chloride [K-Dur] 20 meq PO DAILY 02/03/19 02/03/19 Unknown History Torsemide [Demadex] 20 mg PO DAILY 02/03/19 02/03/19 Unknown History Trazodone HCl 150 mg PO HS 02/03/19 02/03/19 Unknown History amLODIPine [Norvasc] 5 mg PO DAILY 02/03/19 02/03/19 Unknown History Active Meds: Active Medications Acetaminophen (Tylenol) 650 mg PO Q6H PRN PRN Reason: Pain, Mild (1-3) Last Admin: 02/13/19 13:29 Dose: 650 mg Documented by: Allopurinol (Zyloprim) 150 mg PO DAILY [facility] Last Admin: 02/22/19 12:38 Dose: 150 mg Documented by: Alprazolam (Xanax) 0.5 mg PO Q8HR [facility] Last Admin: 02/22/19 14:41 Dose: Not Given Documented by: Amlodipine Besylate (Norvasc) 5 mg PO DAILY [facility] Last Admin: 02/22/19 12:37 Dose: 5 mg Documented by: Aspirin (Aspirin) 325 mg PO DAILY [facility] Last Admin: 02/22/19 12:39 Dose: 325 mg Documented by: Atenolol (Tenormin) 50 mg PO DAILY [facility] Last Admin: 02/22/19 12:38 Dose: 50 mg Documented by: Atorvastatin Calcium (Lipitor) 40 mg PO [facility] Last Admin: 02/21/19 21:46 Dose: 40 mg Documented by: Clopidogrel Bisulfate (Plavix) 75 mg PO DAILY [facility] Last Admin: 02/22/19 12:39 Dose: 75 mg Documented by: Dextrose (D50w (25gm) Syringe) 50 ml IV PRN PRN PRN Reason: Hypoglycemia Gabapentin (Neurontin) 300 mg PO Q8HR [facility] Last Admin: 02/22/19 14:40 Dose: 300 mg Documented by: Haloperidol (Haldol) 5 mg PO Q6H PRN PRN Reason: Agitation Last Admin: 02/19/19 21:15 Dose: 5 mg Documented by: Haloperidol Lactate (Haldol) 5 mg IM Q6H PRN PRN Reason: Agitation Last Admin: 02/18/19 21:22 Dose: 5 mg Documented by: Insulin Glargine (Lantus) 20 units SUB-Q HS [facility] Last Admin: 02/21/19 22:22 Dose: 20 units Documented by: Insulin Human Lispro (Humalog) 0 unit SUB-Q [facility] REPLACED BY [facility]; Protocol Last Admin: 02/22/19 11:27 Dose: Not Given Documented by: Loratadine (Claritin) 10 mg PO DAILY [facility] Last Admin: 02/22/19 12:37 Dose: 10 mg Documented by: Lorazepam (Ativan) 2 mg IM Q6H PRN PRN Reason: Agitation Last Admin: 02/18/19 21:23 Dose: 2 mg Documented by: Magnesium Oxide (Mag-Ox) 400 mg PO QDAY [facility] Last Admin: 02/22/19 12:39 Dose: 400 mg Documented by: Melatonin (Melatonin) 10 mg PO QPM [facility] Last Admin: 02/21/19 18:05 Dose: 10 mg Documented by: Montelukast Sodium (Singulair) 10 mg PO DAILY [facility] Last Admin: 02/22/19 12:39 Dose: 10 mg Documented by: Pantoprazole Sodium (Protonix) 40 mg PO QDAY [facility] Last Admin: 02/22/19 12:37 Dose: 40 mg Documented by: Polyethylene Glycol (Miralax 3350) 17 gm PO QDAY PRN PRN Reason: Constipation Potassium Chloride (K-Dur) 20 meq PO DAILY [facility] Last Admin: 02/22/19 12:38 Dose: 20 meq Documented by: Quetiapine Fumarate (Seroquel) 100 mg PO QHS [facility] Last Admin: 02/21/19 21:46 Dose: 100 mg Documented by: Quetiapine Fumarate (Seroquel) 50 mg PO QHS [facility] Last Admin: 02/21/19 21:46 Dose: 50 mg Documented by: Risperidone (Risperdal) 2 mg PO QPM [facility] Last Admin: 02/21/19 18:05 Dose: 2 mg Documented by: Trazodone HCl (Desyrel) 50 mg PO QHS [facility] Last Admin: 02/21/19 21:45 Dose: 50 mg Documented by: Results - Results Labs/Vitals: Laboratory Last Values WBC 8.6 K/mm3 (4.5-11.0) 02/21/19 10:20 RBC 3.80 M/mm3 (3.65-5.03) 02/21/19 10:20 Hgb 12.0 gm/dl (10.1-14.3) 02/21/19 10:20 Hct 34.9 % (30.3-42.9) 02/21/19 10:20 MCV 92 fl (79-97) 02/21/19 10:20 MCH 32 pg (28-32) 02/21/19 10:20 MCHC 34 % (30-34) 02/21/19 10:20 RDW 15.1 % (13.2-15.2) 02/21/19 10:20 Plt Count 210 K/mm3 (140-440) 02/21/19 10:20 Lymph % (Auto) 11.6 % (13.4-35.0) L 02/21/19 10:20 [place] % (Auto) 13.1 % (0.0-7.3) H 02/21/19 10:20 Eos % (Auto) 1.2 % (0.0-4.3) 02/21/19 10:20 Baso % (Auto) 0.5 % (0.0-1.8) 02/21/19 10:20 Lymph # 1.0 K/mm3 (1.2-5.4) L 02/21/19 10:20 [place] # 1.1 K/mm3 (0.0-0.8) H 02/21/19 10:20 Eos # 0.1 K/mm3 (0.0-0.4) 02/21/19 10:20 Baso # 0.0 K/mm3 (0.0-0.1) 02/21/19 10:20 Seg Neutrophils % 73.6 % (40.0-70.0) H 02/21/19 10:20 Seg Neutrophils # 6.4 K/mm3 (1.8-7.7) 02/21/19 10:20 Sodium 141 mmol/L (137-145) 02/21/19 10:20 Potassium 4.7 mmol/L (3.6-5.0) 02/21/19 10:20 Chloride 105.2 mmol/L (98-107) 02/21/19 10:20 Carbon Dioxide 20 mmol/L (22-30) L 02/21/19 10:20 Anion Gap 21 mmol/L 02/21/19 10:20 BUN 27 mg/dL (7-17) H 02/21/19 10:20 Creatinine 1.8 mg/dL (0.7-1.2) H 02/21/19 10:20 Estimated GFR 27 ml/min 02/21/19 10:20 BUN/Creatinine Ratio 15 % 02/21/19 10:20 Glucose 159 mg/dL (65-100) H 02/21/19 10:20 POC Glucose 114 (70-105) H 02/22/19 11:21 Hemoglobin A1c 9.1 % (4-6) H 02/03/19 11:18 Calcium 8.5 mg/dL (8.4-10.2) 02/21/19 10:20 Total Bilirubin 0.80 mg/dL (0.1-1.2) 02/21/19 10:20 AST 82 units/L (5-40) H 02/21/19 10:20 ALT 46 units/L (7-56) 02/21/19 10:20 Alkaline Phosphatase 145 units/L (35-129) H 02/21/19 10:20 Total Protein 5.8 g/dL (6.3-8.2) L 02/21/19 10:20 Albumin 2.7 g/dL (3.9-5) L 02/21/19 10:20 Albumin/Globulin Ratio 0.9 % 02/21/19 10:20 Triglycerides 315 mg/dL (2-149) H 02/03/19 11:18 Cholesterol 190 mg/dL (50-199) 02/03/19 11:18 LDL Cholesterol Direct 116 mg/dL (50-130) 02/03/19 11:18 HDL Cholesterol 33 mg/dL (40-59) L 02/03/19 11:18 Cholesterol/HDL Ratio 5.75 % 02/03/19 11:18 Urine Color Yellow (Yellow) 02/15/19 15:25 Urine Turbidity Clear (Clear) 02/15/19 15:25 Urine pH 7.0 (5.0-7.0) 02/15/19 15:25 Ur Specific [place] 1.007 (1.003-1.030) 02/15/19 15:25 Urine Protein 100 mg/dl mg/dL (Negative) 02/15/19 15:25 Urine Glucose (UA) >=500 mg/dL (Negative) 02/15/19 15:25 Urine Ketones Neg mg/dL (Negative) 02/15/19 15:25 Urine Blood Sm (Negative) 02/15/19 15:25 Urine Nitrite Neg (Negative) 02/15/19 15:25 Urine Bilirubin Neg (Negative) 02/15/19 15:25 Urine Urobilinogen < 2.0 mg/dL (<2.0) 02/15/19 15:25 Ur Leukocyte Esterase Neg (Negative) 02/15/19 15:25 Urine WBC (Auto) 7.0 /HPF (0.0-6.0) H 02/15/19 15:25 Urine RBC (Auto) 3.0 /HPF (0.0-6.0) 02/15/19 15:25 U Epithel Cells (Auto) < 1.0 /HPF (0-13.0) 02/15/19 15:25 Hyaline Casts 2 /LPF 02/03/19 15:09 Urine Mucus Few /HPF 02/03/19 15:09 Urine Yeast (Budding) 2+ /HPF 02/15/19 15:25 Last Vital Signs Temp 98.1 F 02/22/19 10:25 Pulse 72 02/22/19 12:38 Resp 20 02/22/19 10:25 BP 144/61 02/22/19 12:38 Pulse Ox 94 02/22/19 10:25
--- NOTE | 2019-02-22 16:05 | Progress Note ---
Subjective Date of service: 02/22/19 Principal diagnosis: Severe depression and Anxiety Subjective Comment: The patient continues to be lethargic and over-sedated today. Will continue to taper off medications. MSE Orientation: time, place, person Affect: depressed, anxious Mood: congruent with affect Thought Process: Intact Perceptions: none Speech: normal rate and pattern Concentration: focused Motor activity: normal Level of consciousness: alert Memory: Intact Appetite: WNL Interaction: uncooperative Objective - Criteria for Continued Treatment Criteria for Continued Treatment: Improving Level of Functioning, Stablizing Level of Functioning, Improving Emotional/Socia - Objective Observation Participation Level: Minimal Assessment and Plan - Patient Problems (1) MDD (major depressive disorder), recurrent episode, severe Current Visit: Yes Status: Acute Plan to address problem: Patient will be admitted for inpatient psychiatric evaluation, medication adjustment and close monitoring The patient's behavior, mood, sleep and appetite will be closely monitored. Patient will be enrolled in individual and group therapeutic sessions and encouraged to attend. Patient will be provided with a safe and structured environment. Patient's physical health needs will be addressed by the Hospitalist. Social Assessment will be completed and the [facility]or will work with patient and family to ensure a suitable and safe disposition Medication adjustment will be made as clinically indicated Will decrease Gabapentin to 100mg tid and continue Seroquel 150mg qhs. Will decrease and discontinue Risperidone if patient improves with Seroquel. (2) Anxiety disorder, unspecified Current Visit: Yes Status: Acute Plan to address problem: As above Medications and Allergies Allergies Allergy/AdvReac Type Severity Reaction Status Date / Time codeine AdvReac Unknown Verified 02/03/19 03:04 morphine AdvReac Unknown Verified 02/03/19 03:04 Penicillins AdvReac Unknown Verified 02/03/19 03:04 Home Medications Medication Instructions Recorded Confirmed Last Taken Type Hydrocodone-Acetamin 5-300 mg 5 - 325 mg PO BID PRN 02/02/19 02/02/19 Unknown History Insulin NPH Human Isophane 10 units SUB-Q TID 02/02/19 02/02/19 Unknown History [Humulin N] ALPRAZolam [Xanax TAB] 0.5 mg PO BID 02/03/19 02/03/19 Unknown History ARIPiprazole [Abilify TAB] 2 mg PO DAILY 02/03/19 02/03/19 Unknown History Allopurinol [Zyloprim] 300 mg PO DAILY 02/03/19 02/03/19 Unknown History Aspirin 325 mg PO DAILY 02/03/19 02/03/19 Unknown History Atenolol [Tenormin] 50 mg PO DAILY 02/03/19 02/03/19 Unknown History AtorvaSTATin [Lipitor] 40 mg PO HS 02/03/19 02/03/19 Unknown History Clopidogrel [Plavix] 75 mg PO DAILY 02/03/19 02/03/19 Unknown History Escitalopram [Lexapro] 10 mg PO DAILY 02/03/19 02/03/19 Unknown History Fexofenadine HCl 180 mg PO DAILY 02/03/19 02/03/19 Unknown History Insulin Glargine [Lantus VIAL] 30 units SUB-Q HS 02/03/19 02/03/19 Unknown History Insulin Regular, Human [Humulin R] 10 units SUB-Q TID 02/03/19 02/03/19 Unknown History Magnesium Oxide 400 400 mg PO DAILY 02/03/19 02/03/19 Unknown History Montelukast Sodium 10 mg PO DAILY 02/03/19 02/03/19 Unknown History Potassium Chloride [K-Dur] 20 meq PO DAILY 02/03/19 02/03/19 Unknown History Torsemide [Demadex] 20 mg PO DAILY 02/03/19 02/03/19 Unknown History Trazodone HCl 150 mg PO HS 02/03/19 02/03/19 Unknown History amLODIPine [Norvasc] 5 mg PO DAILY 02/03/19 02/03/19 Unknown History Active Meds: Active Medications Acetaminophen (Tylenol) 650 mg PO Q6H PRN PRN Reason: Pain, Mild (1-3) Last Admin: 02/13/19 13:29 Dose: 650 mg Documented by: Allopurinol (Zyloprim) 150 mg PO DAILY [facility] Last Admin: 02/22/19 12:38 Dose: 150 mg Documented by: Alprazolam (Xanax) 0.5 mg PO Q8HR [facility] Last Admin: 02/22/19 14:41 Dose: Not Given Documented by: Amlodipine Besylate (Norvasc) 5 mg PO DAILY [facility] Last Admin: 02/22/19 12:37 Dose: 5 mg Documented by: Aspirin (Aspirin) 325 mg PO DAILY [facility] Last Admin: 02/22/19 12:39 Dose: 325 mg Documented by: Atenolol (Tenormin) 50 mg PO DAILY [facility] Last Admin: 02/22/19 12:38 Dose: 50 mg Documented by: Atorvastatin Calcium (Lipitor) 40 mg PO HS [facility] Last Admin: 02/21/19 21:46 Dose: 40 mg Documented by: Clopidogrel Bisulfate (Plavix) 75 mg PO DAILY [facility] Last Admin: 02/22/19 12:39 Dose: 75 mg Documented by: Dextrose (D50w (25gm) Syringe) 50 ml IV PRN PRN PRN Reason: Hypoglycemia Gabapentin (Neurontin) 300 mg PO Q8HR [facility] Last Admin: 02/22/19 14:40 Dose: 300 mg Documented by: Haloperidol (Haldol) 5 mg PO Q6H PRN PRN Reason: Agitation Last Admin: 02/19/19 21:15 Dose: 5 mg Documented by: Haloperidol Lactate (Haldol) 5 mg IM Q6H PRN PRN Reason: Agitation Last Admin: 02/18/19 21:22 Dose: 5 mg Documented by: Insulin Glargine (Lantus) 20 units SUB-Q [facility] Last Admin: 02/21/19 22:22 Dose: 20 units Documented by: Insulin Human Lispro (Humalog) 0 unit SUB-Q [facility]; Protocol Last Admin: 02/22/19 11:27 Dose: Not Given Documented by: Loratadine (Claritin) 10 mg PO DAILY [facility] Last Admin: 02/22/19 12:37 Dose: 10 mg Documented by: Lorazepam (Ativan) 2 mg IM Q6H PRN PRN Reason: Agitation Last Admin: 02/18/19 21:23 Dose: 2 mg Documented by: Magnesium Oxide (Mag-Ox) 400 mg PO QDAY [facility] Last Admin: 02/22/19 12:39 Dose: 400 mg Documented by: Melatonin (Melatonin) 10 mg PO QPM [facility] Last Admin: 02/21/19 18:05 Dose: 10 mg Documented by: Montelukast Sodium (Singulair) 10 mg PO DAILY [facility] Last Admin: 02/22/19 12:39 Dose: 10 mg Documented by: Pantoprazole Sodium (Protonix) 40 mg PO QDAY [facility] Last Admin: 02/22/19 12:37 Dose: 40 mg Documented by: Polyethylene Glycol (Miralax 3350) 17 gm PO QDAY PRN PRN Reason: Constipation Potassium Chloride (K-Dur) 20 meq PO DAILY [facility] Last Admin: 02/22/19 12:38 Dose: 20 meq Documented by: Quetiapine Fumarate (Seroquel) 100 mg PO QHS [facility] Last Admin: 02/21/19 21:46 Dose: 100 mg Documented by: Quetiapine Fumarate (Seroquel) 50 mg PO QHS [facility] Last Admin: 02/21/19 21:46 Dose: 50 mg Documented by: Risperidone (Risperdal) 2 mg PO QPM [facility] Last Admin: 02/21/19 18:05 Dose: 2 mg Documented by: Trazodone HCl (Desyrel) 50 mg PO QHS [facility] Last Admin: 02/21/19 21:45 Dose: 50 mg Documented by: Results - Results Labs/Vitals: Laboratory Last Values WBC 8.6 K/mm3 (4.5-11.0) 02/21/19 10:20 RBC 3.80 M/mm3 (3.65-5.03) 02/21/19 10:20 Hgb 12.0 gm/dl (10.1-14.3) 02/21/19 10:20 Hct 34.9 % (30.3-42.9) 02/21/19 10:20 MCV 92 fl (79-97) 02/21/19 10:20 MCH 32 pg (28-32) 02/21/19 10:20 MCHC 34 % (30-34) 02/21/19 10:20 RDW 15.1 % (13.2-15.2) 02/21/19 10:20 Plt Count 210 K/mm3 (140-440) 02/21/19 10:20 Lymph % (Auto) 11.6 % (13.4-35.0) L 02/21/19 10:20 [place] % (Auto) 13.1 % (0.0-7.3) H 02/21/19 10:20 Eos % (Auto) 1.2 % (0.0-4.3) 02/21/19 10:20 Baso % (Auto) 0.5 % (0.0-1.8) 02/21/19 10:20 Lymph # 1.0 K/mm3 (1.2-5.4) L 02/21/19 10:20 [place] # 1.1 K/mm3 (0.0-0.8) H 02/21/19 10:20 Eos # 0.1 K/mm3 (0.0-0.4) 02/21/19 10:20 Baso # 0.0 K/mm3 (0.0-0.1) 02/21/19 10:20 Seg Neutrophils % 73.6 % (40.0-70.0) H 02/21/19 10:20 Seg Neutrophils # 6.4 K/mm3 (1.8-7.7) 02/21/19 10:20 Sodium 141 mmol/L (137-145) 02/21/19 10:20 Potassium 4.7 mmol/L (3.6-5.0) 02/21/19 10:20 Chloride 105.2 mmol/L (98-107) 02/21/19 10:20 Carbon Dioxide 20 mmol/L (22-30) L 02/21/19 10:20 Anion Gap 21 mmol/L 02/21/19 10:20 BUN 27 mg/dL (7-17) H 02/21/19 10:20 Creatinine 1.8 mg/dL (0.7-1.2) H 02/21/19 10:20 Estimated GFR 27 ml/min 02/21/19 10:20 BUN/Creatinine Ratio 15 % 02/21/19 10:20 Glucose 159 mg/dL (65-100) H 02/21/19 10:20 POC Glucose 114 (70-105) H 02/22/19 11:21 Hemoglobin A1c 9.1 % (4-6) H 02/03/19 11:18 Calcium 8.5 mg/dL (8.4-10.2) 02/21/19 10:20 Total Bilirubin 0.80 mg/dL (0.1-1.2) 02/21/19 10:20 AST 82 units/L (5-40) H 02/21/19 10:20 ALT 46 units/L (7-56) 02/21/19 10:20 Alkaline Phosphatase 145 units/L (35-129) H 02/21/19 10:20 Total Protein 5.8 g/dL (6.3-8.2) L 02/21/19 10:20 Albumin 2.7 g/dL (3.9-5) L 02/21/19 10:20 Albumin/Globulin Ratio 0.9 % 02/21/19 10:20 Triglycerides 315 mg/dL (2-149) H 02/03/19 11:18 Cholesterol 190 mg/dL (50-199) 02/03/19 11:18 LDL Cholesterol Direct 116 mg/dL (50-130) 02/03/19 11:18 HDL Cholesterol 33 mg/dL (40-59) L 02/03/19 11:18 Cholesterol/HDL Ratio 5.75 % 02/03/19 11:18 Urine Color Yellow (Yellow) 02/15/19 15:25 Urine Turbidity Clear (Clear) 02/15/19 15:25 Urine pH 7.0 (5.0-7.0) 02/15/19 15:25 Ur Specific [place] 1.007 (1.003-1.030) 02/15/19 15:25 Urine Protein 100 mg/dl mg/dL (Negative) 02/15/19 15:25 Urine Glucose (UA) >=500 mg/dL (Negative) 02/15/19 15:25 Urine Ketones Neg mg/dL (Negative) 02/15/19 15:25 Urine Blood Sm (Negative) 02/15/19 15:25 Urine Nitrite Neg (Negative) 02/15/19 15:25 Urine Bilirubin Neg (Negative) 02/15/19 15:25 Urine Urobilinogen < 2.0 mg/dL (<2.0) 02/15/19 15:25 Ur Leukocyte Esterase Neg (Negative) 02/15/19 15:25 Urine WBC (Auto) 7.0 /HPF (0.0-6.0) H 02/15/19 15:25 Urine RBC (Auto) 3.0 /HPF (0.0-6.0) 02/15/19 15:25 U Epithel Cells (Auto) < 1.0 /HPF (0-13.0) 02/15/19 15:25 Hyaline Casts 2 /LPF 02/03/19 15:09 Urine Mucus Few /HPF 02/03/19 15:09 Urine Yeast (Budding) 2+ /HPF 02/15/19 15:25 Last Vital Signs Temp 98.1 F 02/22/19 10:25 Pulse 72 02/22/19 12:38 Resp 20 02/22/19 10:25 BP 144/61 02/22/19 12:38 Pulse Ox 94 02/22/19 10:25
[2019-02-22] MEDS ORDERED: NEURONTIN PO SCH (16:06)
--- NOTE | 2019-02-22 16:15 | Consultation ---
History of Present Illness - Reason for Consult Consult date: 02/22/19 Change in Medical Condition Requesting physician: LLOYD PRIEST - History of Present Illness 74 YO Female with HTN, Gout, HLD, CAD S/P CABG, Atrial Fib not on anticoagulation, CVA, Dementia, Depression, DM, Obesity Admitted to [facility] S/P Drug Overdose, and Suicide Attempt. Consult placed for change in medical condition. Pt seen and evaluated in her room. Pt found to be lethargic likely secondary to multiple sedating medications. Pt nurse reports no neurologic deficits, only that the patient is difficult to arouse. Pt is lethargic but has a positive gag reflex, and in able to protect her airway. Past History Past Medical History: arthritis, diabetes, hypertension Past Surgical History: CABG, hysterectomy, total knee replacement, Other (Spine surgery) Social history: , lives with family (completed 7th grade ed, retired, no legal problems , has access to guns at home. ) Family history: diabetes, hypertension Medications and Allergies Allergies Allergy/AdvReac Type Severity Reaction Status Date / Time codeine AdvReac Unknown Verified 02/03/19 03:04 morphine AdvReac Unknown Verified 02/03/19 03:04 Penicillins AdvReac Unknown Verified 02/03/19 03:04 Home Medications Medication Instructions Recorded Confirmed Last Taken Type Hydrocodone-Acetamin 5-300 mg 5 - 325 mg PO BID PRN 02/02/19 02/02/19 Unknown History Insulin NPH Human Isophane 10 units SUB-Q TID 02/02/19 02/02/19 Unknown History [Humulin N] ALPRAZolam [Xanax TAB] 0.5 mg PO BID 02/03/19 02/03/19 Unknown History ARIPiprazole [Abilify TAB] 2 mg PO DAILY 02/03/19 02/03/19 Unknown History Allopurinol [Zyloprim] 300 mg PO DAILY 02/03/19 02/03/19 Unknown History Aspirin 325 mg PO DAILY 02/03/19 02/03/19 Unknown History Atenolol [Tenormin] 50 mg PO DAILY 02/03/19 02/03/19 Unknown History AtorvaSTATin [Lipitor] 40 mg PO HS 02/03/19 02/03/19 Unknown History Clopidogrel [Plavix] 75 mg PO DAILY 02/03/19 02/03/19 Unknown History Escitalopram [Lexapro] 10 mg PO DAILY 02/03/19 02/03/19 Unknown History Fexofenadine HCl 180 mg PO DAILY 02/03/19 02/03/19 Unknown History Insulin Glargine [Lantus VIAL] 30 units SUB-Q HS 02/03/19 02/03/19 Unknown History Insulin Regular, Human [Humulin R] 10 units SUB-Q TID 02/03/19 02/03/19 Unknown History Magnesium Oxide 400 400 mg PO DAILY 02/03/19 02/03/19 Unknown History Montelukast Sodium 10 mg PO DAILY 02/03/19 02/03/19 Unknown History Potassium Chloride [K-Dur] 20 meq PO DAILY 02/03/19 02/03/19 Unknown History Torsemide [Demadex] 20 mg PO DAILY 02/03/19 02/03/19 Unknown History Trazodone HCl 150 mg PO HS 02/03/19 02/03/19 Unknown History amLODIPine [Norvasc] 5 mg PO DAILY 02/03/19 02/03/19 Unknown History Active Meds: Active Medications Acetaminophen (Tylenol) 650 mg PO Q6H PRN PRN Reason: Pain, Mild (1-3) Last Admin: 02/13/19 13:29 Dose: 650 mg Documented by: Allopurinol (Zyloprim) 150 mg PO DAILY [facility] Last Admin: 02/22/19 12:38 Dose: 150 mg Documented by: Alprazolam (Xanax) 0.5 mg PO Q8HR [facility] Last Admin: 02/22/19 14:41 Dose: Not Given Documented by: Amlodipine Besylate (Norvasc) 5 mg PO DAILY [facility] Last Admin: 02/22/19 12:37 Dose: 5 mg Documented by: Aspirin (Aspirin) 325 mg PO DAILY [facility] Last Admin: 02/22/19 12:39 Dose: 325 mg Documented by: Atenolol (Tenormin) 50 mg PO DAILY [facility] Last Admin: 02/22/19 12:38 Dose: 50 mg Documented by: Atorvastatin Calcium (Lipitor) 40 mg PO HS [facility] Last Admin: 02/21/19 21:46 Dose: 40 mg Documented by: Clopidogrel Bisulfate (Plavix) 75 mg PO DAILY [facility] Last Admin: 02/22/19 12:39 Dose: 75 mg Documented by: Dextrose (D50w (25gm) Syringe) 50 ml IV PRN PRN PRN Reason: Hypoglycemia Gabapentin (Neurontin) 100 mg PO Q8HR [facility] Haloperidol (Haldol) 5 mg PO Q6H PRN PRN Reason: Agitation Last Admin: 02/19/19 21:15 Dose: 5 mg Documented by: Haloperidol Lactate (Haldol) 5 mg IM Q6H PRN PRN Reason: Agitation Last Admin: 02/18/19 21:22 Dose: 5 mg Documented by: Insulin Glargine (Lantus) 20 units SUB-Q [facility] Last Admin: 02/21/19 22:22 Dose: 20 units Documented by: Insulin Human Lispro (Humalog) 0 unit SUB-Q [facility]; Protocol Last Admin: 02/22/19 11:27 Dose: Not Given Documented by: Loratadine (Claritin) 10 mg PO DAILY [facility] Last Admin: 02/22/19 12:37 Dose: 10 mg Documented by: Lorazepam (Ativan) 2 mg IM Q6H PRN PRN Reason: Agitation Last Admin: 02/18/19 21:23 Dose: 2 mg Documented by: Magnesium Oxide (Mag-Ox) 400 mg PO QDAY [facility] Last Admin: 02/22/19 12:39 Dose: 400 mg Documented by: Melatonin (Melatonin) 10 mg PO QPM [facility] Last Admin: 02/21/19 18:05 Dose: 10 mg Documented by: Montelukast Sodium (Singulair) 10 mg PO DAILY [facility] Last Admin: 02/22/19 12:39 Dose: 10 mg Documented by: Pantoprazole Sodium (Protonix) 40 mg PO QDAY [facility] Last Admin: 02/22/19 12:37 Dose: 40 mg Documented by: Polyethylene Glycol (Miralax 3350) 17 gm PO QDAY PRN PRN Reason: Constipation Potassium Chloride (K-Dur) 20 meq PO DAILY [facility] Last Admin: 02/22/19 12:38 Dose: 20 meq Documented by: Quetiapine Fumarate (Seroquel) 100 mg PO QHS [facility] Last Admin: 02/21/19 21:46 Dose: 100 mg Documented by: Quetiapine Fumarate (Seroquel) 50 mg PO QHS [facility] Last Admin: 02/21/19 21:46 Dose: 50 mg Documented by: Risperidone (Risperdal) 2 mg PO QPM [facility] Last Admin: 02/21/19 18:05 Dose: 2 mg Documented by: Trazodone HCl (Desyrel) 50 mg PO QHS [facility] Last Admin: 02/21/19 21:45 Dose: 50 mg Documented by: Review of Systems ROS unobtainable: due to mental status Exam - Constitutional Vitals: Temp Pulse Resp BP Pulse Ox 98.1 F 72 20 144/61 94 02/22/19 10:25 02/22/19 12:38 02/22/19 10:25 02/22/19 12:38 02/22/19 10:25 General appearance: Present: no acute distress, obese - EENT Eyes: Present: PERRL, miosis ENT: hearing intact, clear oral mucosa - Neck Neck: Present: supple, normal ROM - Respiratory Respiratory effort: normal Respiratory: bilateral: CTA - Cardiovascular Heart Sounds: Present: S1 & S2. Absent: rub, click - Extremities Extremities: pulses symmetrical, No edema Peripheral Pulses: within normal limits - Abdominal General gastrointestinal: Present: soft, non-tender, non-distended, normal bowel sounds Female genitourinary: Present: normal - Integumentary Integumentary: Present: clear, warm, dry - Musculoskeletal Musculoskeletal: generalized weakness - Psychiatric Psychiatric: no appropriate mood/affect, no intact judgment & insight, no memory intact - Neurologic Neurologic: no focal deficits, no gait normal Results - Labs CBC & Chem 7: 02/21/19 10:20 02/21/19 10:20 Labs: Abnormal lab results 02/21/19 02/21/19 02/22/19 Range/Units 16:47 19:43 06:39 POC Glucose 175 H 182 H 169 H (70-105) 02/22/19 Range/Units 11:21 POC Glucose 114 H (70-105) Assessment and Plan - Patient Problems (1) Lethargic Current Visit: Yes Status: Acute Plan to address problem: Suspected to multiple sedating medication. No focal neurologic deficit suggestive of recurrent CVA. Recommend neuro checks Q4hrs x72 hrs, seizure precautions, aspiration precautions, and hold all sedating medication. CT head without contrast if signs of neuro deficit, or mental status changes while not taking sedating medication.
[2019-02-22] MEDS: MELATONIN PO SCH (17:07)
[2019-02-22] MEDS: RisperDAL PO SCH (17:18)
[2019-02-22] MEDS: DESYREL PO SCH (22:15)
[2019-02-23] MEDS: LANTUS SUB-Q SCH ×2 (00:03→21:21)
[2019-02-23] MEDS: NEURONTIN PO SCH ×3 (06:04→21:52)
[2019-02-23] MEDS: XANAX PO SCH ×3 (06:04→21:52)
--- NOTE | 2019-02-23 07:22 | Progress Note ---
Subjective Date of service: 02/23/19 Principal diagnosis: Severe depression and Anxiety Subjective Comment: Patient is more awake this morning. Per nursing note pt is lethargic and minimally responds to tactile stimuli last night and her medications were put on hold. MSE Orientation: time, place, person Affect: depressed, anxious Mood: congruent with affect Thought Process: Intact Perceptions: none Speech: normal rate and pattern Concentration: focused Motor activity: normal Level of consciousness: alert Memory: Intact Appetite: WNL Interaction: uncooperative Objective - Criteria for Continued Treatment Criteria for Continued Treatment: Improving Level of Functioning, Stablizing Level of Functioning, Improving Emotional/Socia - Objective Observation Participation Level: Minimal Assessment and Plan - Patient Problems (1) MDD (major depressive disorder), recurrent episode, severe Current Visit: Yes Status: Acute Plan to address problem: Patient will be admitted for inpatient psychiatric evaluation, medication adjustment and close monitoring The patient's behavior, mood, sleep and appetite will be closely monitored. Patient will be enrolled in individual and group therapeutic sessions and encouraged to attend. Patient will be provided with a safe and structured environment. Patient's physical health needs will be addressed by the Hospitalist. Social Assessment will be completed and the Email Marketing Processor will work with patient and family to ensure a suitable and safe disposition Medication adjustment will be made as clinically indicated Will continue Gabapentin 100mg tid and Seroquel 150mg qhs. Will decrease and discontinue Risperidone. (2) Anxiety disorder, unspecified Current Visit: Yes Status: Acute Plan to address problem: As above Medications and Allergies Allergies Allergy/AdvReac Type Severity Reaction Status Date / Time codeine AdvReac Unknown Verified 02/03/19 03:04 morphine AdvReac Unknown Verified 02/03/19 03:04 Penicillins AdvReac Unknown Verified 02/03/19 03:04 Home Medications Medication Instructions Recorded Confirmed Last Taken Type Hydrocodone-Acetamin 5-300 mg 5 - 325 mg PO BID PRN 02/02/19 02/02/19 Unknown Hi story Insulin NPH Human [place] 10 units SUB-Q TID 02/02/19 02/02/19 Unknown History [Humulin N] ALPRAZolam [Xanax TAB] 0.5 mg PO BID 02/03/19 02/03/19 Unknown History ARIPiprazole [Abilify TAB] 2 mg PO DAILY 02/03/19 02/03/19 Unknown History Allopurinol [Zyloprim] 300 mg PO DAILY 02/03/19 02/03/19 Unknown History Aspirin 325 mg PO DAILY 02/03/19 02/03/19 Unknown History Atenolol [Tenormin] 50 mg PO DAILY 02/03/19 02/03/19 Unknown History AtorvaSTATin [Lipitor] 40 mg PO HS 02/03/19 02/03/19 Unknown History Clopidogrel [Plavix] 75 mg PO DAILY 02/03/19 02/03/19 Unknown History Escitalopram [Lexapro] 10 mg PO DAILY 02/03/19 02/03/19 Unknown History Fexofenadine HCl 180 mg PO DAILY 02/03/19 02/03/19 Unknown History Insulin Glargine [Lantus VIAL] 30 units SUB-Q HS 02/03/19 02/03/19 Unknown History Insulin Regular, Human [Humulin R] 10 units SUB-Q TID 02/03/19 02/03/19 Unknown History Magnesium Oxide 400 400 mg PO DAILY 02/03/19 02/03/19 Unknown History Montelukast Sodium 10 mg PO DAILY 02/03/19 02/03/19 Unknown History Potassium Chloride [K-Dur] 20 meq PO DAILY 02/03/19 02/03/19 Unknown History Torsemide [Demadex] 20 mg PO DAILY 02/03/19 02/03/19 Unknown History Trazodone HCl 150 mg PO HS 02/03/19 02/03/19 Unknown History amLODIPine [Norvasc] 5 mg PO DAILY 02/03/19 02/03/19 Unknown History Active Meds: Active Medications Acetaminophen (Tylenol) 650 mg PO Q6H PRN PRN Reason: Pain, Mild (1-3) Last Admin: 02/13/19 13:29 Dose: 650 mg Documented by: Allopurinol (Zyloprim) 150 mg PO DAILY [facility] Last Admin: 02/22/19 12:38 Dose: 150 mg Documented by: Alprazolam (Xanax) 0.5 mg PO Q8HR [facility] Last Admin: 02/23/19 06:04 Dose: Not Given Documented by: Amlodipine Besylate (Norvasc) 5 mg PO DAILY [facility] Last Admin: 02/22/19 12:37 Dose: 5 mg Documented by: Aspirin (Aspirin) 325 mg PO DAILY [facility] Last Admin: 02/22/19 12:39 Dose: 325 mg Documented by: Atenolol (Tenormin) 50 mg PO DAILY [facility] Last Admin: 02/22/19 12:38 Dose: 50 mg Documented by: Atorvastatin Calcium (Lipitor) 40 mg PO HS [facility] Last Admin: 02/22/19 22:15 Dose: Not Given Documented by: Clopidogrel Bisulfate (Plavix) 75 mg PO DAILY [facility] Last Admin: 02/22/19 12:39 Dose: 75 mg Documented by: Dextrose (D50w (25gm) Syringe) 50 ml IV PRN PRN PRN Reason: Hypoglycemia Gabapentin (Neurontin) 100 mg PO Q8HR [facility] Last Admin: 02/23/19 06:04 Dose: Not Given Documented by: Haloperidol (Haldol) 5 mg PO Q6H PRN PRN Reason: Agitation Last Admin: 02/19/19 21:15 Dose: 5 mg Documented by: Haloperidol Lactate (Haldol) 5 mg IM Q6H PRN PRN Reason: Agitation Last Admin: 02/18/19 21:22 Dose: 5 mg Documented by: Insulin Glargine (Lantus) 20 units SUB-Q [facility] Last Admin: 02/23/19 00:03 Dose: Not Given Documented by: Insulin Human Lispro (Humalog) 0 unit SUB-Q [facility]; Protocol Last Admin: 02/22/19 22:00 Dose: Not Given Documented by: Loratadine (Claritin) 10 mg PO DAILY [facility] Last Admin: 02/22/19 12:37 Dose: 10 mg Documented by: Lorazepam (Ativan) 2 mg IM Q6H PRN PRN Reason: Agitation Last Admin: 02/18/19 21:23 Dose: 2 mg Documented by: Magnesium Oxide (Mag-Ox) 400 mg PO QDAY [facility] Last Admin: 02/22/19 12:39 Dose: 400 mg Documented by: Melatonin (Melatonin) 10 mg PO QPM [facility] Last Admin: 02/22/19 17:07 Dose: Not Given Documented by: Montelukast Sodium (Singulair) 10 mg PO DAILY [facility] Last Admin: 02/22/19 12:39 Dose: 10 mg Documented by: Pantoprazole Sodium (Protonix) 40 mg PO QDAY [facility] Last Admin: 02/22/19 12:37 Dose: 40 mg Documented by: Polyethylene Glycol (Miralax 3350) 17 gm PO QDAY PRN PRN Reason: Constipation Potassium Chloride (K-Dur) 20 meq PO DAILY [facility] Last Admin: 02/22/19 12:38 Dose: 20 meq Documented by: Quetiapine Fumarate (Seroquel) 100 mg PO QHS [facility] Last Admin: 02/22/19 22:16 Dose: Not Given Documented by: Quetiapine Fumarate (Seroquel) 50 mg PO QHS [facility] Last Admin: 02/22/19 22:17 Dose: Not Given Documented by: Risperidone (Risperdal) 2 mg PO QPM [facility] Last Admin: 02/22/19 17:18 Dose: Not Given Documented by: Trazodone HCl (Desyrel) 50 mg PO QHS [facility] Last Admin: 02/22/19 22:15 Dose: Not Given Documented by: Results - Results Labs/Vitals: Laboratory Last Values WBC 8.6 K/mm3 (4.5-11.0) 02/21/19 10:20 RBC 3.80 M/mm3 (3.65-5.03) 02/21/19 10:20 Hgb 12.0 gm/dl (10.1-14.3) 02/21/19 10:20 Hct 34.9 % (30.3-42.9) 02/21/19 10:20 MCV 92 fl (79-97) 02/21/19 10:20 MCH 32 pg (28-32) 02/21/19 10:20 MCHC 34 % (30-34) 02/21/19 10:20 RDW 15.1 % (13.2-15.2) 02/21/19 10:20 Plt Count 210 K/mm3 (140-440) 02/21/19 10:20 Lymph % (Auto) 11.6 % (13.4-35.0) L 02/21/19 10:20 [place] % (Auto) 13.1 % (0.0-7.3) H 02/21/19 10:20 Eos % (Auto) 1.2 % (0.0-4.3) 02/21/19 10:20 Baso % (Auto) 0.5 % (0.0-1.8) 02/21/19 10:20 Lymph # 1.0 K/mm3 (1.2-5.4) L 02/21/19 10:20 [place] # 1.1 K/mm3 (0.0-0.8) H 02/21/19 10:20 Eos # 0.1 K/mm3 (0.0-0.4) 02/21/19 10:20 Baso # 0.0 K/mm3 (0.0-0.1) 02/21/19 10:20 Seg Neutrophils % 73.6 % (40.0-70.0) H 02/21/19 10:20 Seg Neutrophils # 6.4 K/mm3 (1.8-7.7) 02/21/19 10:20 Sodium 141 mmol/L (137-145) 02/21/19 10:20 Potassium 4.7 mmol/L (3.6-5.0) 02/21/19 10:20 Chloride 105.2 mmol/L (98-107) 02/21/19 10:20 Carbon Dioxide 20 mmol/L (22-30) L 02/21/19 10:20 Anion Gap 21 mmol/L 02/21/19 10:20 BUN 27 mg/dL (7-17) H 02/21/19 10:20 Creatinine 1.8 mg/dL (0.7-1.2) H 02/21/19 10:20 Estimated GFR 27 ml/min 02/21/19 10:20 BUN/Creatinine Ratio 15 % 02/21/19 10:20 Glucose 159 mg/dL (65-100) H 02/21/19 10:20 POC Glucose 136 (70-105) H 02/22/19 19:57 Hemoglobin A1c 9.1 % (4-6) H 02/03/19 11:18 Calcium 8.5 mg/dL (8.4-10.2) 02/21/19 10:20 Total Bilirubin 0.80 mg/dL (0.1-1.2) 02/21/19 10:20 AST 82 units/L (5-40) H 02/21/19 10:20 ALT 46 units/L (7-56) 02/21/19 10:20 Alkaline Phosphatase 145 units/L (35-129) H 02/21/19 10:20 Total Protein 5.8 g/dL (6.3-8.2) L 02/21/19 10:20 Albumin 2.7 g/dL (3.9-5) L 02/21/19 10:20 Albumin/Globulin Ratio 0.9 % 02/21/19 10:20 Triglycerides 315 mg/dL (2-149) H 02/03/19 11:18 Cholesterol 190 mg/dL (50-199) 02/03/19 11:18 LDL Cholesterol Direct 116 mg/dL (50-130) 02/03/19 11:18 HDL Cholesterol 33 mg/dL (40-59) L 02/03/19 11:18 Cholesterol/HDL Ratio 5.75 % 02/03/19 11:18 Urine Color Yellow (Yellow) 02/15/19 15:25 Urine Turbidity Clear (Clear) 02/15/19 15:25 Urine pH 7.0 (5.0-7.0) 02/15/19 15:25 Ur Specific [place] 1.007 (1.003-1.030) 02/15/19 15:25 Urine Protein 100 mg/dl mg/dL (Negative) 02/15/19 15:25 Urine Glucose (UA) >=500 mg/dL (Negative) 02/15/19 15:25 Urine Ketones Neg mg/dL (Negative) 02/15/19 15:25 Urine Blood Sm (Negative) 02/15/19 15:25 Urine Nitrite Neg (Negative) 02/15/19 15:25 Urine Bilirubin Neg (Negative) 02/15/19 15:25 Urine Urobilinogen < 2.0 mg/dL (<2.0) 02/15/19 15:25 Ur Leukocyte Esterase Neg (Negative) 02/15/19 15:25 Urine WBC (Auto) 7.0 /HPF (0.0-6.0) H 02/15/19 15:25 Urine RBC (Auto) 3.0 /HPF (0.0-6.0) 02/15/19 15:25 U Epithel Cells (Auto) < 1.0 /HPF (0-13.0) 02/15/19 15:25 Hyaline Casts 2 /LPF 02/03/19 15:09 Urine Mucus Few /HPF 02/03/19 15:09 Urine Yeast (Budding) 2+ /HPF 02/15/19 15:25 Last Vital Signs Temp 98.5 F 02/22/19 19:44 Pulse 59 L 02/22/19 19:44 Resp 24 02/22/19 19:44 BP 135/51 02/22/19 19:44 Pulse Ox 94 02/22/19 19:44
[2019-02-23] MEDS: K-DUR PO SCH (09:40)
[2019-02-23] MEDS: HumaLOG SUB-Q SCH ×4 (09:40→21:51)
[2019-02-23] MEDS: ZYLOPRIM PO SCH (09:40)
[2019-02-23] MEDS: SINGULAIR PO SCH (09:40)
[2019-02-23] MEDS: ASPIRIN PO SCH (09:42)
[2019-02-23] MEDS: NORVASC PO SCH (09:42)
[2019-02-23] MEDS: CLARITIN PO SCH (09:42)
[2019-02-23] MEDS: PROTONIX PO SCH (09:42)
[2019-02-23] MEDS: PLAVIX PO SCH (09:42)
[2019-02-23] MEDS: MAG-OX PO SCH (09:43)
[2019-02-23] MEDS: TENORMIN PO SCH (09:43)
--- NOTE | 2019-02-23 14:28 | Cat Scan Report ---
CT HEAD WITHOUT CONTRAST HISTORY: Altered mental status. TECHNIQUE: Axial imaging performed from the skull apex through the skull base without the use of con trast. All CT scans at this location are performed using CT dose reduction for ALARA by means of aut omated exposure control. COMPARISON: None FINDINGS: Parenchyma: No acute intracranial hemorrhage or parenchymal abnormality.. Mild hypoattenuation thro ughout the white matter is noted and consistent with chronic microvascular ischemic disease. 5 mm chr onic lacunar infarct is identified in the lateral left thalamus. Ventricles: There is mild diffuse brain atrophy with commensurate ventricular enlargement which is l ikely age appropriate. Soft tissues: Soft tissues including the orbits appear normal. Bones: No acute osseous abnormality. Sinuses: Sinuses and mastoid air cells are clear. IMPRESSION: No acute abnormality. Mild volume loss and chronic white matter changes. Chronic lacunar infarct in the left thalamus. Signer Name: Arley Snow Jr, MD Signed: 02/23/2019 2:23 PM Workstation Name: [id number]
[2019-02-23] MEDS: MELATONIN PO SCH (17:28)
[2019-02-23] MEDS: RisperDAL PO SCH (17:29)
[2019-02-23] MEDS: DESYREL PO SCH (21:51)
[2019-02-24] MEDS: XANAX PO SCH ×2 (06:41→18:39)
[2019-02-24] MEDS: NEURONTIN PO SCH ×2 (06:41→18:39)
--- NOTE | 2019-02-24 09:12 | Progress Note ---
Subjective Date of service: 02/24/19 Principal diagnosis: Severe depression and Anxiety Subjective Comment: Patient is awake this morning. Per Nurse, Pt slept through the night, xanax and gabapentin held, pt is sedated, and no signs of distress. Pt stayed awake all evening and slept well throughout the entire night. Orientation: time, place, person Affect: depressed, anxious Mood: congruent with affect Thought Process: Intact Perceptions: none Speech: normal rate and pattern Concentration: focused Motor activity: normal Level of consciousness: alert Memory: Intact Appetite: WNL Interaction: uncooperative Objective - Criteria for Continued Treatment Criteria for Continued Treatment: Improving Level of Functioning, Stablizing Level of Functioning - Mental Status Mental Status: Alert - Objective Observation Participation Level: Minimal Reason(s) For Not Participating: Not Feeling Well Assessment and Plan - Patient Problems (1) MDD (major depressive disorder), recurrent episode, severe Current Visit: Yes Status: Acute Plan to address problem: Patient will be admitted for inpatient psychiatric evaluation, medication adjustment and close monitoring The patient's behavior, mood, sleep and appetite will be closely monitored. Patient will be enrolled in individual and group therapeutic sessions and encouraged to attend. Patient will be provided with a safe and structured environment. Patient's physical health needs will be addressed by the Hospitalist. Social Assessment will be completed and the Isotope Hydrologist will work with patient and family to ensure a suitable and safe disposition Medication adjustment will be made as clinically indicated (2) Anxiety disorder, unspecified Current Visit: Yes Status: Acute Plan to address problem: As above Medications and Allergies Allergies Allergy/AdvReac Type Severity Reaction Status Date / Time codeine AdvReac Unknown Verified 02/03/19 03:04 morphine AdvReac Unknown Verified 02/03/19 03:04 Penicillins AdvReac Unknown Verified 02/03/19 03:04 Home Medications Medication Instructions Recorded Confirmed Last Taken Type Allopurinol [Zyloprim] 300 mg PO DAILY 02/03/19 02/03/19 Unknown History Aspirin 325 mg PO DAILY 02/03/19 02/03/19 Unknown History Atenolol [Tenormin] 50 mg PO DAILY 02/03/19 02/03/19 Unknown History AtorvaSTATin [Lipitor] 40 mg PO HS 02/03/19 02/03/19 Unknown History Clopidogrel [Plavix] 75 mg PO DAILY 02/03/19 02/03/19 Unknown History Insulin Glargine [Lantus VIAL] 30 units SUB-Q HS 02/03/19 02/03/19 Unknown History Montelukast Sodium 10 mg PO DAILY 02/03/19 02/03/19 Unknown History Potassium Chloride [K-Dur] 20 meq PO DAILY 02/03/19 02/03/19 Unknown History Torsemide [Demadex] 20 mg PO DAILY 02/03/19 02/03/19 Unknown History amLODIPine [Norvasc] 5 mg PO DAILY 02/03/19 02/03/19 Unknown History ALPRAZolam [Xanax TAB] 0.5 mg PO Q8HR #90 tablet 02/24/19 Unknown Rx Gabapentin [Neurontin] 100 mg PO Q8HR #90 capsule 02/24/19 Unknown Rx Lispro Insulin [HumaLOG] 0 unit SUB-Q ACHS #30 units 02/24/19 Unknown Rx Melatonin [Melatonin 5MG TAB] 10 mg PO QPM #30 tablet 02/24/19 Unknown Rx Polyethylene Glycol 3350 [Miralax 17 gm PO QDAY PRN #30 powd.pack 02/24/19 Unknown Rx 3350] QUEtiapine [SEROquel] 50 mg PO QHS #60 tablet 02/24/19 Unknown Rx QUEtiapine [SEROquel] 100 mg PO QHS #30 tablet 02/24/19 Unknown Rx traZODone [Desyrel] 50 mg PO QHS #30 tablet 02/24/19 Unknown Rx Active Meds: Active Medications Acetaminophen (Tylenol) 650 mg PO Q6H PRN PRN Reason: Pain, Mild (1-3) Last Admin: 02/13/19 13:29 Dose: 650 mg Documented by: Allopurinol (Zyloprim) 150 mg PO DAILY [facility] Last Admin: 02/23/19 09:40 Dose: 150 mg Documented by: Alprazolam (Xanax) 0.5 mg PO Q8HR [facility] Last Admin: 02/24/19 06:41 Dose: Not Given Documented by: Amlodipine Besylate (Norvasc) 5 mg PO DAILY [facility] Last Admin: 02/23/19 09:42 Dose: 5 mg Documented by: Aspirin (Aspirin) 325 mg PO DAILY [facility] Last Admin: 02/23/19 09:42 Dose: 325 mg Documented by: Atenolol (Tenormin) 50 mg PO DAILY [facility] Last Admin: 02/23/19 09:43 Dose: 50 mg Documented by: Atorvastatin Calcium (Lipitor) 40 mg PO HS [facility] Last Admin: 02/23/19 21:52 Dose: 40 mg Documented by: Clopidogrel Bisulfate (Plavix) 75 mg PO DAILY [facility] Last Admin: 02/23/19 09:42 Dose: 75 mg Documented by: Dextrose (D50w (25gm) Syringe) 50 ml IV PRN PRN PRN Reason: Hypoglycemia Gabapentin (Neurontin) 100 mg PO Q8HR [facility] Last Admin: 02/24/19 06:41 Dose: Not Given Documented by: Haloperidol (Haldol) 5 mg PO Q6H PRN PRN Reason: Agitation Last Admin: 02/19/19 21:15 Dose: 5 mg Documented by: Haloperidol Lactate (Haldol) 5 mg IM Q6H PRN PRN Reason: Agitation Last Admin: 02/18/19 21:22 Dose: 5 mg Documented by: Insulin Glargine (Lantus) 20 units SUB-Q [facility] Last Admin: 02/23/19 21:21 Dose: 20 units Documented by: Insulin Human Lispro (Humalog) 0 unit SUB-Q [facility]; Protocol Last Admin: 02/23/19 21:51 Dose: 6 unit Documented by: Loratadine (Claritin) 10 mg PO DAILY [facility] Last Admin: 02/23/19 09:42 Dose: 10 mg Documented by: Lorazepam (Ativan) 2 mg IM Q6H PRN PRN Reason: Agitation Last Admin: 02/18/19 21:23 Dose: 2 mg Documented by: Magnesium Oxide (Mag-Ox) 400 mg PO QDAY [facility] Last Admin: 02/23/19 09:43 Dose: 400 mg Documented by: Melatonin (Melatonin) 10 mg PO QPM [facility] Last Admin: 02/23/19 17:28 Dose: 10 mg Documented by: Montelukast Sodium (Singulair) 10 mg PO DAILY [facility] Last Admin: 02/23/19 09:40 Dose: 10 mg Documented by: Pantoprazole Sodium (Protonix) 40 mg PO QDAY [facility] Last Admin: 02/23/19 09:42 Dose: 40 mg Documented by: Polyethylene Glycol (Miralax 3350) 17 gm PO QDAY PRN PRN Reason: Constipation Potassium Chloride (K-Dur) 20 meq PO DAILY [facility] Last Admin: 02/23/19 09:40 Dose: 20 meq Documented by: Quetiapine Fumarate (Seroquel) 100 mg PO QHS [facility] Last Admin: 02/23/19 21:52 Dose: 100 mg Documented by: Quetiapine Fumarate (Seroquel) 50 mg PO QHS [facility] Last Admin: 02/23/19 21:52 Dose: 50 mg Documented by: Risperidone (Risperdal) 1 mg PO QPM [facility] Stop: 02/26/19 17:59 Last Admin: 02/23/19 17:29 Dose: 1 mg Documented by: Trazodone HCl (Desyrel) 50 mg PO QHS [facility] Last Admin: 02/23/19 21:51 Dose: 50 mg Documented by: Results - Results Labs/Vitals: Laboratory Last Values WBC 8.6 K/mm3 (4.5-11.0) 02/21/19 10:20 RBC 3.80 M/mm3 (3.65-5.03) 02/21/19 10:20 Hgb 12.0 gm/dl (10.1-14.3) 02/21/19 10:20 Hct 34.9 % (30.3-42.9) 02/21/19 10:20 MCV 92 fl (79-97) 02/21/19 10:20 MCH 32 pg (28-32) 02/21/19 10:20 MCHC 34 % (30-34) 02/21/19 10:20 RDW 15.1 % (13.2-15.2) 02/21/19 10:20 Plt Count 210 K/mm3 (140-440) 02/21/19 10:20 Lymph % (Auto) 11.6 % (13.4-35.0) L 02/21/19 10:20 [place] % (Auto) 13.1 % (0.0-7.3) H 02/21/19 10:20 Eos % (Auto) 1.2 % (0.0-4.3) 02/21/19 10:20 Baso % (Auto) 0.5 % (0.0-1.8) 02/21/19 10:20 Lymph # 1.0 K/mm3 (1.2-5.4) L 02/21/19 10:20 [place] # 1.1 K/mm3 (0.0-0.8) H 02/21/19 10:20 Eos # 0.1 K/mm3 (0.0-0.4) 02/21/19 10:20 Baso # 0.0 K/mm3 (0.0-0.1) 02/21/19 10:20 Seg Neutrophils % 73.6 % (40.0-70.0) H 02/21/19 10:20 Seg Neutrophils # 6.4 K/mm3 (1.8-7.7) 02/21/19 10:20 Sodium 141 mmol/L (137-145) 02/21/19 10:20 Potassium 4.7 mmol/L (3.6-5.0) 02/21/19 10:20 Chloride 105.2 mmol/L (98-107) 02/21/19 10:20 Carbon Dioxide 20 mmol/L (22-30) L 02/21/19 10:20 Anion Gap 21 mmol/L 02/21/19 10:20 BUN 27 mg/dL (7-17) H 02/21/19 10:20 Creatinine 1.8 mg/dL (0.7-1.2) H 02/21/19 10:20 Estimated GFR 27 ml/min 02/21/19 10:20 BUN/Creatinine Ratio 15 % 02/21/19 10:20 Glucose 159 mg/dL (65-100) H 02/21/19 10:20 POC Glucose 246 (70-105) H 02/24/19 06:36 Hemoglobin A1c 9.1 % (4-6) H 02/03/19 11:18 Calcium 8.5 mg/dL (8.4-10.2) 02/21/19 10:20 Total Bilirubin 0.80 mg/dL (0.1-1.2) 02/21/19 10:20 AST 82 units/L (5-40) H 02/21/19 10:20 ALT 46 units/L (7-56) 02/21/19 10:20 Alkaline Phosphatase 145 units/L (35-129) H 02/21/19 10:20 Total Protein 5.8 g/dL (6.3-8.2) L 02/21/19 10:20 Albumin 2.7 g/dL (3.9-5) L 02/21/19 10:20 Albumin/Globulin Ratio 0.9 % 02/21/19 10:20 Triglycerides 315 mg/dL (2-149) H 02/03/19 11:18 Cholesterol 190 mg/dL (50-199) 02/03/19 11:18 LDL Cholesterol Direct 116 mg/dL (50-130) 02/03/19 11:18 HDL Cholesterol 33 mg/dL (40-59) L 02/03/19 11:18 Cholesterol/HDL Ratio 5.75 % 02/03/19 11:18 Urine Color Yellow (Yellow) 02/15/19 15:25 Urine Turbidity Clear (Clear) 02/15/19 15:25 Urine pH 7.0 (5.0-7.0) 02/15/19 15:25 Ur Specific [place] 1.007 (1.003-1.030) 02/15/19 15:25 Urine Protein 100 mg/dl mg/dL (Negative) 02/15/19 15:25 Urine Glucose (UA) >=500 mg/dL (Negative) 02/15/19 15:25 Urine Ketones Neg mg/dL (Negative) 02/15/19 15:25 Urine Blood Sm (Negative) 02/15/19 15:25 Urine Nitrite Neg (Negative) 02/15/19 15:25 Urine Bilirubin Neg (Negative) 02/15/19 15:25 Urine Urobilinogen < 2.0 mg/dL (<2.0) 02/15/19 15:25 Ur Leukocyte Esterase Neg (Negative) 02/15/19 15:25 Urine WBC (Auto) 7.0 /HPF (0.0-6.0) H 02/15/19 15:25 Urine RBC (Auto) 3.0 /HPF (0.0-6.0) 02/15/19 15:25 U Epithel Cells (Auto) < 1.0 /HPF (0-13.0) 02/15/19 15:25 Hyaline Casts 2 /LPF 02/03/19 15:09 Urine Mucus Few /HPF 02/03/19 15:09 Urine Yeast (Budding) 2+ /HPF 02/15/19 15:25 Last Vital Signs Temp 98.1 F 02/23/19 22:00 Pulse 72 02/23/19 22:00 Resp 20 02/23/19 22:00 BP 141/67 02/23/19 22:00 Pulse Ox 96 02/23/19 22:00
[2019-02-24] MEDS: HumaLOG SUB-Q SCH ×3 (09:56→16:54)
[2019-02-24] MEDS: ZYLOPRIM PO SCH (09:57)
[2019-02-24] MEDS: ASPIRIN PO SCH (09:57)
[2019-02-24] MEDS: CLARITIN PO SCH (09:57)
[2019-02-24] MEDS: PLAVIX PO SCH (09:57)
[2019-02-24] MEDS: MAG-OX PO SCH (09:57)
[2019-02-24] MEDS: SINGULAIR PO SCH (10:00)
[2019-02-24] MEDS: PROTONIX PO SCH (10:00)
[2019-02-24] MEDS: K-DUR PO SCH (10:00)
[2019-02-24] MEDS: NORVASC PO SCH (10:06)
[2019-02-24] MEDS: TENORMIN PO SCH (10:06)
[2019-02-24 10:16] VITALS: BP 120/57
--- NOTE | 2019-02-24 14:37 | Discharge Summary ---
Providers - Providers Date of Admission: 02/02/19 20:37 Date of discharge: 02/24/19 Attending physician: LLOYD PRIEST MD 02/02/19 17:42 Consult to Physician [CONS] Routine Comment: Consulting Provider: AMBER VEGA Physician Instructions: Reason For Exam: H&P MEDICAL MANAGEMENT 02/03/19 11:09 Physical Therapy Evaluation and Treat [CONS] Routine Comment: Reason For Exam: Unsteady gait 02/03/19 11:22 Consult to Wound/ET Nurse [CONS] Routine Reason For Exam: wound eval 02/03/19 12:35 Physical Therapy Evaluation and Treat [CONS] Routine Comment: Reason For Exam: gait evaluation/ambulatory dysfunction 02/18/19 12:51 Consult to Wound/ET Nurse [CONS] Routine Reason For Exam: wound eval- odor and drainage from wound 02/22/19 14:17 Consult to Physician [CONS] Routine Comment: Consulting Provider: MAYELIN HANKINS Physician Instructions: Reason For Exam: medical eval Primary care physician: [employer] Hospitalization Reason for admission: suicidal attempt via Drug Overdose with Xanax. Condition: Fair Hospital course: The patient was provided inpatient psychiatric treatment with safe and supportive environment, group therapy, individual counseling, psychiatric medication, medication adjustment, adverse effect monitor, medical evaluation, medical treatment, social service assessment, family/social support meeting, placement assessment and psycho-education. The patients mood, anxiety, thoughts, stress management skill, cognition, impulse/anger control, motivation, understanding of disease, compliance to treatment and appreciation on family/social support are improved and stabilized. At the time of discharge, the patient had no suicidal ideas, no homicidal ideas, no aggressive thoughts, no endangering behavior and no debilitating adverse effects. Disposition: DC-50 TO HOSPICE (HOME) Allergies/Adverse Reactions: Allergies codeine Adverse Reaction (Verified 02/03/19 03:04) Unknown morphine Adverse Reaction (Verified 02/03/19 03:04) Unknown Penicillins Adverse Reaction (Verified 02/03/19 03:04) Unknown Vital Signs: Last Vital Signs Temp 98.1 F 02/24/19 09:07 Pulse 75 02/24/19 10:06 Resp 18 02/24/19 09:07 BP 120/57 02/24/19 10:06 Pulse Ox 94 02/24/19 09:07 Last Lab: Laboratory Last Values WBC 8.6 K/mm3 (4.5-11.0) 02/21/19 10:20 RBC 3.80 M/mm3 (3.65-5.03) 02/21/19 10:20 Hgb 12.0 gm/dl (10.1-14.3) 02/21/19 10:20 Hct 34.9 % (30.3-42.9) 02/21/19 10:20 MCV 92 fl (79-97) 02/21/19 10:20 MCH 32 pg (28-32) 02/21/19 10:20 MCHC 34 % (30-34) 02/21/19 10:20 RDW 15.1 % (13.2-15.2) 02/21/19 10:20 Plt Count 210 K/mm3 (140-440) 02/21/19 10:20 Lymph % (Auto) 11.6 % (13.4-35.0) L 02/21/19 10:20 [place] % (Auto) 13.1 % (0.0-7.3) H 02/21/19 10:20 Eos % (Auto) 1.2 % (0.0-4.3) 02/21/19 10:20 Baso % (Auto) 0.5 % (0.0-1.8) 02/21/19 10:20 Lymph # 1.0 K/mm3 (1.2-5.4) L 02/21/19 10:20 [place] # 1.1 K/mm3 (0.0-0.8) H 02/21/19 10:20 Eos # 0.1 K/mm3 (0.0-0.4) 02/21/19 10:20 Baso # 0.0 K/mm3 (0.0-0.1) 02/21/19 10:20 Seg Neutrophils % 73.6 % (40.0-70.0) H 02/21/19 10:20 Seg Neutrophils # 6.4 K/mm3 (1.8-7.7) 02/21/19 10:20 Sodium 141 mmol/L (137-145) 02/21/19 10:20 Potassium 4.7 mmol/L (3.6-5.0) 02/21/19 10:20 Chloride 105.2 mmol/L (98-107) 02/21/19 10:20 Carbon Dioxide 20 mmol/L (22-30) L 02/21/19 10:20 Anion Gap 21 mmol/L 02/21/19 10:20 BUN 27 mg/dL (7-17) H 02/21/19 10:20 Creatinine 1.8 mg/dL (0.7-1.2) H 02/21/19 10:20 Estimated GFR 27 ml/min 02/21/19 10:20 BUN/Creatinine Ratio 15 % 02/21/19 10:20 Glucose 159 mg/dL (65-100) H 02/21/19 10:20 POC Glucose 445 (70-105) H 02/24/19 11:58 Hemoglobin A1c 9.1 % (4-6) H 02/03/19 11:18 Calcium 8.5 mg/dL (8.4-10.2) 02/21/19 10:20 Total Bilirubin 0.80 mg/dL (0.1-1.2) 02/21/19 10:20 AST 82 units/L (5-40) H 02/21/19 10:20 ALT 46 units/L (7-56) 02/21/19 10:20 Alkaline Phosphatase 145 units/L (35-129) H 02/21/19 10:20 Total Protein 5.8 g/dL (6.3-8.2) L 02/21/19 10:20 Albumin 2.7 g/dL (3.9-5) L 02/21/19 10:20 Albumin/Globulin Ratio 0.9 % 02/21/19 10:20 Triglycerides 315 mg/dL (2-149) H 02/03/19 11:18 Cholesterol 190 mg/dL (50-199) 02/03/19 11:18 LDL Cholesterol Direct 116 mg/dL (50-130) 02/03/19 11:18 HDL Cholesterol 33 mg/dL (40-59) L 02/03/19 11:18 Cholesterol/HDL Ratio 5.75 % 02/03/19 11:18 Urine Color Yellow (Yellow) 02/15/19 15:25 Urine Turbidity Clear (Clear) 02/15/19 15:25 Urine pH 7.0 (5.0-7.0) 02/15/19 15:25 Ur Specific [place] 1.007 (1.003-1.030) 02/15/19 15:25 Urine Protein 100 mg/dl mg/dL (Negative) 02/15/19 15:25 Urine Glucose (UA) >=500 mg/dL (Negative) 02/15/19 15:25 Urine Ketones Neg mg/dL (Negative) 02/15/19 15:25 Urine Blood Sm (Negative) 02/15/19 15:25 Urine Nitrite Neg (Negative) 02/15/19 15:25 Urine Bilirubin Neg (Negative) 02/15/19 15:25 Urine Urobilinogen < 2.0 mg/dL (<2.0) 02/15/19 15:25 Ur Leukocyte Esterase Neg (Negative) 02/15/19 15:25 Urine WBC (Auto) 7.0 /HPF (0.0-6.0) H 02/15/19 15:25 Urine RBC (Auto) 3.0 /HPF (0.0-6.0) 02/15/19 15:25 U Epithel Cells (Auto) < 1.0 /HPF (0-13.0) 02/15/19 15:25 Hyaline Casts 2 /LPF 02/03/19 15:09 Urine Mucus Few /HPF 02/03/19 15:09 Urine Yeast (Budding) 2+ /HPF 02/15/19 15:25 - Discharge Diagnoses (1) MDD (major depressive disorder), recurrent episode, severe Status: Acute (2) Anxiety disorder, unspecified Status: Acute Core Measure Documentation - Palliative Care Palliative Care/ Comfort Measures: Hospice Care (Home with Hospice care) - Core Measures Any of the following diagnoses?: none Exam - Constitutional Vitals: Temp Pulse Resp BP Pulse Ox 98.1 F 75 18 120/57 94 02/24/19 09:07 02/24/19 10:06 02/24/19 09:07 02/24/19 10:06 02/24/19 09:07 General appearance: Present: no acute distress - EENT Eyes: Present: PERRL, EOM intact ENT: hearing intact, clear oral mucosa - Neck Neck: Present: supple, normal ROM - Respiratory Respiratory effort: normal Plan Activity: advance as tolerated Weight Bearing Status: Weight Bear as Tolerated Care Plan Goals: Maintain good and stable mood Plan of Treatment: Take medications as prescribed Health Concerns: Depression Assessment: Depression Follow up with: PRIMARY CAREMD [Primary Care Provider] - 7 Days Prescriptions: traZODone [Desyrel] 50 mg PO QHS #30 tablet QUEtiapine [SEROquel] 100 mg PO QHS #30 tablet QUEtiapine [SEROquel] 50 mg PO QHS #60 tablet Lispro Insulin [HumaLOG] 0 unit SUB-Q ACHS #30 units Melatonin [Melatonin 5MG TAB] 10 mg PO QPM #30 tablet Polyethylene Glycol 3350 [Miralax 3350] 17 gm PO QDAY PRN #30 powd.pack PRN Reason: Constipation Gabapentin [Neurontin] 100 mg PO Q8HR #90 capsule ALPRAZolam [Xanax TAB] 0.5 mg PO Q8HR #90 tablet
--- NOTE | 2019-02-24 16:05 | Progress Note ---
Assessment and Plan AMS - axute metabolic encephalopathy - likely from medications and hyperglycemia - CT head w/o any acute findings - cont to treat hyperglycemia DM type 2, uncontrolled - increase lentus, add premeal insulin - give 8 unit regular insulin now, check BG again before d/c h/o CAD, HTN, stable, cont current meds patient planned to d/c home today with hospice Subjective Date of service: 02/24/19 Principal diagnosis: Severe depression and Anxiety Interval history: Patient seen and examined BG at 400s today Patient remains pleasantly confused Objective - Constitutional Vitals: Vital Signs - 12hr 02/24/19 02/24/19 02/24/19 09:07 10:00 10:06 Temperature 98.1 F Pulse Rate 75 75 75 Respiratory 18 Rate Blood Pressure 120/52 120/57 Blood Pressure 120/57 [Left] O2 Sat by Pulse 94 Oximetry General appearance: Present: no acute distress, well-nourished - EENT Eyes: PERRL, EOM intact ENT: hearing intact, clear oral mucosa Ears: bilateral: normal - Neck Neck: supple, normal ROM - Respiratory Respiratory effort: normal Respiratory: bilateral: CTA - Cardiovascular Rhythm: regular Heart Sounds: Present: S1 & S2. Absent: gallop, rub Extremities: pulses intact, No edema, normal color, Full ROM - Gastrointestinal General gastrointestinal: Present: soft, non-tender, non-distended, normal bowel sounds - Integumentary Integumentary: clear, warm, dry - Musculoskeletal Musculoskeletal: 1, strength equal bilaterally - Neurologic Neurologic: moves all extremities - Psychiatric Psychiatric: no appropriate mood/affect, no intact judgment & insight, no memory intact, cooperative - Labs CBC & Chem 7: 02/21/19 10:20 02/21/19 10:20 Labs: Abnormal lab results 02/23/19 02/23/19 02/23/19 Range/Units 12:02 16:39 20:11 POC Glucose 232 H 234 H 306 H (70-105) 02/24/19 02/24/19 02/24/19 Range/Units 06:36 11:55 11:58 POC Glucose 246 H 450 H 445 H (70-105) - Imaging and cardiology CT Scan - head: report reviewed
[2019-02-24] MEDS ORDERED: HumuLIN R SUB-Q SCH (16:30)
[2019-02-24] MEDS ORDERED: HumuLIN R SUB-Q ONE (17:00)
[2019-02-24] MEDS ORDERED: LANTUS SUB-Q SCH (18:00)
[2019-02-24] MEDS: MELATONIN PO SCH (19:33)
[2019-02-24] MEDS: RisperDAL PO SCH (19:33)
== END 2019-02-24 20:15 | disposition hospice, home (50) | DRG 885 ==
LOC: 3A 17:28 → UNDOADMIN 17:28 → 5A 20:37
PROVIDERS: ADMIT Psychiatry & Neurology Psychiatry; ATTEND Psychiatry & Neurology Psychiatry
DX: F33.2 Major depressive disorder, recurrent severe without psychotic features (principal); G92 Toxic encephalopathy; R53.2 Functional quadriplegia; N39.0 Urinary tract infection, site not specified; F41.9 Anxiety disorder, unspecified; M10.9 Gout, unspecified; E78.5 Hyperlipidemia, unspecified; Z96.653 Presence of artificial knee joint, bilateral; I25.10 Atherosclerotic heart disease of native coronary artery without angina pectoris; I48.91 Unspecified atrial fibrillation; E11.65 Type 2 diabetes mellitus with hyperglycemia; L89.152 Pressure ulcer of sacral region, stage 2; I11.0 Hypertensive heart disease with heart failure; Z95.1 Presence of aortocoronary bypass graft; Z79.01 Long term (current) use of anticoagulants; Z86.73 Personal history of transient ischemic attack (TIA), and cerebral infarction without residual deficits; Z88.5 Allergy status to narcotic agent; Z88.8 Allergy status to other drugs, medicaments and biological substances; Z88.0 Allergy status to penicillin; Z82.49 Family history of ischemic heart disease and other diseases of the circulatory system; Z83.3 Family history of diabetes mellitus; Z90.710 Acquired absence of both cervix and uterus; Z79.84 Long term (current) use of oral hypoglycemic drugs; Z79.899 Other long term (current) drug therapy
CPT/HCPCS: 36415; 70450; 80048; 80053; 80061; 81001; 82962; 83036; 85025; 85027; 87086; 87116; 93005; 93010; G0378; A9270-GY; J0515; J1630; J1815; J2060